=== PATIENT | male | born 1970 | race Caucasian/White ===

== ENCOUNTER 2017-01-04 12:21 | Observation (INO) ==
[2017-01-04 13:08] LABS: Basophils % 0.7 %; Eosinophils # 0.1 K/mcL (0.0-0.6); Eosinophils % 2.1 %; Hematocrit 33.6 % (37.5-50.1); Hemoglobin 11.1 g/dL (12.9-16.9); Immature Granulocytes % 0.7 % (0-4); Lymphocytes % 34.2 %; Mean Corpuscular Hemoglobin 31.5 pg (28.0-33.3); Mean Corpuscular Volume 95.5 fL (83.0-100.0); Mean Platelet Volume 10.7 fL (9.4-12.4); Monocytes # 0.2 K/mcL (0.0-1.3); Monocytes % 8.2 %; Neutrophils # 1.5 K/mcL (1.6-8.9); Platelet Count 113 K/mcL (140-400); Red Blood Count 3.52 M/mcL (4.19-5.50); Red Cell Distribution Width 14.6 % (11.5-14.5); Segmented Neutrophils % 54.1 %
[2017-01-04 13:24] LABS: Alanine Aminotransferase 31 Units/L (0-55); Albumin 2.3 g/dL (3.5-5.0); Albumin/Globulin Ratio 0.5 (1.1-2.2); Alkaline Phosphatase 77 Units/L (38-126); Aspartate Amino Transferase 37 Units/L (5-34); BUN/Creatinine Ratio 26 (6-26); Bilirubin,Total 0.3 mg/dL (0.2-1.2); Blood Urea Nitrogen 24 mg/dL (8-26); Calcium 8.7 mg/dL (8.6-10.8); Carbon Dioxide 31 mEq/L (19-29); Chloride 104 mEq/L (98-109); Globulin 4.4 g/dL (2.4-3.5); Glucose 222 mg/dL (70-99); Osmolality,Calculated 295 (280-300); Potassium 4.7 mEq/L (3.5-4.5); Sodium 137 mEq/L (136-145); Total Protein 6.7 g/dL (6.0-8.3); eGFR For African Americans > 60 (> 60); eGFR For Non-African Americans > 60 (> 60)
[2017-01-04 13:31] LABS: INR 1.2; Prothrombin Time 13.5 Seconds (9.4-12.1)
[2017-01-04 13:33] LABS: Activated Partial Thrombo Time 32.5 Seconds (26.0-36.0)
[2017-01-04] MEDS ORDERED: Nitroglycerin 0.4 MG TAB.SUBL SL PRN (14:16)
[2017-01-04] MEDS ORDERED: *HR* OxyCODONE/APAP 5/325 TABLET PO ONE (15:13)
[2017-01-04] MEDS ORDERED: Aspirin 81 MG TAB.CHEW ONE (15:20)
[2017-01-04] MEDS ORDERED: Aspirin 81 MG TAB.CHEW PO STA (15:25)
--- NOTE | 2017-01-04 15:38 | Emergency Department Note ---
Disposition Clinical Impression: Chest pain Disposition: Admitted As Inpatient Referrals: Richard Monte DO [Primary Care Provider] - Forms: ED Satisfaction Letter Chest Pain HPI - General Chief Complaint: ED Chest Pain Stated Complaint: Chest Pain Time Seen by Provider: 01/04/17 12:31 Source: patient Limitations: no limitations Vital Signs Reviewed: Yes Nursing Notes Reviewed: Yes - History of Present Illness HPI Narrative: Patient plains of chest pain that started last night. Patient states is similar to pain he had before and a heart attack last year. Patient also shortness of breath associated with this. Patient has recent chills denies numbness and tingling. Patient does note he feels the pain is going up his neck and down his left arm which is not had before. Patient took nitroglycerin was given subminimal relief but the symptoms came back. Patient denies dizziness Severity scale (1-10): 8 - Related Data Home Medications Medication Instructions Recorded Confirmed Aspirin [Adult Low Dose Aspirin EC] 81 mg PO DAILY 12/14/15 05/16/16 Atorvastatin [Lipitor] 80 mg PO HS 12/14/15 05/16/16 Clopidogrel [Plavix] 75 mg PO DAILY 12/14/15 05/16/16 Gabapentin [Neurontin] 600 mg PO TID 12/14/15 05/16/16 Lisinopril [Zestril] 5 mg PO DAILY 12/14/15 05/16/16 Metformin HCl [Metformin HCl ER] 500 mg PO DAILY 12/14/15 05/16/16 Metoprolol Succinate 50 mg PO DAILY 12/14/15 05/16/16 TraZODone 100 mg PO HS 12/14/15 05/16/16 Baclofen 20 mg PO TID 05/16/16 05/16/16 Pantoprazole Sodium [Protonix] 40 mg PO DAILY 05/16/16 05/16/16 Previous Rx's Medication Instructions Recorded HYDROcodone/Acet 10/325 mg [Cana 1 tab PO Q8HR PRN #20 tab 05/03/16 10-325 mg] Insulin ASPART [Novolog Flexpen] 15 unit SQ TID #0 05/18/16 Insulin Glargine,Hum.rec.anlog 50 unit SQ HS #0 05/18/16 [Lantus Solostar] Isosorbide MONOnitrate (24 HR) 30 mg PO DAILY #30 tab.er.24h 05/18/16 [Imdur] Cephalexin [Keflex] 500 mg PO TID #30 capsule 07/12/16 Sulfamethoxazole/Trimeth DS 1 each PO BID #20 tablet 07/12/16 [Bactrim DS] Amoxicillin 875 mg PO BID #20 tablet 08/19/16 Benzonatate [Tessalon] 200 mg PO TID PRN #30 capsule 08/19/16 Hydrocodone/Acetaminophen [Cana 1 tab PO TID PRN #6 tab 08/19/16 5-325 Tablet] Tobramycin/Dex Opth DROPS 1 drop BOTH EYES QID #5 bottle 08/19/16 [Tobradex Opth Drops] Benzonatate [Tessalon] 200 mg PO TID PRN #30 capsule 12/24/16 Cephalexin [Keflex] 500 mg PO QID #40 capsule 12/24/16 GuaiFENesin ER [Mucinex] 1,200 mg PO BID #20 tbbp.12hr 12/24/16 Allergies Allergy/AdvReac Type Severity Reaction Status Date / Time morphine AdvReac Agitated Verified 01/04/17 12:25 All systems ED: reviewed and negative except as stated. Chest Pain PMH - Past Medical History Medical history: Reports: coronary artery disease, diabetes, hepatitis Surgical history: Reports: angioplasty/stent, orthopedic, other Psychiatric history: Reports: depression - Social History Smoking Status: Current every day smoker Alcohol use: Reports: none Drug use: Reports: none Physical Exam - General Limitations: no limitations General appearance: alert, in no apparent distress - Head Head exam: atraumatic, normocephalic, normal inspection - Eye Eye exam: Present: normal appearance, PERRL, EOMI - ENT ENT exam: normal exam, normal oropharynx, mucous membranes moist - Neck Neck exam: Present: normal inspection, full ROM, trachea midline - Chest Chest inspection: Present: normal inspection, symmetric chest wall rise - Respiratory Respiratory exam: Present: normal lung sounds bilaterally - Cardiovascular Cardiovascular exam: Present: regular rate, normal rhythm, normal heart sounds - Abdominal Exam Abdominal exam: Present: soft, Non-Tender. Absent: tenderness, distention, guarding, rebound, rigidity - Extremities Exam Extremities exam: Present: normal inspection, full ROM. Absent: tenderness, pedal edema - Back Exam Back exam: Present: normal inspection, full ROM. Absent: tenderness - Neurological Exam Neurological exam: Present: alert, oriented X3 - Psychiatric Psychiatric exam: Present: normal affect, normal mood - Skin Skin exam: Present: warm, dry, intact, normal color Course Vital Signs Temperature 97.5 F L 01/04/17 12:25 Pulse Rate 77 01/04/17 12:25 Respiratory Rate 17 01/04/17 12:25 Blood Pressure 181/116 01/04/17 12:25 O2 Sat by Pulse Oximetry 97 01/04/17 12:25 Temperature 97.5 F L 01/04/17 12:25 Pulse Rate 75 01/04/17 14:28 Respiratory Rate 18 01/04/17 14:28 Blood Pressure 165/117 01/04/17 14:53 O2 Sat by Pulse Oximetry 97 01/04/17 14:28 Oxygen Delivery Oxygen Delivery Room Air Chest Pain - Differential Diagnosis Likely: stable angina, atypical chest pain, st elevation myocardial infraction, costalchondritis, chest pain - Lab Data Lab results reviewed: Yes I reviewed the patient's lab results. Result diagrams: 01/04/17 12:53 01/04/17 12:53 Lab Results 01/04/17 01/04/17 01/04/17 Range/Units 12:53 12:53 12:53 WBC 2.8 L (4.3-11.1) K/mcL RBC 3.52 L (4.19-5.50) M/mcL Hgb 11.1 L (12.9-16.9) g/dL Hct 33.6 L (37.5-50.1) % MCV 95.5 (83.0-100.0) fL MCH 31.5 (28.0-33.3) pg MCHC 33.0 (31.6-35.5) g/dL RDW 14.6 H (11.5-14.5) % Plt Count 113 L (140-400) K/mcL MPV 10.7 (9.4-12.4) fL Immature Gran % 0.7 (0-4) % Seg Neutrophils % 54.1 % Lymphocytes % 34.2 % Monocytes % 8.2 % Eosinophils % 2.1 % Basophils % 0.7 % Neutrophils # 1.5 L (1.6-8.9) K/mcL Lymphocytes # 1.0 (0.6-4.6) K/mcL Monocytes # 0.2 (0.0-1.3) K/mcL Eosinophils # 0.1 (0.0-0.6) K/mcL Basophils # 0.0 (0.0-0.2) K/mcL PT 13.5 H (9.4-12.1) Seconds INR 1.2 APTT 32.5 (26.0-36.0) Seconds Sodium 137 (136-145) mEq/L Potassium 4.7 H (3.5-4.5) mEq/L Chloride 104 (98-109) mEq/L Carbon Dioxide 31 H (19-29) mEq/L BUN 24 (8-26) mg/dL Creatinine 0.94 (0.72-1.25) mg/dL Est GFR ( Amer) > 60 (> 60) Est GFR (Non-Af Amer) > 60 (> 60) BUN/Creatinine Ratio 26 (6-26) Glucose 222 H (70-99) mg/dL Calculated Osmolality 295 (280-300) Calcium 8.7 (8.6-10.8) mg/dL Total Bilirubin 0.3 (0.2-1.2) mg/dL AST 37 H (5-34) Units/L ALT 31 (0-55) Units/L Alkaline Phosphatase 77 (38-126) Units/L Troponin I (0-0.03) ng/mL Serum Total Protein 6.7 (6.0-8.3) g/dL Albumin 2.3 L (3.5-5.0) g/dL Globulin 4.4 H (2.4-3.5) g/dL Albumin/Globulin Ratio 0.5 L (1.1-2.2) 01/04/17 Range/Units 12:53 WBC (4.3-11.1) K/mcL RBC (4.19-5.50) M/mcL Hgb (12.9-16.9) g/dL Hct (37.5-50.1) % MCV (83.0-100.0) fL MCH (28.0-33.3) pg MCHC (31.6-35.5) g/dL RDW (11.5-14.5) % Plt Count (140-400) K/mcL MPV (9.4-12.4) fL Immature Gran % (0-4) % Seg Neutrophils % % Lymphocytes % % Monocytes % % Eosinophils % % Basophils % % Neutrophils # (1.6-8.9) K/mcL Lymphocytes # (0.6-4.6) K/mcL Monocytes # (0.0-1.3) K/mcL Eosinophils # (0.0-0.6) K/mcL Basophils # (0.0-0.2) K/mcL PT (9.4-12.1) Seconds INR APTT (26.0-36.0) Seconds Sodium (136-145) mEq/L Potassium (3.5-4.5) mEq/L Chloride (98-109) mEq/L Carbon Dioxide (19-29) mEq/L BUN (8-26) mg/dL Creatinine (0.72-1.25) mg/dL Est GFR ( Amer) (> 60) Est GFR (Non-Af Amer) (> 60) BUN/Creatinine Ratio (6-26) Glucose (70-99) mg/dL Calculated Osmolality (280-300) Calcium (8.6-10.8) mg/dL Total Bilirubin (0.2-1.2) mg/dL AST (5-34) Units/L ALT (0-55) Units/L Alkaline Phosphatase (38-126) Units/L Troponin I 0.03 (0-0.03) ng/mL Serum Total Protein (6.0-8.3) g/dL Albumin (3.5-5.0) g/dL Globulin (2.4-3.5) g/dL Albumin/Globulin Ratio (1.1-2.2) - Radiology Data Radiology results reviewed: Yes I reviewed the patient's radiology results. Chest X-Ray 01/04/17 12:33 IMPRESSION: No acute cardiopulmonary process. D/ / Sophie Buchanan MD / Sophie Buchanan MD Interpreting Provider: Sophie Buchanan MD - EKG Data EKG attestation: Yes I reviewed and interpreted this EKG. EKG shows normal: sinus rhythm Rate: normal Rhythm: NSR Heart Score - Score History: Moderately Suspicious EKG: Normal Age: Less than 45 Risk Factors: Equal/Greater than 3 risk factor or history of atherosclerotic disease Troponin: Less than normal limit HEART Score Total: 3
--- NOTE | 2017-01-04 18:32 | Internal Med History&Physical ---
Date of Encounter: 01/04/17 Time of Encounter: 18:25 Assessment and Plan (1) Hypertension Current visit: No Status: Chronic uncontrolled patient know to be non compliant will resume home meds Qualifiers: Hypertension type: essential hypertension Qualified Code(s): I10 - Essential (primary) hypertension (2) Hyperlipidemia Current visit: No Status: Chronic check in am Qualifiers: Hyperlipidemia type: unspecified Qualified Code(s): E78.5 - Hyperlipidemia , unspecified (3) Hepatitis C Current visit: No Status: Chronic chronic Qualifiers: Viral hepatitis chronicity: unspecified Hepatic coma status: without hepatic coma Qualified Code(s): B19.20 - Unspecified viral hepatitis C without hepatic coma (4) Cirrhosis Current visit: No Status: Chronic chronic Qualifiers: Hepatic cirrhosis type: unspecified hepatic cirrhosis Ascites presence: without ascites Qualified Code(s): K74.60 - Unspecified cirrhosis of liver (5) Tobacco abuse Current visit: No Status: Chronic still smokes (6) History of myocardial infarction Current visit: No Status: Chronic (7) Diabetes Current visit: No Status: Chronic will place on sliding scale Qualifiers: Diabetes mellitus type: type 2 Diabetes mellitus complication status: with unspecified complications Diabetes mellitus usp insulin use: with termite control representative use Qualified Code(s): E11.8 - Type 2 diabetes mellitus with unspecified complications; Z79.4 - snf (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 insulin (8) Uncontrolled type II diabetes mellitus Current visit: No Status: Chronic Qualifiers: Diabetes mellitus complication status: with unspecified complications Diabetes mellitus usp insulin use: with termite control representative use Qualified Code(s) : E11.8 - Type 2 diabetes mellitus with unspecified complications; E11.65 - Type 2 diabetes mellitus with hyperglycemia; Z79.4 - snf (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 insulin (9) HTN (hypertension) Current visit: No Status: Chronic uncontrolled Qualifiers: Hypertension type: essential hypertension Qualified Code(s): I10 - Essential (primary) hypertension (10) Chest pain Current visit: No Status: Acute has history of cad but this chest pain is atypical despite several hours of chest pain ekg and troponin negative however nuclear stress in am and cardiology consult Qualifiers: Chest pain type: unspecified Qualified Code(s): R07.9 - Chest pain, unspecified Internal Medicine - H&P: HPI Chief complaint: cchest pain Admitted From: Emergency Dept Plans for Post Hospital Care: Home History of present illness: Mr. Hi is a 46 year old male Patient with history of CAD, had multiple angioplasties in the past LAD: RCA and diagonal last intervention May 16 last year had a stent to RCA and also diagonal EF 40-45% at that time. Patient Returned about a week after with chest pain underwent Cardiac cath again showed stents were all patent He was on again after taht with chest pain Patient also has history of cirrhosis, diabetes, hypercholesterol, neuropathy, chronic active hepatitis , COPD, Patient comes in to ER that he developed chest pain yesterday which is a constant sharp pain that sometimes pressure constant but sometimes get worse . came into the emergency room and given Percocet, nitroglycerin and does not want nitro lycerin says makes chest pain worse chest pain sometime going to his neck and left arm still having pain EKG was unremarkable troponin so far is negative Past Med Surg Social Fam HX - Past Medical History Medical history: coronary artery disease, diabetes, hepatitis Psychiatric history: depression - Past Surgical History Surgical History: angioplasty/stent, orthopedic, other - Social History Smokeless Tobacco Status: No Alcohol use: none Drug use: none - Family History Mother Family Member Ethnicity: Non- Living Status: Still Living Hx Family GI Disorders: Yes (Irritable bowel syndrome) Hx Family Endocrine Disorder: Yes Father Hx Family Cardiac Disorders: Yes (CAD s/p CABG) Internal Medicine - H&P: Meds Aspirin [Adult Low Dose Aspirin EC] 81 mg PO DAILY 12/14/15 [History] Clopidogrel [Plavix] 75 mg PO DAILY 12/14/15 [History] Metformin HCl [Metformin HCl ER] 1,000 mg PO DAILY 12/14/15 [History] Metoprolol Succinate 50 mg PO DAILY 12/14/15 [History] TraZODone 100 mg PO HS 12/14/15 [History] Baclofen 20 mg PO TID 05/16/16 [History] Pantoprazole Sodium [Protonix] 40 mg PO DAILY 05/16/16 [History] Insulin ASPART [Novolog Flexpen] 15 unit SQ TID #0 05/18/16 [Rx] Insulin Glargine,Hum.rec.anlog [Lantus Solostar] 50 unit SQ HS #0 05/18/16 [Rx] Benzonatate [Tessalon] 200 mg PO TID PRN #30 capsule 12/24/16 [Rx] Cephalexin [Keflex] 500 mg PO QID #40 capsule 12/24/16 [Rx] Gabapentin [Neurontin] 800 mg PO TID 01/04/17 [History] Lisinopril-HCTZ 20-12.5 [Prinzide 20-12.5] 1 tab PO BID 01/04/17 [History] Nitroglycerin [Nitrostat] 0.4 mg SL AD PRN 01/04/17 [History] Oxycodone HCl/Acetaminophen [Percocet 10-325 mg Tablet] 1 - 2 tab PO Q6H PRN [History] Allergies morphine Adverse Reaction (Verified 01/04/17 12:25) Agitated All Systems PM: A 10-system review of systems was performed and is negative for pertinent findings except as documented above in the HPI. - Constitutional Constitutional: no chills, no fever(s), no night sweats - EENT Eyes: no change in vision, no discharge, no pain, no photophobia Ears: no ear discharge, no ear pain, no tinnitus Nose, mouth and throat: no dysphagia, no nasal discharge, no neck pain, no sore throat - Cardiovascular Cardiovascular ROS IM: chest pain, dyspnea - Respiratory Respiratory: dyspnea, dyspnea on exertion - Gastrointestinal Gastrointestinal: no abdominal pain, no diarrhea, no hematemesis, no hematochezia, no melena, no nausea, no vomiting - Musculoskeletal Musculoskeletal ROS IM: no numbness, no tingling - Integumentary Integumentary IM: no rash, no unusual bruising - Neurological Neurological ROS: no confusion, no convulsions, no focal weakness, no numbness, no tingling, no tremor(s) - Constitutional Vitals: Temp Pulse Resp BP Pulse Ox 97.5 F L 75 18 165/117 97 01/04/17 12:25 01/04/17 14:28 01/04/17 14:28 01/04/17 14:53 01/04/17 14:28 General appearance: Present: A&O X 2 - Head Head exam: Present: atraumatic, normocephalic - Eye Eye exam: Present: PERRL, conjuntiva pink, sclera anicteric Pupils: Present: PERRL - Neck Neck exam general surgery: Present: supple, trachea midline. Absent: lymphadenopathy - Respiratory Respiratory exam: Present: CTAB. Absent: accessory muscle use, rales, rhonchi, wheezes - Cardiovascular Cardiovascular exam: Present: RRR, +S1, +S2. Absent: diastolic murmur, gallop, rubs, systolic murmur - Extremities Exam Extremities exam: Present: warm, radial pulses palpable and symetrical. Absent : calf tenderness, cyanotic, pedal edema Internal Med - H&P Results - Labs CBC & Chem 7: 01/04/17 12:53 01/04/17 12:53
[2017-01-04] MEDS ORDERED: *HR* HYDROmorphone (PF) 1 MG/ML SYRINGE IVP PRN (18:38)
[2017-01-04] MEDS ORDERED: Naloxone 0.4 MG/ML INJ IVP PRN (18:38)
[2017-01-04] MEDS ORDERED: Ondansetron 4 MG/2 ML VIAL IVP PRN (18:38)
[2017-01-04] MEDS ORDERED: Benzonatate 100 MG CAPSULE PO PRN (18:46)
[2017-01-04] MEDS ORDERED: D5% in Water 1,000 ML IVC PRN (18:48)
[2017-01-04] MEDS ORDERED: Dextrose Gel 15 GM PO PRN ×2 (18:48)
[2017-01-04] MEDS ORDERED: *HR* Dextrose 50 % in Water (Syg) 50 ML SYRINGE IVP PRN (18:48)
[2017-01-04] MEDS: Gabapentin 400 MG CAPSULE PO SCH (19:59)
[2017-01-04] MEDS: Baclofen 10 MG TABLET PO SCH (19:59)
[2017-01-04] MEDS: 0.9 % Sodium Chloride 1,000 ML IVC SCH (19:59)
[2017-01-04] MEDS ORDERED: Insulin DETEMIR 100 UNIT/ML X5UNITS SQ SCH (21:00)
[2017-01-04] MEDS ORDERED: traZODone 50 MG TABLET PO SCH (21:00)
[2017-01-04] MEDS ORDERED: Insulin LISPRO 300 UNITS/3 ML VIAL SQ SCH (21:00)
[2017-01-04] MEDS: *HR* OxyCODONE/APAP 10/325 TABLET PO PRN (21:10)
[2017-01-04] MEDS: Lisinopril-HCTZ 20-12.5mg TABLET PO SCH (21:11)
[2017-01-05] MEDS ORDERED: Insulin LISPRO 300 UNITS/3 ML VIAL SQ SCH
[2017-01-05 01:54] LABS: Basophils % 0.6 %; Eosinophils # 0.1 K/mcL (0.0-0.6); Hematocrit 33.8 % (37.5-50.1); Hemoglobin 11.3 g/dL (12.9-16.9); Immature Granulocytes % 0.3 % (0-4); Lymphocytes # 1.8 K/mcL (0.6-4.6); Lymphocytes % 52.1 %; Mean Corpuscular HGB Conc 33.4 g/dL (31.6-35.5); Mean Corpuscular Hemoglobin 32.1 pg (28.0-33.3); Mean Platelet Volume 11.8 fL (9.4-12.4); Monocytes # 0.3 K/mcL (0.0-1.3); Monocytes % 8.3 %; Neutrophils # 1.2 K/mcL (1.6-8.9); Platelet Count 129 K/mcL (140-400); Red Blood Count 3.52 M/mcL (4.19-5.50); Red Cell Distribution Width 14.7 % (11.5-14.5); Segmented Neutrophils % 35.7 %
[2017-01-05 02:14] LABS: Alanine Aminotransferase 28 Units/L (0-55); Albumin 2.2 g/dL (3.5-5.0); Albumin/Globulin Ratio 0.5 (1.1-2.2); Alkaline Phosphatase 78 Units/L (38-126); Aspartate Amino Transferase 30 Units/L (5-34); BUN/Creatinine Ratio 21 (6-26); Bilirubin,Total 0.3 mg/dL (0.2-1.2); Blood Urea Nitrogen 21 mg/dL (8-26); Calcium 8.6 mg/dL (8.6-10.8); Carbon Dioxide 29 mEq/L (19-29); Chloride 108 mEq/L (98-109); Chol/HDL Ratio 8.2 (0-4.9); Cholesterol 196 mg/dL (< 200); Globulin 4.2 g/dL (2.4-3.5); Glucose 55 mg/dL (70-99); HDL Cholesterol 24 mg/dL (40-59); LDL Cholesterol,Calculated 138 mg/dL (0-99); Magnesium 1.6 mg/dL (1.6-2.6); Osmolality,Calculated 297 (280-300); Potassium 4.1 mEq/L (3.5-4.5); Sodium 143 mEq/L (136-145); Total Protein 6.4 g/dL (6.0-8.3); Triglycerides 170 mg/dL (< 150); eGFR For African Americans > 60 (> 60); eGFR For Non-African Americans > 60 (> 60)
[2017-01-05] MEDS: *HR* OxyCODONE/APAP 10/325 TABLET PO PRN ×2 (04:01→11:56)
[2017-01-05] MEDS ORDERED: Regadenoson 0.4 MG/5 ML SYRINGE IVP ONE (06:44)
[2017-01-05] MEDS: Insulin LISPRO 300 UNITS/3 ML VIAL SQ SCH ×2 (08:02→11:55)
[2017-01-05] MEDS ORDERED: Aspirin Enteric Coated 81 MG Tablet PO SCH (09:00)
[2017-01-05] MEDS ORDERED: Metoprolol XL (24 HR) Succ 50 MG TAB.ER.24H PO SCH (09:00)
[2017-01-05] MEDS: Gabapentin 400 MG CAPSULE PO SCH (10:38)
[2017-01-05] MEDS: Lisinopril-HCTZ 20-12.5mg TABLET PO SCH (10:38)
[2017-01-05] MEDS: Baclofen 10 MG TABLET PO SCH (10:39)
[2017-01-05 10:47] VITALS: BP 154/89
--- NOTE | 2017-01-05 10:49 | Nuclear Medicine Stress Report ---
Regadenoson Nuclear Stress Name: Bartolo Hi Date of Study: 01/05/2017 Date: 1970 Ht: 72.0 in Medical Record#: [id number] Age: 46 Wt: 212.0 lb Gender: Male Order #: [id number] Location: [facility] Room: [facility] Supervising Provider: Markell Ford CNP Reading Physician: Jorge L Wood MD, [facility] Ordering Physician: Tank Whitehead DO Primary Care Physician: Richard Monte DO Stress Technologist: Montse Bowers, [employer],[facility] Welder Operator: Chris Lubin Indications: Coronary Artery Disease, Chest Pain Impression: Patient reported moderate chest pain prior to the test. Chest pain did not change with regadenoson. No significant ECG changes with regadenoson. The left ventricle is dilated. LVEDV = 202 mL. Gated LVEF = 56%. There is a medium sized, severe intensity, fixed perfusion defect involving the basal inferoseptum, basal-mid inferior wall, and basal-mid inferolateral wall. Findings are consistent with myocardial infarction involving the basal inferoseptum, basal-mid inferior wall, and basal-mid inferolateral wall. There is no evidence of reversible myocardial ischemia. History: Hypertension Diabetes History of Smoking Prior PCI Stress Test Summary: Stress Test Type: Pharmacologic Regadenoson 0.4mg/5ml given IV Baseline Information: Initial Heart Rate: 72 Blood Pressure: 148/92 Stress Information: Test Terminated Due to (primary): As per protocol Maximum Blood Pressure: 168/80 Maximum Heart Rate: 86 Percent Maximum Heart Rate Achieved: 49 Double Product: 93000 Symptoms: Chest pain Nuclear Summary: SPECT myocardial perfusion imaging using Tc99m Sestamibi given intravenously was performed at rest and following cardiac stress testing. The resting images were obtained following initial dose of 10.5 mCi. Following stress an additional dose of 32.2 mCi was given at peak exercise or 30 seconds post regadenoson infusion. Findings: Stress Note * Resting ECG demonstrated sinus rhythm, non-specific ST abnormality. * No baseline arrhythmias were noted. * Patient reported moderate chest pain prior to the test. Chest pain did not change with regadenoson. * No arrhythmias were noted during stress. * No significant ECG changes with regadenoson. Hemodynamic responses * Normal hemodynamic responses to pharmacologic stress. Study Quality * Study quality is average. Gated EF % * Gated LVEF = 56%. Left Ventricle * The left ventricle is dilated. LVEDV = 202 mL. * There is a medium sized, severe intensity, fixed perfusion defect involving the basal inferoseptum, basal-mid inferior wall, and basal-mid inferolateral wall. * Findings are consistent with myocardial infarction involving the basal inferoseptum, basal-mid inferior wall, and basal-mid inferolateral wall. * There is no evidence of reversible myocardial ischemia. TID * No evidence of transient ischemic dilatation. Updated by Jorge L Wood MD, FACC on 01/05/2017 10:44:43 AM electronically signed on 01/05/2017 10:45:33 AM with status of Final
[2017-01-05] MEDS: 0.9 % Sodium Chloride 1,000 ML IVC SCH (12:12)
--- NOTE | 2017-01-05 15:05 | Discharge Summary ---
Date of Encounter: 01/05/17 Time of Encounter: 14:15 - Discharge Diagnosis (1) Chest pain Priority: Primary Status: Acute Comments: ACS ruled out, follow-up outpatient. Started on Imdur (2) Drug-seeking behavior Priority: Primary Status: Suspected Comments: Patient appeared sedated/oovermedicated with continuation of his regular home pain meds while admitted (OARRS report checked out okay). Even though he was quite sedated on examination, he still requested anxiety medication thinking that his attacks of chest pain are anxiety related. No further control substances were added to his regimen, started on Imdur, follow-up outpatient (3) Hypertension Priority: Secondary Status: Chronic Comments: Borderline hypertensive at times, recommended the blood pressure checks, keeping a log, and following up outpatient. Qualifiers: Hypertension type: essential hypertension Qualified Code(s): I10 - Essential (primary) hypertension (4) Hyperlipidemia Priority: Secondary Status: Chronic Comments: Lipid panel abnormal, started on a statin, recommended low-cholesterol diet Qualifiers: Hyperlipidemia type: unspecified Qualified Code(s): E78.5 - Hyperlipidemia , unspecified (5) Hepatitis C Priority: Secondary Status: Chronic Comments: LFT stable, follow-up outpatient Qualifiers: Viral hepatitis chronicity: unspecified Hepatic coma status: without hepatic coma Qualified Code(s): B19.20 - Unspecified viral hepatitis C without hepatic coma (6) Cirrhosis Priority: Secondary Status: Chronic Qualifiers: Hepatic cirrhosis type: unspecified hepatic cirrhosis Ascites presence: without ascites Qualified Code(s): K74.60 - Unspecified cirrhosis of liver (7) Tobacco abuse Priority: Secondary Status: Chronic Comments: One pack per day smoker since he was a child. Declined counseling (8) Low back pain Priority: Secondary Status: Chronic Qualifiers: Chronicity: chronic Back pain laterality: midline Sciatica presence: without sciatica Qualified Code(s): M54.5 - Low back pain; G89.29 - Other chronic pain (9) Status post lumbar surgery Priority: Secondary Status: Chronic (10) History of myocardial infarction Priority: Secondary Status: Chronic (11) Stented coronary artery Priority: Secondary Status: Chronic Comments: Continue aspirin and Plavix, follow-up outpatient (12) DVT prophylaxis Priority: Primary Status: Acute Comments: Observation patient. Up ad nacho. (13) CAD, multiple vessel Priority: Secondary Status: Chronic (14) Uncontrolled type II diabetes mellitus Priority: Secondary Status: Chronic Comments: Patient with long history of noncompliance. Recent A1c at the end of last year is 9.7%. Recommend continued follow-up outpatient. Qualifiers: Diabetes mellitus complication status: with hyperglycemia Diabetes mellitus intermediate manager insulin use: with shelter use Qualified Code(s): E11.65 - Type 2 diabetes mellitus with hyperglycemia; Z79.4 - intermediate manager (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 insulin (15) History of noncompliance with medical treatment Priority: Secondary Status: Chronic - Discharge Medications Prescriptions: Albuterol Sulfate [Albuterol Inhaler] 2 puff IH Q4HR PRN #1 hfa.aer.ad PRN Reason: Shortness Of Breath Fluticasone/Salmeterol [Advair 250-50 Diskus] 1 each IH BID #1 blst.w.dev Isosorbide MONOnitrate (24 HR) [Imdur] 60 mg PO DAILY #30 tab.er.24h Home Medications: Aspirin [Adult Low Dose Aspirin EC] 81 mg PO DAILY 12/14/15 [History] Clopidogrel [Plavix] 75 mg PO DAILY 12/14/15 [History] Metformin HCl [Metformin HCl ER] 1,000 mg PO DAILY 12/14/15 [History] Metoprolol Succinate 50 mg PO DAILY 12/14/15 [History] TraZODone 100 mg PO HS 12/14/15 [History] Baclofen 20 mg PO TID 05/16/16 [History] Pantoprazole Sodium [Protonix] 40 mg PO DAILY 05/16/16 [History] Insulin ASPART [Novolog Flexpen] 15 unit SQ TID #0 05/18/16 [Rx] Insulin Glargine,Hum.rec.anlog [Lantus Solostar] 50 unit SQ HS #0 05/18/16 [Rx] Benzonatate [Tessalon] 200 mg PO TID PRN #30 capsule 12/24/16 [Rx] Cephalexin [Keflex] 500 mg PO QID #40 capsule 12/24/16 [Rx] Gabapentin [Neurontin] 800 mg PO TID 01/04/17 [History] Lisinopril-HCTZ 20-12.5 [Prinzide 20-12.5] 1 tab PO BID 01/04/17 [History] Nitroglycerin [Nitrostat] 0.4 mg SL AD PRN 01/04/17 [History] Oxycodone HCl/Acetaminophen [Percocet 10-325 mg Tablet] 1 - 2 tab PO Q6H PRN [History] Albuterol Sulfate [Albuterol Inhaler] 2 puff IH Q4HR PRN #1 hfa.aer.ad 01/05/17 [Rx] Fluticasone/Salmeterol [Advair 250-50 Diskus] 1 each IH BID #1 blst.w.dev [Rx] Isosorbide MONOnitrate (24 HR) [Imdur] 60 mg PO DAILY #30 tab.er.24h 01/05/17 [ Rx] Allergies/Adverse Reactions: Allergies morphine Adverse Reaction (Verified 01/04/17 12:25) Agitated Procedures/tests Complete & Pending: Procedures Performed prior 72 hours Category Date Time Status NM terry perf SPECT multi [NM] Routine Exams 01/04/17 18:46 Taken ECG 12 lead ECG [ECG] AM 0600 Y 01/05/17 06:00 Ordered SP pharm nuclear stress Routine Y 01/04/17 18:46 Completed Date of admission: 01/04/17 17:22 Primary care physician: Phong Hardy Discharging clinician: Kell Morales Anticipated date of discharge: 01/05/17 - Patient Status Disposition: Home, Self-Care Condition: Fair Functional capacity at discharge: independent ambulation Overall status at discharge: patient is back to baseline - Discharge Instructions Follow Up With: Richard Monte DO [Primary Care Provider] - [facility] [Provider Group] Additional Instructions: Follow-up with primary care provider within one to 2 weeks, follow-up with cardiology within 1 week - Diet and Activity Activity: increase activity as tolerated Diet: diabetic diet, low fat, low cholesterol, low salt diet Hospital course: Mr. Hi is a 46 year old male with past medical history of CAD with stent to LAD, uncontrolled diabetes, hepatitis, noncompliance, tobacco abuse. Patient presented to the emergency department chief complaint chest pain that is constant, sharp but sometimes pressure and had gotten worse prompting his presentation to the emergency department. Patient refused nitroglycerin in the emergency department stating he thinks it makes his chest pain worse and he recommended us giving him his Percocet. Patient also endorsed pain in his neck and his left arm. EKG unremarkable. Troponin negative. Chest x-ray negative. Patient was admitted to the hospitalist service for further evaluation and management. Patient had a nuclear stress test that was negative for ischemia or infarct and revealed an ejection fraction of 56%. ACS ruled out. Upon further discussion with the patient, he is a one pack per day smoker since his childhood. On examination, aeration is fair with diffuse expiratory wheezing noted throughout. Patient stating he has never been seen for his lungs and states she has never been diagnosed with COPD. Strong suspicion for undiagnosed COPD. Patient was given inhalers to trial at home and was instructed to follow up closely with his primary care provider. He also continued to complain of chest pain and stated he felt as if it was consistent with anxiety attacks and he requested anxiety medication. Of note, patient appeared overmedicated with his regular home pain medications were resumed. His OARRS report did checkout. He was started on Imdur given that he had a left heart catheter on 05/18/16 which revealed three-vessel coronary artery disease and a patent stent. He will follow-up with cardiology 1 week outpatient. He has a history of poor follow-up and noncompliance and he was educated to keep his appointment with his primary and with cardiology. He was discharged home in stable condition with close outpatient follow-up recommended. ITS Impressions Chest X-Ray 01/04/17 12:33 IMPRESSION: No acute cardiopulmonary process. D/ / Sophie Buchanan MD / Sophie Buchanan MD Interpreting Provider: Sophie Buchanan MD Nuclear stress test impression: Patient reported moderate chest pain prior to the test. Chest pain did not change with Regadenoson. No significant ECG changes with Regadenoson. The left ventricle is dilated. LVEDP equals 202 mL. Gated LVEF equals 56%. There is a medium size, severe intensity, fixed perfusion defect involving the basal inferior septum, basal-mid inferior wall, and basal-mid inferolateral wall. Findings are consistent with myocardial infarction involving the basal inferior septum, basal-mid inferior wall, and basal-mid inferior lateral wall. There is no evidence of reversible myocardial ischemia. - Time Spent with Patient Total time spent providing and/or coordinating discharge services: - Constitutional Vitals: Temp Pulse Resp BP Pulse Ox 97.2 F L 79 17 154/89 96 01/05/17 10:45 01/05/17 10:45 01/05/17 10:45 01/05/17 10:45 01/05/17 10:45 General appearance: Present: A&O X 3, pleasant, no acute distress, answers questions appropriately - Head Head exam: Present: atraumatic, normocephalic - Eye Eye exam: Present: PERRL, conjuntiva pink, sclera anicteric Pupils: Present: PERRL - Neck Neck exam general surgery: Present: supple, trachea midline. Absent: lymphadenopathy - Respiratory Respiratory exam: Present: decreased breath sounds, prolonged expiratory phase, wheezes. Absent: accessory muscle use, rales, respiratory distress, rhonchi - Cardiovascular Cardiovascular exam: Present: RRR, +S1, +S2. Absent: diastolic murmur, gallop, rubs, systolic murmur - GI/Abdominal GI/Abdominal exam: Present: normal bowel sounds, soft, no peritoneal signs. Absent: distended, tenderness - Extremities Exam Extremities exam: Present: warm, radial pulses palpable and symetrical. Absent : calf tenderness, cyanotic, pedal edema - Neurological Exam Neurological exam: Present: alert, CN II-XII intact, normal gait, oriented X3, no focal deficits, strengths equal and symetr throughout. Absent: pronater drift, facial droop, speech deficit - Skin Skin exam: Present: dry, intact, normal color, warm
--- NOTE | 2017-01-07 08:11 | Electrocardiograph Report ---
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
== END 2017-01-05 16:36 | disposition home or self-care (01) ==
LOC: EMEROO 12:21 → 3BNU 12:21 → SUATTDRO 17:22 → 3BNU 19:10
PROVIDERS: ADMIT Nurse Practitioner Family; ATTEND Nurse Practitioner Family

== ENCOUNTER 2017-03-05 19:14 | Inpatient (IN) ==
[2017-03-05] MEDS ORDERED: Aspirin 81 MG TAB.CHEW PO ONE (19:45)
--- NOTE | 2017-03-05 19:48 | Emergency Department Note ---
Disposition Clinical Impression: Non-STEMI (non-ST elevated myocardial infarction) Disposition: Admitted As Inpatient Condition: Fair Time of Disposition: 21:05 Chest Pain HPI - General Chief Complaint: ED Shortness of Breath/Dyspnea Stated Complaint: SOB Dizzy CP Time Seen by Provider: 03/05/17 19:41 Source: patient Mode of arrival: ambulatory Limitations: no limitations Vital Signs Reviewed: Yes Nursing Notes Reviewed: Yes - History of Present Illness HPI Narrative: 46-year-old with coronary artery history his had 6 stents in the past comes in complaining of chest pain. Patient states he was lightheaded and dizzy was at work. Patient was sent to another ER he was evaluated there and was told he had elevated levels and they were going to admit him but he requested transfer here they refused and he left AGAINST MEDICAL ADVICE. Comes here complaining of intermittent chest pain. States that it does feel similar to when he had previous MO. Pt complaint: chest pain Onset (ago): hour(s) Duration: constant Onset: during rest Pain Location: left chest Severity: moderate Severity scale (1-10): 7 Quality: tightness, aching Improves with: nothing Worsens with: nothing - Related Data Home Medications Medication Instructions Recorded Confirmed Aspirin [Adult Low Dose Aspirin EC] 81 mg PO DAILY 12/14/15 03/05/17 Clopidogrel [Plavix] 75 mg PO DAILY 12/14/15 03/05/17 Metformin HCl [Metformin HCl ER] 1,000 mg PO DAILY 12/14/15 03/05/17 Metoprolol Succinate 50 mg PO DAILY 12/14/15 03/05/17 traZODone [TraZODone] 100 mg PO HS 12/14/15 03/05/17 Baclofen 20 mg PO TID 05/16/16 03/05/17 Pantoprazole Sodium [Protonix] 40 mg PO DAILY 05/16/16 03/05/17 Gabapentin [Neurontin] 800 mg PO TID 01/04/17 03/05/17 Lisinopril-HCTZ 20-12.5 [Prinzide 1 tab PO BID 01/04/17 03/05/17 20-12.5] Nitroglycerin [Nitrostat] 0.4 mg SL AD PRN 01/04/17 03/05/17 Furosemide [Lasix] 40 mg PO DAILY 03/05/17 03/05/17 Insulin ASPART [Novolog Flexpen] 0 unit SQ TID 03/05/17 03/05/17 Insulin Glargine,Hum.rec.anlog 60 unit SQ BID 03/05/17 03/05/17 [Lantus Solostar] Potassium Chloride [Klor-Con 10] 10 meq PO DAILY 03/05/17 03/05/17 Previous Rx's Medication Instructions Recorded Albuterol Sulfate [Albuterol 2 puff IH Q4HR PRN #1 hfa.aer.ad 01/05/17 Inhaler] Isosorbide MONOnitrate (24 HR) 60 mg PO DAILY #30 tab.er.24h 01/05/17 [Imdur] Allergies Allergy/AdvReac Type Severity Reaction Status Date / Time morphine AdvReac Agitated Verified 03/05/17 19:36 All systems ED: reviewed and negative except as stated. Constitutional: Denies: fever, chills, weakness, weight change Eyes: Denies: eye pain, eye discharge, vision change ENT ED: Denies: ear pain, throat pain, dental pain, hearing loss, epistaxis, congestion, dysphagia Cardiovascular: Reports: chest pain, other (Lightheadedness). Denies: palpitations, dyspnea on exertion, edema, syncope Respiratory: Denies: cough, dyspnea, wheezes, hemoptysis, stridor Gastrointestinal: Denies: abdominal pain, nausea, vomiting, diarrhea, constipation, hematemesis, melena, hematochezia Genitourinary: Denies: urgency, dysuria, frequency, hematuria Musculoskeletal: Denies: back pain, neck pain, arthralgia, myalgia Integumentary: Denies: rash, abrasion, lesions Neurological: Denies: headache, weakness, numbness, paresthesias, confusion, abnormal gait, vertigo Psychiatric: Denies: anxiety, depression, suicidal thoughts, homicidal thoughts , auditory hallucinations, visual hallucinations Endocrine: Denies: fatigue Hematological/Lymphatic: Denies: easy bleeding, easy bruising Allergic/Immunologic: Denies: facial swelling, urticaria Chest Pain PMH - Past Medical History Medical history: Reports: coronary artery disease, diabetes, hepatitis Surgical history: Reports: angioplasty/stent, orthopedic, other Psychiatric history: Reports: depression - Social History Smoking Status: Current every day smoker Alcohol use: Reports: none Drug use: Reports: none Physical Exam - General Limitations: no limitations General appearance: alert - Head Head exam: atraumatic, normocephalic, normal inspection - Eye Eye exam: Present: normal appearance, PERRL, EOMI - ENT ENT exam: normal exam, normal oropharynx, mucous membranes moist - Neck Neck exam: Present: normal inspection, full ROM, trachea midline - Chest Chest inspection: Present: normal inspection, symmetric chest wall rise - Respiratory Respiratory exam: Present: normal lung sounds bilaterally - Cardiovascular Cardiovascular exam: Present: regular rate, normal rhythm, normal heart sounds - Abdominal Exam Abdominal exam: Present: soft, Non-Tender. Absent: tenderness, distention, guarding, rebound, rigidity - Extremities Exam Extremities exam: Present: normal inspection, full ROM. Absent: tenderness, pedal edema - Expanded Lower Extremity Exam Neurovascular/Tendon exam: Absent: motor deficit, sensory deficit, tendon deficit Gait: observed and normal - Back Exam Back exam: Present: normal inspection, full ROM. Absent: tenderness - Neurological Exam Neurological exam: Present: alert, oriented X3 - Psychiatric Psychiatric exam: Present: normal affect, normal mood - Skin Skin exam: Present: warm, dry, intact, normal color Course - Reevaluation(s) Reevaluation #1: 46-year-old male who comes in complaining of chest pain. Patient has a history of 6 stents and significant coronary artery disease. His nonspecific changes, troponin is +0.33 with an elevated creatinine 1.49. I discussed the case with cardiology workup and admit heparinize and they will see him in consult. Time: 21:03 Reevaluation #2: The patient currently does not complain of chest pain. Vitals are stable patient will be admitted. Time: 22:45 - Consultations Consultation #1: Discussed with adm Ashleyit. Time: 21:02 Consultation #2: Discussed with Dr. Brian leong. Time: 22:16 Vital Signs Temperature 97.6 F 03/05/17 19:32 Pulse Rate 81 03/05/17 19:32 Respiratory Rate 18 03/05/17 19:32 Blood Pressure 163/94 03/05/17 19:32 O2 Sat by Pulse Oximetry 97 03/05/17 19:32 Temperature 97.6 F 03/05/17 19:32 Pulse Rate 74 03/05/17 20:59 Respiratory Rate 18 03/05/17 20:59 Blood Pressure 150/94 03/05/17 20:59 O2 Sat by Pulse Oximetry 98 03/05/17 20:59 Oxygen Delivery Oxygen Delivery Room Air Chest Pain - Lab Data Lab results reviewed: Yes I reviewed the patient's lab results. Result diagrams: 03/05/17 19:53 03/05/17 19:53 Lab Results 03/05/17 03/05/17 03/05/17 Range/Units 19:53 19:53 19:53 WBC 4.8 (4.3-11.1) K/mcL RBC 3.44 L (4.19-5.50) M/mcL Hgb 10.7 L (12.9-16.9) g/dL Hct 31.0 L (37.5-50.1) % MCV 90.1 (83.0-100.0) fL MCH 31.1 (28.0-33.3) pg MCHC 34.5 (31.6-35.5) g/dL RDW 13.0 (11.5-14.5) % Plt Count 127 L (140-400) K/mcL MPV 10.5 (9.4-12.4) fL Immature Gran % 0.4 (0-4) % Seg Neutrophils % 73.0 % Lymphocytes % 16.7 % Monocytes % 8.4 % Eosinophils % 1.3 % Basophils % 0.2 % Neutrophils # 3.5 (1.6-8.9) K/mcL Lymphocytes # 0.8 (0.6-4.6) K/mcL Monocytes # 0.4 (0.0-1.3) K/mcL Eosinophils # 0.1 (0.0-0.6) K/mcL Basophils # 0.0 (0.0-0.2) K/mcL PT (9.4-12.1) Seconds INR APTT (26.0-36.0) Seconds Sodium 137 (136-145) mEq/L Potassium 4.3 (3.5-4.5) mEq/L Chloride 107 (98-109) mEq/L Carbon Dioxide 25 (19-29) mEq/L BUN 27 H (8-26) mg/dL Creatinine 1.49 H (0.72-1.25) mg/dL Est GFR ( Amer) > 60 (> 60) Est GFR (Non-Af Amer) 51 L (> 60) BUN/Creatinine Ratio 18 (6-26) Glucose 147 H (70-99) mg/dL Calculated Osmolality 292 (280-300) Calcium 8.7 (8.6-10.8) mg/dL Troponin I 0.33 H* (0-0.03) ng/mL B-Natriuretic Peptide (0-100) pg/mL 03/05/17 03/05/17 Range/Units 19:53 19:53 WBC (4.3-11.1) K/mcL RBC (4.19-5.50) M/mcL Hgb (12.9-16.9) g/dL Hct (37.5-50.1) % MCV (83.0-100.0) fL MCH (28.0-33.3) pg MCHC (31.6-35.5) g/dL RDW (11.5-14.5) % Plt Count (140-400) K/mcL MPV (9.4-12.4) fL Immature Gran % (0-4) % Seg Neutrophils % % Lymphocytes % % Monocytes % % Eosinophils % % Basophils % % Neutrophils # (1.6-8.9) K/mcL Lymphocytes # (0.6-4.6) K/mcL Monocytes # (0.0-1.3) K/mcL Eosinophils # (0.0-0.6) K/mcL Basophils # (0.0-0.2) K/mcL PT 12.5 H (9.4-12.1) Seconds INR 1.2 APTT 32.1 (26.0-36.0) Seconds Sodium (136-145) mEq/L Potassium (3.5-4.5) mEq/L Chloride (98-109) mEq/L Carbon Dioxide (19-29) mEq/L BUN (8-26) mg/dL Creatinine (0.72-1.25) mg/dL Est GFR ( Amer) (> 60) Est GFR (Non-Af Amer) (> 60) BUN/Creatinine Ratio (6-26) Glucose (70-99) mg/dL Calculated Osmolality (280-300) Calcium (8.6-10.8) mg/dL Troponin I (0-0.03) ng/mL B-Natriuretic Peptide 153 H (0-100) pg/mL - Radiology Data Radiology results reviewed: Yes I reviewed the patient's radiology results. Chest X-Ray 03/05/17 19:42 IMPRESSION: No acute cardiopulmonary process D/ / Blayne Dickey MD / Blayne Dickey MD Interpreting Provider: Blayne Dickey MD - EKG Data EKG attestation: Yes I reviewed and interpreted this EKG. EKG shows normal: sinus rhythm Rate: normal Rhythm: NSR Interpretation: no acute changes Heart Score - Score History: Moderately Suspicious EKG: Non Specific repolarisation Disturbance Age: Less than 45 Risk Factors: Equal/Greater than 3 risk factor or history of atherosclerotic disease Troponin: 1-3x normal limit HEART Score Total: 5 Critical Care Time Critical Care Time: Yes Total Critical Care Time: 30 Attestation: The high probability of a clinically significant, sudden or life threatening deterioration of the [cardiovascular] system(s) required my full and direct attention, intervention and personal management. The aggregate critical care time was [30] minutes. This time is in addition to time spent performing reported procedures but includes the following: [x] Data Review and interpretation [x] Patient assessment and monitoring of vital signs [x] Documentation [x] Medication orders and management
[2017-03-05 20:06] LABS: Basophils % 0.2 %; Eosinophils # 0.1 K/mcL (0.0-0.6); Eosinophils % 1.3 %; Hemoglobin 10.7 g/dL (12.9-16.9); Immature Granulocytes % 0.4 % (0-4); Lymphocytes # 0.8 K/mcL (0.6-4.6); Lymphocytes % 16.7 %; Mean Corpuscular HGB Conc 34.5 g/dL (31.6-35.5); Mean Corpuscular Hemoglobin 31.1 pg (28.0-33.3); Mean Corpuscular Volume 90.1 fL (83.0-100.0); Mean Platelet Volume 10.5 fL (9.4-12.4); Monocytes # 0.4 K/mcL (0.0-1.3); Monocytes % 8.4 %; Neutrophils # 3.5 K/mcL (1.6-8.9); Platelet Count 127 K/mcL (140-400); Red Blood Count 3.44 M/mcL (4.19-5.50)
[2017-03-05 20:23] LABS: BUN/Creatinine Ratio 18 (6-26); Blood Urea Nitrogen 27 mg/dL (8-26); Calcium 8.7 mg/dL (8.6-10.8); Carbon Dioxide 25 mEq/L (19-29); Chloride 107 mEq/L (98-109); Glucose 147 mg/dL (70-99); Osmolality,Calculated 292 (280-300); Potassium 4.3 mEq/L (3.5-4.5); Sodium 137 mEq/L (136-145); eGFR For African Americans > 60 (> 60); eGFR For Non-African Americans 51 (> 60)
[2017-03-05] MEDS ORDERED: *HR* Heparin 5,000 UNIT/ML VIAL IVP ONE (21:02)
[2017-03-05] MEDS ORDERED: *HR* Heparin 5,000 UNIT/ML VIAL IVP PRN ×2 (21:15)
[2017-03-05] MEDS ORDERED: Heparin 25,000 UNIT/500 ML D5W 25,000 UNIT/500 ML MLS IVC SCH (21:15)
[2017-03-05 21:32] LABS: INR 1.2; Prothrombin Time 12.5 Seconds (9.4-12.1)
[2017-03-05 21:34] LABS: Activated Partial Thrombo Time 32.1 Seconds (26.0-36.0)
[2017-03-05] MEDS ORDERED: Nitroglycerin 1 INCH/GM PACKET TP ONE (22:15)
[2017-03-05] MEDS ORDERED: Nitroglycerin 25 MG/250 ML INFUS..BTL IVC SCH (23:45)
[2017-03-06] MEDS ORDERED: 0.9 % Sodium Chloride 1,000 ML IVC SCH (01:15)
--- NOTE | 2017-03-06 01:19 | Internal Med History&Physical ---
Date of Encounter: 03/06/17 Time of Encounter: 01:16 Assessment and Plan (1) NSTEMI (non-ST elevated myocardial infarction) Current visit: Yes Status: Acute Patient started on heparin drip, nitroglycerin drip. Repeat EKG because of continuous pain shows no ST segment shifts. Cardiology consultation. Serial troponin. Continuous telemetry monitoring. (2) Diabetes mellitus type 2 in nonobese Current visit: Yes Status: Acute Sliding scale insulin for now as he is NPO because of continuous pain (3) Hypertension Current visit: No Status: Chronic Continue home blood pressure medications. Nitroglycerin drip Qualifiers: Hypertension type: essential hypertension Qualified Code(s): I10 - Essential (primary) hypertension (4) TROY (acute kidney injury) Current visit: Yes Status: Acute Hydrate. Hold nephrotoxic drugs. Internal Medicine - H&P: HPI Chief complaint: chest pain History of present illness: Mr. Hi is a 46 year old male with multiple medical problems including coronary artery disease status posts prior PCI most recent was in January 2016 where he had spent the RCA and diagonal repeat Kaylee May 2016 showed patent stents, presents emergency room today with a multitude of complaints. Patient has been feeling weak lethargic lightheaded in addition started having chest [place] 6 PM. Pain is in the retrosternal area. Pain has been on and off. He has been giving a nitrile paste in the emergency room without improvement in his pain. Troponin was 0.33. Cardiology service were notified and recommended to start heparin drip. Patient also having pain during my interview. Nitroglycerin drip was initiated. No hematemesis melena or hematochezia. compliant with ASA and plavix Past Med Surg Social Fam HX - Past Medical History Medical history: coronary artery disease, diabetes, hepatitis Psychiatric history: depression - Past Surgical History Surgical History: angioplasty/stent, orthopedic, other - Social History Smoking Status: Current every day smoker Packs per day: 1 Smokeless Tobacco Status: No Alcohol use: none Drug use: none - Family History Mother Family Member Ethnicity: Non- Living Status: Still Living Hx Family Cardiac Disorders: Yes (HTN, HLD) Hx Family Respiratory Disorders: No Hx Family Cancer: No Hx Family GI Disorders: Yes (Irritable bowel syndrome) Hx Family Endocrine Disorder: Yes Hx Family Neuromuscular Disorders: No Hx Family Neurologic Disorders: No Hx Family HEENT Disorders: No Hx Family Autoimmune Disorders: No Father Hx Family Cardiac Disorders: Yes (CAD s/p CABG) Internal Medicine - H&P: Meds Aspirin [Adult Low Dose Aspirin EC] 81 mg PO DAILY 12/14/15 [History] Clopidogrel [Plavix] 75 mg PO DAILY 12/14/15 [History] Metformin HCl [Metformin HCl ER] 1,000 mg PO DAILY 12/14/15 [History] Metoprolol Succinate 50 mg PO DAILY 12/14/15 [History] traZODone [TraZODone] 100 mg PO HS 12/14/15 [History] Baclofen 20 mg PO TID 05/16/16 [History] Pantoprazole Sodium [Protonix] 40 mg PO DAILY 05/16/16 [History] Gabapentin [Neurontin] 800 mg PO TID 01/04/17 [History] Lisinopril-HCTZ 20-12.5 [Prinzide 20-12.5] 1 tab PO BID 01/04/17 [History] Nitroglycerin [Nitrostat] 0.4 mg SL AD PRN 01/04/17 [History] Albuterol Sulfate [Albuterol Inhaler] 2 puff IH Q4HR PRN #1 hfa.aer.ad 01/05/17 [Rx] Isosorbide MONOnitrate (24 HR) [Imdur] 60 mg PO DAILY #30 tab.er.24h 01/05/17 [ Rx] Furosemide [Lasix] 40 mg PO DAILY 03/05/17 [History] Insulin ASPART [Novolog Flexpen] 0 unit SQ TID 03/05/17 [History] Insulin Glargine,Hum.rec.anlog [Lantus Solostar] 60 unit SQ BID 03/05/17 [ History] Potassium Chloride [Klor-Con 10] 10 meq PO DAILY 03/05/17 [History] Allergies morphine Adverse Reaction (Verified 03/05/17 19:36) Agitated All Systems PM: A 10-system review of systems was performed and is negative for pertinent findings except as documented above in the HPI. Review of systems: 10 point review of systems is negative except for HPI. - Constitutional Additional comments: Gen.: patient is alert oriented times 3 not in distress. Cardiac: normal S1 S2 no additional sounds or murmurs chest: fair air entry. no active wheezing. No crackles or bronchial breathing. abdomen: soft nontender nondistended normal bowel sounds neuro: no focal deficit - Constitutional Vitals: Temp Pulse Resp BP Pulse Ox 97.6 F 74 19 153/93 96 03/05/17 23:48 03/05/17 23:48 03/05/17 23:48 03/06/17 01:11 03/05/17 23:48 Internal Med - H&P Results - Labs CBC & Chem 7: 03/05/17 19:53 03/05/17 19:53
[2017-03-06 04:45] LABS: Basophils % 0.2 %; Eosinophils # 0.1 K/mcL (0.0-0.6); Eosinophils % 2.2 %; Hematocrit 30.5 % (37.5-50.1); Hemoglobin 10.6 g/dL (12.9-16.9); Immature Granulocytes % 0.2 % (0-4); Lymphocytes # 1.1 K/mcL (0.6-4.6); Lymphocytes % 27.2 %; Mean Corpuscular HGB Conc 34.8 g/dL (31.6-35.5); Mean Corpuscular Hemoglobin 31.2 pg (28.0-33.3); Mean Corpuscular Volume 89.7 fL (83.0-100.0); Mean Platelet Volume 11.8 fL (9.4-12.4); Monocytes # 0.3 K/mcL (0.0-1.3); Monocytes % 8.1 %; Neutrophils # 2.5 K/mcL (1.6-8.9); Platelet Count 119 K/mcL (140-400); Red Cell Distribution Width 13.1 % (11.5-14.5); Segmented Neutrophils % 62.1 %
[2017-03-06 05:02] LABS: Albumin 2.4 g/dL (3.5-5.0); Albumin/Globulin Ratio 0.6 (1.1-2.2); BUN/Creatinine Ratio 19 (6-26); Bilirubin,Direct 0.2 mg/dL (0.0-0.5); Bilirubin,Indirect 0.1 mg/dL (0.0-1.2); Bilirubin,Total 0.3 mg/dL (0.2-1.2); Blood Urea Nitrogen 23 mg/dL (8-26); Calcium 8.4 mg/dL (8.6-10.8); Carbon Dioxide 24 mEq/L (19-29); Chloride 108 mEq/L (98-109); Glucose 131 mg/dL (70-99); Magnesium 1.5 mg/dL (1.6-2.6); Osmolality,Calculated 291 (280-300); Potassium 4.1 mEq/L (3.5-4.5); Sodium 138 mEq/L (136-145); Total Protein 6.4 g/dL (6.0-8.3); eGFR For African Americans > 60 (> 60); eGFR For Non-African Americans > 60 (> 60)
[2017-03-06] MEDS ORDERED: Acetaminophen 325 MG TABLET PO ONE (06:24)
[2017-03-06] MEDS: Gabapentin 300 MG CAPSULE PO SCH ×3 (08:21→21:53)
[2017-03-06] MEDS: Aspirin Enteric Coated 81 MG Tablet PO SCH (08:22)
[2017-03-06] MEDS: Insulin LISPRO 300 UNITS/3 ML VIAL SQ SCH ×3 (08:22→17:41)
[2017-03-06] MEDS: Metoprolol XL (24 HR) Succ 50 MG TAB.ER.24H PO SCH (08:22)
--- NOTE | 2017-03-06 09:31 | Cardiology Consult Note ---
Date of Encounter: 03/06/17 Time of Encounter: 08:30 Assessment and Plan (1) NSTEMI (non-ST elevated myocardial infarction) Current Visit: Yes Status: Acute Per cardiology: -KNown CAD with multiple PCIs. LAst cath 05/2016 with left main 15% stenosis, 15 % proximal LAD in stent, 30% mid LAD in stent, diagonal 1 with patent stent, 30 % proximal circumflex, 25% proximal RCA, 30% distal RCA, RCA with patent stents from 05/16/16. -Patient presents with chest pain that occured at rest. States similar to previous [place]. -Troponin 0.33, 0.36. Of note, at the time of last stent 05/16/16 troponins 0.37- 0.42. -On asa, plavix, and beta lula. Denies missed asa or plavix doses. On statin at home. AST and ALT normal. Lipid panel 12/2016, see above. -On heparin drip. On nitro drip at 10mcg/min. -Currently chest pain free. -Stress 12/2016 with fixed perfusion defect noted in basal inferoseptum, basal mid inferior wall, and basal mid inferolateral wall. -Echo 05/16/16 with LVEF 40-45%. Mild to moderate septal hypertrophy, mildly dilated right atrium, borderline dilated aortic root measuring 4cm, valvular function not assessed. Patient was to have repeat echo as outpatient. -Will restart home statin dose. -Recommend LHC. Risk versus benefits of LHC explained to patient. All questions answered. Patient agreeable for LHC. Discussed and reviewed with . -Will order echocardiogram. -Further recommendations pending LHC and echo. -Will order cardiac rehab phase 1. (2) TROY (acute kidney injury) Current Visit: Yes Status: Acute Per cardiology: -Creatinine 1.49 on admission. DOwn to 1.19 today. -Baseline 0.6-0.9. -Patient reports poor oral intake prior to hospitalization. -Management per primary service. (3) Hypertension Current Visit: No Status: Chronic Per cardiology: -KNown hypertension. -ON beta lula. -BPs 130-150s. -Can consider further titration of anti-hypertensive medication. Qualifiers: Hypertension type: essential hypertension Qualified Code(s): I10 - Essential (primary) hypertension (4) Hyperlipidemia Current Visit: No Status: Chronic Per cardiology: -Known history of hyperlipidemia. -On statin at home. -AST and ALT within normal limits. -Lipid panel 12/2016 triglycerides 170, cholesterol 196. LDL 138. HDL 24. -Will restart home statin. Qualifiers: Hyperlipidemia type: unspecified Qualified Code(s): E78.5 - Hyperlipidemia , unspecified (5) Tobacco abuse Current Visit: No Status: Chronic Per cardiology: -Current smoker. -Reports smoking about 1pack per day for 20 years. -I spent 3-5 minutes reviewing smoking cessation education with patient. (6) Hypomagnesemia Current Visit: Yes Status: Acute Per cardiology: -Mg noted to be 1.5. -Will give IV replacement of magnesium. -Will re-check Mg level. Discussion w patient/family: The assessment and plan as outlined above was discussed with the patient who expressed understanding and agreement. All questions were answered. Thank you for involving us in the care of your patient. Please call with any questions. Discussed and reviewed with . History of Present Illness Consult date: 03/06/17 Requesting physician: Ever Torres Consult reason: NSTEMI Chief complaint: chest pain, dizziness History of present illness: Mr. Hi is a 46 year old male with a relevant past medical history of CAD with multiple PCIs, [place], HTN, hyperlipidemia, DM, cirrhosis, hepatitis C, current smoking about 1 pack per day for 20 years. Last cath 05/2016. Patient reported to outside facility with complaints of dizziness and chest pain. Patient signed out AMA and came to [facility]. Patient states chest pain started at rest. Patient denies aggervating or alleviating factors. Patient states pain is similar to previous MIs. Patient reports pain was sharp and stabbing. Patient currently on nitro drip at 10mcg/min and is chest pain free upon assessment. Past Med Surg Social Fam HX - Past Medical History Attestation: Yes The following information was validated with the patient. Source: patient, old records reviewed Medical history: coronary artery disease, diabetes, hepatitis Psychiatric history: depression - Past Surgical History Surgical History: angioplasty/stent, orthopedic, other - Social History Smoking Status: Current every day smoker Packs per day: 1 Smokeless Tobacco Status: No Alcohol use: none Drug use: none - Family History Mother Family Member Ethnicity: Non- Living Status: Still Living Hx Family Cardiac Disorders: Yes (HTN, HLD) Hx Family Respiratory Disorders: No Hx Family Cancer: No Hx Family GI Disorders: Yes (Irritable bowel syndrome) Hx Family Endocrine Disorder: Yes Hx Family Neuromuscular Disorders: No Hx Family Neurologic Disorders: No Hx Family HEENT Disorders: No Hx Family Autoimmune Disorders: No Father Hx Family Cardiac Disorders: Yes (CAD s/p CABG) Medications and Allergies Aspirin [Adult Low Dose Aspirin EC] 81 mg PO DAILY 12/14/15 [History] Clopidogrel [Plavix] 75 mg PO DAILY 12/14/15 [History] Metformin HCl [Metformin HCl ER] 1,000 mg PO DAILY 12/14/15 [History] Metoprolol Succinate 50 mg PO DAILY 12/14/15 [History] traZODone [TraZODone] 100 mg PO HS 12/14/15 [History] Baclofen 20 mg PO TID 05/16/16 [History] Pantoprazole Sodium [Protonix] 40 mg PO DAILY 05/16/16 [History] Gabapentin [Neurontin] 800 mg PO TID 01/04/17 [History] Lisinopril-HCTZ 20-12.5 [Prinzide 20-12.5] 1 tab PO BID 01/04/17 [History] Nitroglycerin [Nitrostat] 0.4 mg SL AD PRN 01/04/17 [History] Albuterol Sulfate [Albuterol Inhaler] 2 puff IH Q4HR PRN #1 hfa.aer.ad 01/05/17 [Rx] Isosorbide MONOnitrate (24 HR) [Imdur] 60 mg PO DAILY #30 tab.er.24h 01/05/17 [ Rx] Furosemide [Lasix] 40 mg PO DAILY 03/05/17 [History] Insulin ASPART [Novolog Flexpen] 0 unit SQ TID 03/05/17 [History] Insulin Glargine,Hum.rec.anlog [Lantus Solostar] 60 unit SQ BID 03/05/17 [ History] Potassium Chloride [Klor-Con 10] 10 meq PO DAILY 03/05/17 [History] Allergies morphine Adverse Reaction (Verified 03/05/17 19:36) Agitated All Systems Review: A 10-system review of systems was performed and is negative for pertinent findings except as documented above in the HPI. - Cardiovascular Cardiovascular: as per HPI, chest pain at rest Physical Examination Vital Signs, Last 4 Hours Temp Pulse Resp BP 03/06/17 06:44 98.4 F 66 18 149/98 General: Conversant, No Apparent Distress HEENT: Atraumatic, Normocephaly Neck: No JVD, Normal carotid pulses Cardiac: Reg Rate and Rhythm, Normal S1 and S2, No Murmur Lungs: Normal Breath Sounds, No Wheeze, Rales, Rhonchi Neuro: Alert and responsive, No focal deficits noted Abdomen: Soft, Non-Tender Skin: No rashes noted on visualized skin (Left upper back lancing site noted. ) Musculoskeletal: No Chest Wall Tenderness Extremities: No Cyanosis, No Edema, Normal Pulses Results 03/06/17 03:31 03/06/17 03:31 Lab Results Impressions Chest X-Ray 03/05/17 19:42 IMPRESSION: No acute cardiopulmonary process. D/ / 03/05/2017 20:25:56 Blayne Dickey MD / [email or web address] Interpreting Provider: Blayne Dickey MD Active Medications Albuterol Sulfate (Albuterol Inhaler) 2 puff IH Q4HR PRN PRN Reason: Shortness Of Breath Stop: 09/05/17 01:10 Aspirin (Aspirin Ec) 81 mg PO DAILY [facility] Stop: 09/05/17 09:01 Last Admin: 03/06/17 08:22 Dose: 81 mg Clopidogrel Bisulfate (Plavix) 75 mg PO DAILY [facility] Stop: 09/05/17 09:01 Last Admin: 03/06/17 08:22 Dose: 75 mg Gabapentin (Neurontin) 300 mg PO TID [facility] Stop: 09/05/17 09:01 Last Admin: 03/06/17 08:21 Dose: 300 mg Heparin Sodium (Porcine) (Heparin) 4,000 unit IVP Q6HR PRN PRN Reason: SEE COMMENTS Stop: 09/04/17 21:16 Heparin Sodium (Porcine) (Heparin) 2,000 unit IVP Q6H PRN PRN Reason: SEE COMMENTS Stop: 09/04/17 21:16 Last Admin: 03/06/17 05:06 Dose: 2,000 unit Heparin Sodium/Dextrose (Heparin 25,000 Unit/500 Ml D5w) 25,000 unit in 500 mls @ 19.994 mls/hr IVC .Q24H [facility]; 11.36 UNIT/KG/HR PRN Reason: Protocol Stop: 09/04/17 21:16 Last Titration: 03/06/17 05:09 Dose: 13.06 unit/kg/hr, 23 mls/hr Nitroglycerin (Nitroglycerin) 25 mg in 250 mls @ 3 mls/hr IVC .Q24H [facility]; 5 MCG/ MIN PRN Reason: Protocol Stop: 09/04/17 23:46 Last Titration: 03/06/17 08:24 Dose: 10 mcg/min, 6 mls/hr Sodium Chloride (0.9 % Sodium Chloride) 1,000 mls @ 100 mls/hr IVC .Q10H [facility] Stop: 09/05/17 01:16 Last Admin: 03/06/17 01:51 Dose: 100 mls/hr Insulin Human Lispro (Humalog) 0 units SQ TIDAC [facility] PRN Reason: Protocol Stop: 09/05/17 07:31 Last Admin: 03/06/17 08:22 Dose: Not Given Metoprolol Succinate (Toprol Xl) 50 mg PO DAILY [facility] Stop: 09/05/17 09:01 Last Admin: 03/06/17 08:22 Dose: 50 mg Omeprazole (Prilosec) 20 mg PO DAILY@0730 [facility] Stop: 09/05/17 07:31 Last Admin: 03/06/17 08:22 Dose: 20 mg Trazodone HCl (Trazodone) 100 mg PO HS [facility] Stop: 09/05/17 21:01 Laboratory Tests 01/04/17 01/05/17 03/05/17 12:53 01:27 19:53 Hgb Plt Count 113 L Creatinine 0.98 1.49 H Magnesium AST ALT Troponin I Triglycerides 170 H Cholesterol 196 LDL Cholesterol, Calc 138 H HDL Cholesterol 24 L 03/05/17 03/06/17 03/06/17 19:53 03:31 03:31 Hgb 10.6 L Plt Count 119 L Creatinine 1.19 Magnesium 1.5 L AST ALT Troponin I 0.33 H* Triglycerides Cholesterol LDL Cholesterol, Calc HDL Cholesterol 03/06/17 03/06/17 03:31 03:31 Hgb Plt Count Creatinine Magnesium AST 21 ALT 24 Troponin I 0.36 H* Triglycerides Cholesterol LDL Cholesterol, Calc HDL Cholesterol - Imaging and Cardiology Chest Xray: report reviewed Stress Test: report reviewed Echo: report reviewed Cardiac cath: pending, report reviewed - EKG Interpretation EKG results cardiology: personally reviewed (ECG with sinus rhythm, HR 72. ECG similar to previous.), other (Telemetry reviewed with average HR 70, Rare PVCs, and PACS noted.) Consult Discharge Plan - Plan Referrals: Richard Monte DO [Primary Care Provider] -
[2017-03-06] MEDS ORDERED: Magnesium Sulfate 2 GM in D5% in Water 100 ML IVPB ONE (09:53)
--- NOTE | 2017-03-06 10:13 | Pre-Sedation Evaluation ---
Pre-sedation evaluation - Pre-sedation checklist Date of procedure: 03/06/17 Procedure: Left Heart Cath Recent Vitals: Last Vital Signs Temp 98.4 F 03/06/17 06:44 Pulse 66 03/06/17 06:44 Resp 18 03/06/17 06:44 BP 149/98 03/06/17 06:44 Pulse Ox 94 03/06/17 03:50 H&P (including ROS) documented in medical record: No (Positive trops and new admission) Previous reaction to sedatives/anesthetics: No Dietary Status: No solid food in preceding 4 hrs and no liquid in preceding 2 hrs Dentition: No loose teeth or bridges ASA Classification *see protocol: CLASS II-Mild systemic disease Plan of Care: Pt appropriate candidate for procedure/moderate/conscious sedation , Risks/benefits of procedure/sedation discussed w/ patient/family
[2017-03-06] MEDS ORDERED: *HR* Heparin 10,000 UNIT/10 ML VIAL ONE (10:19)
[2017-03-06] MEDS ORDERED: 0.9 % Sodium Chloride 1,000 ML ONE ×2 (10:19→10:52)
[2017-03-06] MEDS ORDERED: Verapamil 5 MG/2 ML VIAL ONE (10:19)
[2017-03-06] MEDS ORDERED: Heparin 1,000 UNITS/500 mL NS 500 ML ONE (10:19)
[2017-03-06] MEDS ORDERED: Nitroglycerin 1,000 MCG/10 ML VIAL IV ONE (10:20)
[2017-03-06] MEDS ORDERED: *HR* Midazolam HCl 2 MG/2 ML VIAL ONE (10:52)
[2017-03-06] MEDS ORDERED: *HR* FentaNYL (PF) 100 MCG/2 ML VIAL ONE (10:52)
--- NOTE | 2017-03-06 11:50 | Event Note ---
<Arvind Bobo - Last Filed: 03/06/17 15:09> Date of Encounter: 03/06/17 Time of Encounter: 10:20 Patient presented to the ED with chest pain, previously seen at outside ER and found to have elevate cardiac enzymes. He left against medical advice as he wanted to be transferred here. Patient presented to [facility] stating this was similar to previous PR. Hx of 6 cardiac stents placed. Troponins trended at 0.33>0.36>0.36 Cardiology consulted and planning for LHC today and possible echo. Patient on heparin drip, ASA, statin, plavix, nitro, and magnesium. Denies chest pain currently. No respiratory distress. Update: Patient underwent LHC; Patent LAD, Diagonal, RCA stents. EF 50-55%. Jailed PDA branch with LUIS E 3 flow and focal spontaneous dissection. No good targets for revascularization. Cardiology recommending overnight observation and medical management with initiation of Imdur and Norvasc. <Harvey De Dios - Last Filed: 03/06/17 17:58> Date of Encounter: 03/06/17 I examined this patient and my medical decision-making was reviewed with the [employer] MECHANIC/PA/Advanced Practice Nurse/Resident Physician. I agree with the documented findings, disposition and treatment plan as described except to the extent set forth below.
--- NOTE | 2017-03-06 12:35 | Invasive Diagnostic Lab Proc ---
Name: Bartolo Hi Date of Study: 03/06/2017 Date: 1970 Ht: 72.0in Medical Record#: [id number] Age: 46 Wt: 194.01lb Gender: Male BSA: 2.1 Order #: [id number] BMI: 26.28 Physicians Procedure Physician: Aftab Kaminski MD, [facility] Referring MD: Referring MD: Staff Name Position Time In Cheri Hobbs RT (R) Scrub 10:58 AM Gayla Gillespie RN Digital Strategy Director 10:58 AM Octavia Cleaning RN Monitor 10:58 AM Indications Indication Non-Stemi Pre-Procedure Checklist Informed consent is complete signed and on chart. H\\T\\P is on chart. ID band is on and ID verified with patient. Patient NPO for procedure The procedure was described for the patient and questions were answered. Blood Pressure: 149/98 ECG is on chart. Rhythm: NSR Plan of Care Patient will tolerate the procedure without complications. Adequate level of comfort will be maintained. Hemodynamics will remain stable Patient will recover from procedure without complications. Respiratory function will be maintained. Cardiac rhythm will remain stable. Patient temperature will be maintained. Patient and/or family have verbalized understanding of the procedure. Patient Education Chief Complaint/Reason for Test: Cardiac Cath Developmental Category: Adult (18-64 years) Developmentally Appropriate for Age: Yes Learning Barriers: None Education Needs: Procedure Education Method: Verbal Information Taught: Cardiac Cath Educational Evaluation: Able to repeat information Intravenous Access Time IV Size Location DC'd Fluid/Drip Rate Units RN 10:24 AM 18g 1 1/4" Patent On Arrival Rt Arm 10:25 AM 20g 1 1/4" Patent On Arrival Lt Arm 0.9NaCl 50 ml/hr Gayla Gillespie RN Allergies morphine Vital Signs Time BP (mmHg) HR (bpm) O2 Sat. RR (bpm) LOC 10:25 AM 149 / 98 66 94 % 18 5 = Fully awake and oriented or at pre-proc level 11:01 AM / % 5 = Fully awake and oriented or at pre-proc level 11:01 AM / % 4 = Oriented but drowsy 11:16 AM / % 4 = Oriented but drowsy 11:32 AM / % 5 = Fully awake and oriented or at pre-proc level 11:47 AM / % 5 = Fully awake and oriented or at pre-proc level 12:02 PM / % 5 = Fully awake and oriented or at pre-proc level 11:02 AM 173 / 99 63 99 % 9 11:06 AM 164 / 93 64 99 % 8 11:11 AM 159 / 94 63 99 % 14 11:16 AM 163 / 95 61 99 % 13 11:21 AM 162 / 92 61 99 % 11 11:26 AM 164 / 97 63 100 % 21 11:31 AM 162 / 97 63 99 % 22 11:36 AM 151 / 92 63 99 % 15 11:42 AM 166 / 99 70 99 % 21 11:46 AM 167 / 102 68 99 % 12 10:56 AM 222 / 103 65 99 % 15 10:58 AM 213 / 107 65 100 % 11:00 AM 223 / 157 64 100 % 18 11:51 AM 168 / 103 68 100 % 6 11:56 AM 160 / 103 69 98 % 12:01 PM 158 / 94 65 98 % 13 12:06 PM 163 / 100 64 99 % 11 12:11 PM 162 / 102 65 99 % 17 12:16 PM 169 / 100 64 99 % 17 Procedural Medications Time Medication Dose Units Method Given By 11:01 AM Oxygen 2 L/min nasal cannula Gayla Gillespie RN 11:01 AM Versed 2 mg Intravenous Gayla Gillespie RN 11:01 AM Fentanyl 50 mcg Intravenous Gayla Gillespie RN 11:15 AM Lidocaine 2% 0.5 ml Subcutaneous Aftab Kaminski MD, [facility] 11:32 AM Lidocaine 2% 19 ml Subcutaneous Aftab Kaminski MD, [facility] ASA Classification: CLASS II- Mild systemic disease (i.e. well-controlled diabetes, hypertension, asthma, cigarette smoking) Manish Score Preprocedure Postprocedure Activity 2- Moves 4 extremities sustained head lift Activity 2- Moves 4 extremities sustained head lift Circulation 2- SBP +/= 20 points of pre-anesthetic level Circulation 2- SBP +/= 20 points of pre-anesthetic level Consciousness 2- Awake and alert oriented x 3 Consciousness 2- Awake and alert oriented x 3 O2 Saturation 2- Able to maintain O2 satruation of 92% on room air O2 Saturation 2- Able to maintain O2 satruation of 92% on room air Respiratory 2- Able to deep breathe and cough well Respiratory 2- Able to deep breathe and cough well Total Score 10 Total Score 10 Contrast Agent: Isovue Diagnostic Contrast: 61 ml Total Contrast: 61 ml Fluoro Dose: 157 mGy Activated Clotting Time Time Seconds to Clot 11:48 AM 153 Procedure Log Time Note Enter By 10:26 AM CathStat 10:26 AM Case Start 10:54 AM Vitals capture started with the following parameters, Patient=Adult, Interval=5 min, Initial Rfayiroa=427 mmHg, Deflation Rate=5 mmHg, Cuff placed on Left Arm 10:56 AM HR=65 bpm, QXPR=332/103 mmhg, SpO2=99.0 %, Resp=15 B/min, Comment=NSR 10:57 AM NIBP STAT measurement started. 10:58 AM Pt arrived to dental laboratory manager 2 at 10:58 pvannoy 10:58 AM HR=65 bpm, UZMW=988/107 mmhg, AeD4=535.0 %, Comment=NSR 10:58 AM Cheri Hobbs RT (R) Position: Scrub Time in: 10:58 pvannoy 10:58 AM Gayla Gillespie RN Position: Digital Strategy Director Time in: 10:58 pvannoy 10:59 AM Octavia Cleaning RN Position: Monitor Time in: 10:58 pvannoy 10:59 AM Patient charges- Angio tray pack, Navilyst 3mm J, Pulse Oximetry and ACIST tubing and transducer pvannoy 10:59 AM Case Delayed No pvannoy 11:00 AM HR=64 bpm, MCLL=617/157 mmhg, YmB4=995.0 %, Resp=18 B/min, Comment=NSR 11:00 AM Hair removed from procedure site in procedure lab using clippers. Right wrist and right groin prepped with Chloraprep by Yola Manjarrez RT (R), safety strap applied then patient was draped. Skin intact. pvannoy 11:00 AM Physician arrived 11:00 pvannoy 11:00 AM ASA Class CLASS II- Mild systemic disease (i.e. well-controlled diabetes, hypertension, asthma, cigarette smoking) pvannoy 11:00 AM Meet and greet completed pvannoy 11:00 AM Sign in performed according to hospital policy. pvannoy 11:00 AM Procedure start 11:00 pvannoy 11:00 AM Vitals capture stopped. 11:01 AM Time: 11:01 Oxygen on at 2 L/min per nasal cannula by Gayla Gillespie RN pvannoy 11:01 AM Vitals capture started with the following parameters, Patient=Adult, Interval=5 min, Initial Iwdoekan=930 mmHg, Deflation Rate=5 mmHg, Cuff placed on Left Arm 11: AM Time: Versed 2 mg Intravenous Given by Gayla Gillespie RN [facility] : AM Time: : Fentanyl 50 mcg Intravenous Given by Gayla Gillespie RN [facility] : AM Time: :LOC: 5 = Fully awake and oriented or at [facility]proc [facility] 11: AM Time: : Patient comfortable and pain free: Yes pvann 11:02 AM HR=63 bpm, XJXB=713/99 mmhg, SpO2=99.0 %, Resp=9 B/min, Comment=NSR 11:06 AM HR=64 bpm, SHFL=109/93 mmhg, SpO2=99.0 %, Resp=8 B/min, Comment=NSR 11:10 AM Recorded ECG: HR=64 Condition=Condition 1 11:11 AM HR=63 bpm, XVRD=062/94 mmhg, SpO2=99.0 %, Resp=14 B/min, Comment=NSR 11:15 AM Time out performed according to hospital policy [facility] 11:16 AM Time: :15 0.5 ml Lidocaine 2% to right radial Subcutaneous Given by Aftab Kaminski MD, [facility] pvann 11:16 AM HR=61 bpm, YAZD=171/95 mmhg, SpO2=99.0 %, Resp=13 B/min, Comment=NSR 11:16 AM Time: :LOC: 4 = Oriented but drowsy [facility] 11:17 AM Time: : Patient comfortable and pain free: Yes pvann 11:21 AM HR=61 bpm, XSNF=755/92 mmhg, SpO2=99.0 %, Resp=11 B/min, Comment=NSR 11:22 AM Unsuccessful access attempt # 1 into the right Radial artery. Manual pressure applied to achieve hemostasis.. pvann 11:26 AM HR=63 bpm, BIKR=263/97 mmhg, JrD5=010.0 %, Resp=21 B/min, Comment=NSR 11:27 AM Ultrsound used for access pvann 11:31 AM HR=63 bpm, EKGA=441/97 mmhg, SpO2=99.0 %, Resp=22 B/min, Comment=NSR 11:32 AM Time: 11:16LOC: 4 = Oriented but drowsy pvannoy 11:32 AM Time: 11:17 Patient comfortable and pain free: Yes pvannoy 11:34 AM Time: 11:32 19 ml Lidocaine 2% to right groin Subcutaneous Given by Aftab Kaminski MD, [facility] pvannoy 11:35 AM Access obtained by percutaneous puncture. 6Fr 10cm Terumo Glidesheath sheath placed in right Femoral artery. [id number] pvannoy 11:35 AM 5Fr FL 4 catheter inserted over the wire [facility] pvannoy 11:35 AM Recorded Pressure: Ao, HR=62, Condition=Condition 1 (Aorta) Ao 121/77/97 11:36 AM LCA angiography performed in multiple views. pvannoy 11:36 AM HR=63 bpm, DAKJ=061/92 mmhg, SpO2=99.0 %, Resp=15 B/min, Comment=NSR 11:37 AM Catheter removed pvannoy 11:37 AM 5Fr FR 4 catheter inserted over the wire [facility] pvannoy 11:38 AM RCA angiography performed in multiple views. pvannoy 11:38 AM Recorded Pressure: Ao, HR=72, Condition=Condition 1 (Aorta) Ao 163/74/118 11:39 AM Catheter removed pvannoy 11:40 AM 5Fr Pigtail catheter inserted over the wire [facility] pvannoy 11:40 AM Catheter selectively placed in left ventricle pvannoy 11:41 AM Recorded Pressure: LV, HR=72, Condition=Condition 1 (Left Ventricle) LV 155/-2/10 11:41 AM Bolus angiogram of left Ventricle complete: 10 ml/sec for a total of 30 mls pvannoy 11:42 AM Recorded Pressure: LV, Ao, HR=70, Condition=Condition 1 (Left Ventricle) LV 148/-4/10, (Aorta) Ao ?/?/? 11:42 AM Recorded Pressure: LV, Ao, HR=71, Condition=Condition 1 (Left Ventricle) LV 147/-5/12, (Aorta) Ao 144/74/104 11:42 AM HR=70 bpm, GUWM=602/99 mmhg, SpO2=99.0 %, Resp=21 B/min, Comment=NSR 11:45 AM Recorded Pressure: Ao, HR=70, Condition=Condition 1 (Aorta) Ao 163/78/107 11:45 AM Catheter removed pvannoy 11:46 AM Bolus angiogram of right Femoral complete: 4 ml/sec for a total of 7 mls pvannoy 11:46 AM Coronary Dominance: right pvannoy 11:46 AM HR=68 bpm, MNAZ=173/102 mmhg, SpO2=99.0 %, Resp=12 B/min, Comment=NSR 11:47 AM Time: 11:32 Patient comfortable and pain free: Yes pvannoy 11:47 AM Time: 11:32LOC: 5 = Fully awake and oriented or at pre-proc level pvannoy 11:47 AM Procedure completed at 11:47 pvannoy 11:48 AM Sign out completed: Radiation Dose 157.08 mGy Fluoro Time: 1.2 Isovue 370 - 200ml contrast 61 ml given by Aftab Kaminski MD, FACC. Complications: NoneCardiac Rehab Consult needed: YesConfirmed administered medications: Yes pvannoy 11:48 AM At 11:48 the ACT was 153 seconds. pvannoy 11:49 AM Isovue 370 - 200ml,1 Bottle(s) used. pvannoy 11:49 AM Post ECG NSR pvannoy 11:49 AM Recorded ECG: HR=68 Condition=Condition 1 11:51 AM HR=68 bpm, IFRL=742/103 mmhg, FkI0=281.0 %, Resp=6 B/min, Comment=NSR 11:52 AM Pressure dressing applied to right wrist pvannoy 11:52 AM 11:52 Post Pulses Rt Radial 2+ pvannoy 11:53 AM Education needs Procedure and Plan of Care pvannoy 11:53 AM Education Methods Verbal pvannoy 11:53 AM Education evaluation Able to repeat information pvannoy 11:53 AM Site status No bleeding/hematoma - Rt Wrist as reported by Gayla Gillespie RN at 11:53 pvannoy 11:53 AM Complications: None pvannoy 11:53 AM Fluoro Time: 1.2 pvannoy 11:53 AM Isovue 370 - 200ml contrast 61 ml given by Aftab Kaminski MD, FACC. pvannoy 11:54 AM Radiation Dose 157.08 mGy pvannoy 11:55 AM Left Main Coronary Artery with 0% stenosis pvannoy 11:55 AM Proximal Left Anterior Descending Coronary Artery with 0% stenosis. If graft is supplying this territory, 0 % stenosis. pvannoy 11:55 AM Mid/Distal Left Anterior Descending Coronary Artery and diagonal branches with 20% stenosis. If graft is supplying this area, 0 % stenosis pvannoy 11:55 AM Circumflex, Obtuse Marginal, Left Posterior Descending, and Left Posterolateral Coronary Arteries with 20 % stenosis. If graft is supplying this area, 0 % stenosis pvannoy 11:56 AM Right Coronary, Right Posterior Descending Arteries with Right Posterolateral and Acute Marginal branches with 50 % stenosis. If graft is supplying this area, 0 % stenosis pvannoy 11:56 AM HR=69 bpm, DAHW=408/103 mmhg, SpO2=98.0 %, Comment=NSR 11:58 AM Arterial sheath pulled using manual compression and V Pad for 15 minutes by Cheri Hobbs (Laura) pvannoy 11:59 AM Post Blood Pressure 160/103 pvannoy 12:01 PM HR=65 bpm, JTBC=023/94 mmhg, SpO2=98.0 %, Resp=13 B/min, Comment=NSR 12:02 PM Time: 11:47LOC: 5 = Fully awake and oriented or at pre-proc level pvannoy 12:02 PM Time: 11:47 Patient comfortable and pain free: Yes pvannoy 12:06 PM HR=64 bpm, KAXK=740/100 mmhg, SpO2=99.0 %, Resp=11 B/min, Comment=NSR 12:11 PM HR=65 bpm, OJML=662/102 mmhg, SpO2=99.0 %, Resp=17 B/min, Comment=NSR 12:12 PM Lesion found in Mid LAD. Pre Stenosis: 20 Pre LUIS E Flow: 3: Complete and Brisk Flow/Perfusion pvannoy 12:12 PM Lesion found in Mid Circumflex. Pre Stenosis: 20 Pre LUIS E Flow: 3: Complete and Brisk Flow/Perfusion pvannoy 12:13 PM Lesion found in Distal RCA. Pre Stenosis: 50 Pre LUIS E Flow: 3: Complete and Brisk Flow/Perfusion pvannoy 12:16 PM HR=64 bpm, OVLN=672/100 mmhg, SpO2=99.0 %, Resp=17 B/min, Comment=NSR 12:17 PM Time: 12:02 Patient comfortable and pain free: Yes pvannoy 12:17 PM Time: 12:02LOC: 5 = Fully awake and oriented or at pre-proc level pvannoy 12:18 PM Site status No bleeding/hematoma - Rt Groin as reported by Cheri Hobbs RT (R) at 12:18 pvannoy 12:18 PM Opsite applied pvannoy 12:26 PM Report given to Ivet FIGUEROA Pt taken to Holding room Room #31. 12:26 pvannoy Complications Complication None Hemodynamics Pressures Site Systolic/A Wave Diastolic/V Wave Mean AO 121 77 97 AO 163 74 118 LV 155 -2 10 LV 148 -4 10 AO AO 163 78 107 LV 147 -5 12 AO 144 74 104 Post Procedure Information Blood Pressure: 160/103 mmHg Rhythm: NSR Closure Device Time Device Success/Fail 03/06/2017 11:57:00 AM Manual Compression Site Checks Time Location Status Staff Sheath In? Note 11:53 AM Rt Wrist No bleeding/hematoma Gayla Gillespie RN 12:18 PM Rt Groin No bleeding/hematoma Cheri Hobbs RT (R) Pulses Time Site Pre-Procedure Post-Procedure Note 03/06/2017 10:25:00 AM Bilateral DP \\T\\ PT 2+ 03/06/2017 10:25:00 AM Bilateral radial 2+ 11:52:00 AM Rt Radial 2+ Updated by Octavia Cleaning, [place] on 03/06/2017 12:27:11 PM electronically signed on 03/06/2017 12:28:49 PM with status of Final
--- NOTE | 2017-03-06 12:45 | Invasive Diagnostic Lab ---
Name: Bartolo Hi Date of Study: 03/06/2017 Date: 1970 Ht: 183.0 cm /72.0 in Medical Record#: [id number] Age: 46 Wt: 88. kg / 194.01 lb Account/Order#: [id number] Gender: Male BSA: 2.1 Order #: [id number] Fluoro Dose: 157 mGy BMI: 26.28 Procedure Physician: Aftab Kaminski MD, [facility] Referring MD: Referring MD: Indications: Non-Stemi Indications: Non-Stemi Impressions: There is mild-moderate three vessel coronary artery disease. Jailed PDA branch with focal dissection and LUIS E 3 flow Patent LAD, Diagonal, and RCA stents The left ventricle is normal and has low normal contractility EF 50-55% Recommendations: Optimal medical therapy of patient's disease. Aggressive risk factor modification Antianginal therapy - start Norvasc 5mg daily (also for HTN) and Imdur 30mg daily History/Risk Factors: CAD Hepatitis C TROY SOB prior PCI x 6 Diabetes Hypertension Dyslipidemia Current/Recent Smoker Previous PCI Procedure Access obtained in the right Femoral artery by percutaneous puncture Complications: None Contrast: Isovue 61ml Closure Device: Manual Compression Hemodynamics: Pressures Site Systolic/ A Wave Diastolic/ V Wave End Diastolic/ Mean HR AO 121 77 97 62 AO 163 74 118 72 LV 155 -2 10 72 LV 148 -4 10 70 AO 0 AO 163 78 107 70 LV 147 -5 12 73 AO 144 74 104 70 LV Ventriculography Ejection Method: LV Gram Ejection Fraction: 50-55% Wall Motion: FRAUSTO Anterobasal Normal Anterolateral Normal Apical: Normal Inferoapical Mild Hypokinesis Inferobasal Mild Hypokinesis Coronary Dominance: right Lesion Findings/Interventions * Left Main Coronary Artery The LMCA is angiographically free of disease. * Left Anterior Descending There is a 20% stenosis in the proximal and Mid LAD. There is a patent LAD and diagonal 1 stent. The lesion has a LUIS E flow of 3 and has no thrombus present. * Circumflex There is a 20% stenosis in the proximal Circumflex. The lesion has a LUIS E flow of 3 and has no thrombus present. * Right Coronary Artery The Mid-distal RCA has patent stents present from a previous procedure. There is a 40% stenosis in the Distal RCA, instent restenosis. The lesion has a LUIS E flow of 3 and has no thrombus present. There is a small jailed PDA branch with LUIS E 3 flow that has ostial 90% stenosis that has mildly worsened compared to 2 cardiac catheterizations last year. Appearance of spontaneous focal dissection in the proximal portion of this vessel. Updated by Octavia Cleaning RN on 03/06/2017 12:23:14 PM Aftab Kaminski MD, FACC electronically signed on 03/06/2017 12:41:20 PM with status of Final
--- NOTE | 2017-03-06 12:46 | Event Note ---
Date of Encounter: 03/06/17 Time of Encounter: 13:00 - Cardiology Event Note Prelim C Patent LAD, Diagonal, RCA stents. EF 50-55%. Jailed PDA branch with LUIS E 3 flow and focal spontaneous dissection. No good targets for revascularization. Started Imdur and Norvasc. Monitor overnight.
--- NOTE | 2017-03-06 13:02 | Electrocardiograph Report ---
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
[2017-03-06] MEDS ORDERED: Acetaminophen 325 MG TABLET PO PRN (13:30)
--- NOTE | 2017-03-06 14:11 | Electrocardiograph Report ---
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
[2017-03-06] MEDS ORDERED: *HR* Enoxaparin 100 MG/ML SYRINGE SQ ONE (16:00)
[2017-03-06] MEDS: Isosorbide MONOnitrate (24 HR) 30 MG TAB.ER.24H PO SCH (17:40)
[2017-03-06] MEDS: amLODIPine 5 MG TABLET PO SCH (17:40)
[2017-03-06] MEDS ORDERED: traZODone 50 MG TABLET PO SCH (21:00)
[2017-03-07 04:26] LABS: BUN/Creatinine Ratio 17 (6-26); Blood Urea Nitrogen 19 mg/dL (8-26); Calcium 8.5 mg/dL (8.6-10.8); Carbon Dioxide 26 mEq/L (19-29); Chloride 107 mEq/L (98-109); Glucose 219 mg/dL (70-99); Osmolality,Calculated 293 (280-300); Potassium 4.5 mEq/L (3.5-4.5); Sodium 137 mEq/L (136-145); eGFR For African Americans > 60 (> 60); eGFR For Non-African Americans > 60 (> 60)
[2017-03-07 07:15] VITALS: BP 162/103
[2017-03-07] MEDS ORDERED: Isosorbide MONOnitrate (24 HR) 30 MG TAB.ER.24H PO SCH (09:00)
[2017-03-07] MEDS ORDERED: amLODIPine 5 MG TABLET PO SCH (09:00)
[2017-03-07] MEDS: Insulin LISPRO 300 UNITS/3 ML VIAL SQ SCH ×2 (09:33→12:24)
[2017-03-07] MEDS: Aspirin Enteric Coated 81 MG Tablet PO SCH (09:39)
[2017-03-07] MEDS: Isosorbide MONOnitrate (24 HR) 30 MG TAB.ER.24H PO SCH (09:39)
[2017-03-07] MEDS: amLODIPine 5 MG TABLET PO SCH (09:40)
[2017-03-07] MEDS: Gabapentin 300 MG CAPSULE PO SCH (09:40)
[2017-03-07] MEDS: Metoprolol XL (24 HR) Succ 50 MG TAB.ER.24H PO SCH (09:41)
--- NOTE | 2017-03-07 09:50 | Cardiology Progress Note ---
Date of Encounter: 03/07/17 Time of Encounter: 08:00 Assessment and Plan (1) NSTEMI (non-ST elevated myocardial infarction) Current Visit: Yes Status: Acute Per cardiology: -KNown CAD with multiple PCIs. Previous cath 05/2016 with left main 15% stenosis , 15% proximal LAD in stent, 30% mid LAD in stent, diagonal 1 with patent stent , 30% proximal circumflex, 25% proximal RCA, 30% distal RCA, RCA with patent stents from 05/16/16. -Patient presents with chest pain that occured at rest. States similar to previous AL. -Troponin 0.33, 0.36, 0.33. Of note, at the time of last stent 05/16/16 troponins 0.37-0.42. -On asa, plavix, statin, calcium channel lula,imdur, and beta lula. Denies missed asa or plavix doses. -Currently chest pain free. -Stress 12/2016 with fixed perfusion defect noted in basal inferoseptum, basal mid inferior wall, and basal mid inferolateral wall. -Echo 05/16/16 with LVEF 40-45%. Mild to moderate septal hypertrophy, mildly dilated right atrium, borderline dilated aortic root measuring 4cm, valvular function not assessed. Patient was to have repeat echo as outpatient. -Cath 03/06/17 with 20% stenosis proximal LAD, 20% mid LAD, patent diagnonal 1 stent, 20% proximal circumflex, RCA with previous stents patent, 40% distal RCA , small jailed PDA 90% stenososis noted with LUIS E 3 flow at the ostium of PDA and focal spontaneous dissection noted. No intervention was performed. -Echo 03/06/17 with LVEF 50%, moderate left ventricular diastolic dysfunction, segmental left ventricular systolic dysfunction, moderately dilated right atrium , mild-moderate tricuspid regurgitation, severe pulmonary hypertension, small inferolateral pericardial effusion, no evidence of tamponade, mid inferior and basal inferior wilson were akinetic, all other wall segments with normal motion. -Cardiology will sign off and will follow up in outpatient setting. Follow up set. (2) TROY (acute kidney injury) Current Visit: Yes Status: Acute Per cardiology: -Creatinine 1.49 on admission. DOwn to 1.13 today. -Baseline 0.6-0.9. -Patient reports poor oral intake prior to hospitalization. -Management per primary service. (3) Hypertension Current Visit: No Status: Chronic Per cardiology: -KNown hypertension. -ON beta lula and calcium channel lula. -BPs 110-160s systolic. -Of note, since addition of calcium channel lula yesterday, BP appears more controlled. Had one elevated BP this morning noted to be at 160 systolic. -Can consider further titration of anti-hypertensive medication. -Will continue to monitor in outpatient setting. Qualifiers: Hypertension type: essential hypertension Qualified Code(s): I10 - Essential (primary) hypertension (4) Hyperlipidemia Current Visit: No Status: Chronic Per cardiology: -Known history of hyperlipidemia. -On statin at home. Resumed during hospital stay. -AST and ALT within normal limits. -Lipid panel 12/2016 triglycerides 170, cholesterol 196. LDL 138. HDL 24. -Will continue to monitor in outpatient setting. Qualifiers: Hyperlipidemia type: unspecified Qualified Code(s): E78.5 - Hyperlipidemia , unspecified (5) Tobacco abuse Current Visit: No Status: Chronic Per cardiology: -Current smoker. -Reports smoking about 1pack per day for 20 years. -I spent 3-5 minutes reviewing smoking cessation education with patient. (6) Hypomagnesemia Current Visit: Yes Status: Acute Per cardiology: -Mg noted to be 1.5 yesterday. Mg rider was given. -Mg 1.8 today. Discussion w patient/family: The assessment and plan as outlined above was discussed with the patient who expressed understanding and agreement. All questions were answered. Thank you for involving us in the care of your patient. Please call with any questions. Discussed and reviewed with . Subjective Principal diagnosis: chest pain Interval history: Patient was admitted with chest pain that was similar to his previous symptoms. Troponins were elevated. Patient underwent LHC yesterday with no intervention needed. Patient denies chest pain overnight. Denies issues with groin access site. Objective Vital Signs, Last 4 Hours Temp Pulse Resp BP Pulse Ox 03/07/17 07:00 98.4 F 73 15 162/103 97 General: Conversant, No Apparent Distress HEENT: Atraumatic, Normocephaly, Mucus Membranes Moist Neck: No JVD, Normal carotid pulses Cardiac: Reg Rate and Rhythm, Normal S1 and S2, No Murmur Lungs: Normal Breath Sounds, No Wheeze, Rales, Rhonchi Neuro: Alert and responsive, No focal deficits noted Abdomen: Soft, Non-Tender Skin: No rashes noted on visualized skin, Other (RIght groin access site without ecchymosis or hematoma. ) Musculoskeletal: No Chest Wall Tenderness Extremities: No Clubbing, No Cyanosis, No Edema, Normal Pulses Results 03/06/17 03:31 03/07/17 03:44 Lab Results Current Medications Acetaminophen (Tylenol) 650 mg PO Q6HR PRN PRN Reason: Pain Stop: 09/05/17 13:31 Last Admin: 03/06/17 14:25 Dose: 650 mg Albuterol Sulfate (Albuterol Inhaler) 2 puff IH Q4HR PRN PRN Reason: Shortness Of Breath Stop: 09/05/17 01:10 Amlodipine Besylate (Norvasc) 5 mg PO DAILY BERNABE PRN Reason: Protocol Stop: 09/05/17 16:50 Last Admin: 03/07/17 09:40 Dose: 5 mg Aspirin (Aspirin Ec) 81 mg PO DAILY [facility] Stop: 09/05/17 09:01 Last Admin: 03/07/17 09:39 Dose: 81 mg Atorvastatin Calcium (Lipitor) 80 mg PO HS [facility] Stop: 09/05/17 21:01 Last Admin: 03/06/17 21:50 Dose: 80 mg Clopidogrel Bisulfate (Plavix) 75 mg PO DAILY [facility] Stop: 09/05/17 09:01 Last Admin: 03/07/17 09:41 Dose: 75 mg Gabapentin (Neurontin) 300 mg PO TID [facility] Stop: 09/05/17 09:01 Last Admin: 03/07/17 09:40 Dose: 300 mg Nitroglycerin (Nitroglycerin) 25 mg in 250 mls @ 3 mls/hr IVC .Q24H BERNABE; 5 MCG/ MIN PRN Reason: Protocol Stop: 09/04/17 23:46 Last Titration: 03/06/17 09:54 Dose: 15 mcg/min, 9 mls/hr Insulin Human Lispro (Humalog) 0 units SQ TIDAC BERNABE PRN Reason: Protocol Stop: 09/05/17 07:31 Last Admin: 03/07/17 09:33 Dose: 6 units Isosorbide Mononitrate (Imdur) 30 mg PO DAILY [facility] Stop: 09/05/17 16:49 Last Admin: 03/07/17 09:39 Dose: 30 mg Metoprolol Succinate (Toprol Xl) 50 mg PO DAILY [facility] Stop: 09/05/17 09:01 Last Admin: 03/07/17 09:41 Dose: 50 mg Omeprazole (Prilosec) 20 mg PO DAILY@0730 [facility] Stop: 09/05/17 07:31 Last Admin: 03/07/17 09:39 Dose: 20 mg Trazodone HCl (Trazodone) 100 mg PO HS [facility] Stop: 09/05/17 21:01 Last Admin: 03/06/17 21:51 Dose: 100 mg Laboratory Tests 03/05/17 03/06/17 03/06/17 19:53 03:31 08:52 Creatinine Troponin I 0.33 H* 0.36 H* 0.33 H* 03/07/17 03:44 Creatinine 1.13 Troponin I - Imaging and Cardiology Chest Xray: report reviewed Echo: pending, report reviewed Cardiac cath: report reviewed - EKG Interpretation EKG results cardiology: other (Telemetry reviewed with average HR 68, sinus rhythm. Rare PVCs. PACs noted.) Consult Discharge Plan - Plan Referrals: Richard Monte DO [Primary Care Provider] - 03/14/17 12:00 pm
[2017-03-07 10:08] LABS: Magnesium 1.8 mg/dL (1.6-2.6)
--- NOTE | 2017-03-07 12:51 | Event Note ---
Date of Encounter: 03/07/17 Time of Encounter: 12:30 I was asked to see the patient for an abscess on his left shoulder which opened up 2 days ago. The patient states that he had an I&D complete at an outside ED and the area was no packed. It has now closed over and is tender/swollen and seeping. The area was opened back up with the use of pick-ups. A small amount of purulent drainage was decompressed. The cavity was packed with 1/4 inch plain packing and then covered with 4X4 and taped to secure. He tolerated this without difficulty and no complications were noted. Instructions: cleanse area with soap and water in the shower daily, pack with 1/ 4 inch plain gauze, cover with 4X4 and tape to secure for the next 5-7 days. The patient states that family can help with the packing. May f/u with PCP for further management. Follow-up with surgery office as needed if any further complications.
--- NOTE | 2017-03-07 13:10 | Discharge Summary ---
<Harvey De Dios P - Last Filed: 03/07/17 14:47> Date of Encounter: 03/07/17 - Discharge Medications Prescriptions: amLODIPine [Norvasc] 10 mg PO DAILY #30 tablet Atorvastatin [Lipitor] 80 mg PO HS #30 tablet Blood Sugar Diagnostic [Test Strips] 1 each MC TID #90 strip Isosorbide MONOnitrate (24 HR) [Imdur] 30 mg PO DAILY #30 tab.er.24h Lancets [Blood Lancets] 1 each MC TID #90 each Lisinopril [Zestril] 20 mg PO DAILY #30 tablet Pen Needle, Diabetic [Pen Needle] 1 each MC 5XD #150 dis.needle Sulfamethoxazole/Trimeth DS [Bactrim DS] 1 each PO BID #10 tablet Home Medications: Aspirin [Adult Low Dose Aspirin EC] 81 mg PO DAILY 12/14/15 [History] Clopidogrel [Plavix] 75 mg PO DAILY 12/14/15 [History] Metformin HCl [Metformin HCl ER] 1,000 mg PO DAILY 12/14/15 [History] Metoprolol Succinate 50 mg PO DAILY 12/14/15 [History] traZODone [TraZODone] 100 mg PO HS 12/14/15 [History] Baclofen 20 mg PO TID 05/16/16 [History] Pantoprazole Sodium [Protonix] 40 mg PO DAILY 05/16/16 [History] Gabapentin [Neurontin] 800 mg PO TID 01/04/17 [History] Nitroglycerin [Nitrostat] 0.4 mg SL AD PRN 01/04/17 [History] Albuterol Sulfate [Albuterol Inhaler] 2 puff IH Q4HR PRN #1 hfa.aer.ad 01/05/17 [Rx] Furosemide [Lasix] 40 mg PO DAILY 03/05/17 [History] Insulin ASPART [Novolog Flexpen] 0 unit SQ TID 03/05/17 [History] Insulin Glargine,Hum.rec.anlog [Lantus Solostar] 60 unit SQ BID 03/05/17 [ History] Potassium Chloride [Klor-Con 10] 10 meq PO DAILY 03/05/17 [History] Atorvastatin [Lipitor] 80 mg PO HS #30 tablet 03/07/17 [Rx] Blood Sugar Diagnostic [Test Strips] 1 each MC TID #90 strip 03/07/17 [Rx] Isosorbide MONOnitrate (24 HR) [Imdur] 30 mg PO DAILY #30 tab.er.24h 03/07/17 [ Rx] Lancets [Blood Lancets] 1 each TID #90 each 03/07/17 [Rx] Lisinopril [Zestril] 20 mg PO DAILY #30 tablet 03/07/17 [Rx] Pen Needle, Diabetic [Pen Needle] 1 each 5XD #150 dis.needle 03/07/17 [Rx] Sulfamethoxazole/Trimeth DS [Bactrim DS] 1 each PO BID #10 tablet 03/07/17 [Rx] amLODIPine [Norvasc] 10 mg PO DAILY #30 tablet 03/07/17 [Rx] Allergies/Adverse Reactions: Allergies morphine Adverse Reaction (Verified 03/05/17 19:36) Agitated Procedures/tests Complete & Pending: Procedures Performed prior 72 hours Category Date Time Status CL Cardiac Catheterization [CL] Routine Railroad Brake Repairer 03/06/17 10:13 Completed ECG 12 lead ECG [ECG] Routine Y 03/06/17 00:07 Completed EV echocardiogram Routine Y 03/06/17 10:13 Completed Date of admission: 03/06/17 01:31 Primary care physician: Phong Hardy Consults: 03/06/17 09:52 Consult to Cardiac Rehabilitation-Phase1 [CONS] Routine Comment: Reason for Consult: NSTEMI Call Completed: No - Patient Status Disposition: Home, Self-Care Condition: Fair - Discharge Instructions Instructions: Sulfamethoxazole/Trimethoprim (By mouth), Lisinopril (By mouth), Amlodipine (By mouth), Isosorbide Mononitrate (By mouth), Atorvastatin (By mouth ), Myocardial Infarction (DC), How to Stop Smoking (DC), Diabetes Mellitus Type 2 in Adults (DC), Chronic Hypertension (DC), Abscess (GEN) Follow Up With: Richard Monte DO [Primary Care Provider] - 03/14/17 12:00 pm Additional Instructions: Follow up with Cardiology as scheduled. Follow with PCP in next 5-7 days for re-evaluation of abscess. Or sooner for new or worsening symptoms. Wound Care Instructions: cleanse area with soap and water in the shower daily, pack with 1/4 inch plain gauze, cover with 4X4 and tape to secure for the next 5 -7 days. The patient states that family can help with the packing. May f/u with PCP for further management. Follow-up with surgery office as needed if any further complications. Please ensure patient leaves with the supplies surgery left in patient's room. Hospital course: Mr. Hi is a 46 year old male - Time Spent with Patient Total time spent providing and/or coordinating discharge services: - Constitutional Vitals: Temp Pulse Resp BP Pulse Ox 98.4 F 73 15 162/103 97 03/07/17 07:00 03/07/17 07:00 03/07/17 07:00 03/07/17 07:00 03/07/17 07:00 - Attending Attestation I examined this patient and my medical decision-making was reviewed with the SPRING FLOOR SERVICE WORKER/PA/Advanced Practice Nurse/Resident Physician. I agree with the documented findings, disposition and treatment plan as described except to the extent set forth below. <Arvind Bobo - Last Filed: 03/07/17 21:36> Date of Encounter: 03/07/17 Time of Encounter: 09:10 - Discharge Diagnosis (1) NSTEMI (non-ST elevated myocardial infarction) Priority: Primary Status: Acute Comments: Hx of CAD with multiple PCIs. [facility] 05/2016 with left main 15% stenosis, 15% proximal LAD in stent, 30% mid LAD in stent, diagonal 1 with patent stent, 30% proximal circumflex, 25% proximal RCA, 30% distal RCA, RCA with patent stents from 05/16/16. Stress 12/2016 with fixed perfusion defect noted in basal inferoseptum, basal mid inferior wall, and basal mid inferolateral wall. Echo 05/16/16 with LVEF 40-45%. Mild to moderate septal hypertrophy, mildly dilated right atrium, borderline dilated aortic root measuring 4cm, valvular function not assessed. Patient was to have repeat echo as outpatient. Troponin 0.33, 0.36, 0.33. On asa, plavix, statin, ALEJANDRO inh, calcium channel lula,imdur, and beta lula. Cath 03/06/17 with 20% stenosis proximal LAD, 20% mid LAD, patent diagnonal 1 stent, 20% proximal circumflex, RCA with previous stents patent, 40% distal RCA , small jailed PDA 90% stenososis noted with LUIS E 3 flow at the ostium of PDA and focal spontaneous dissection noted. No intervention was performed. Echo 03/06/17 with LVEF 50%, moderate left ventricular diastolic dysfunction, segmental left ventricular systolic dysfunction, moderately dilated right atrium , mild-moderate tricuspid regurgitation, severe pulmonary hypertension, small inferolateral pericardial effusion, no evidence of tamponade, mid inferior and basal inferior wilson were akinetic, all other wall segments with normal motion. Patient now chest pain free. (2) Coronary artery disease Priority: Secondary Status: Acute Comments: See above. Qualifiers: Coronary Disease-Associated Artery/Lesion type: [place] artery [place] vs. transplanted heart: [place] heart Associated angina: angina presence unspecified Qualified Code(s): I25.10 - Atherosclerotic heart disease of [place] coronary artery without angina pectoris (3) History of noncompliance with medical treatment Priority: Secondary Status: Chronic (4) Hyperlipidemia Priority: Secondary Status: Chronic Comments: Continue statin. Qualifiers: Hyperlipidemia type: unspecified Qualified Code(s): E78.5 - Hyperlipidemia , unspecified (5) Hypertension Priority: Secondary Status: Chronic Comments: Previously on Lisinopril/HCTZ in addition to beta lula. Discussed with Cardio, will continue beta lula, stop HCTZ, increase Lisinopril, and start Norvasc as it may decrease anginal episodes. Qualifiers: Hypertension type: essential hypertension Qualified Code(s): I10 - Essential (primary) hypertension (6) Hypomagnesemia Priority: Secondary Status: Resolved Comments: Mg 1.5>1.8. Replaced yesterday. (7) Uncontrolled type II diabetes mellitus Priority: Secondary Status: Chronic Comments: Patient reported episodes of hypoglycemia on 60units BID of Lantus, but none on 30units BID. Temporarily lowered long acting insulin to ensure patient does not have a hypoglycemia episode. Patient noted to have history of poor compliance. A1C in 07/2016 was 9.7. Patient also states he does not have any diabetic supplies to monitor BG. Pharmacist check that patient has a meter waiting at pharmacy from previous Rx, and we provided scripts for testing strips, lancets, and pen needles. Patient to regularly check BG, and report these to PCP in one week for further titration of medications. 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 Spoke with Surgery, Bertha Peguero CNP to evaluate and treat; I&D of the lesion was completed at bedside, The cavity was packed with 1/4 inch plain packing and then covered with 4X4 and taped to secure. Instructions per surgery: cleanse area with soap and water in the shower daily, pack with 1/4 inch plain gauze, cover with 4X4 and tape to secure for the next 5 -7 days. The patient states that family can help with the packing. May f/u with PCP for further management. Follow-up with surgery office as needed if any further complications. Given 5 days of Bactrim for possible Staph infection. (9) TROY (acute kidney injury) Priority: Secondary Status: Acute Comments: Creatinine improved from 1.49 on admission to 1.13 on discharge. Possibly 2/2 to poor perfusion in setting of SC. Procedures/tests Complete & Pending: Procedures Performed prior 72 hours Category Date Time Status CL Cardiac Catheterization [CL] Routine Railroad Brake Repairer 03/06/17 10:13 Completed ECG 12 lead ECG [ECG] Routine Y 03/06/17 00:07 Completed EV echocardiogram Routine Y 03/06/17 10:13 Completed Date of admission: 03/06/17 01:31 Primary care physician: Phong Hardy Consults: 03/06/17 09:52 Consult to Cardiac Rehabilitation-Phase1 [CONS] Routine Comment: Reason for Consult: NSTEMI Call Completed: No Discharging clinician: Harvey De Dios Anticipated date of discharge: 03/07/17 - Patient Status Functional capacity at discharge: independent ambulation Overall status at discharge: patient is back to baseline - Diet and Activity Activity: increase activity as tolerated Diet: diabetic diet, low fat, low cholesterol, low salt diet Interval History: Do well, no chest pain, shortness of breath, nausea or vomiting. Patient states he is ready to go home.Noted bloody pillow due to draining abscess on left shoulder. Hospital course: Mr. Hi is a 46-year-old male with coronary artery, history his had 6 stents in the past comes in complaining of chest pain. Patient states he was lightheaded and dizzy was at work. Patient was sent to another ER where he was found to have elevated cardiac enzymes, when he couldn't get transfer to [facility], patient left AMA and presented to our ED with complaints of chest pain. Cath 03/06/17 with 20% stenosis proximal LAD, 20% mid LAD, patent diagnonal 1 stent, 20% proximal circumflex, RCA with previous stents patent, 40% distal RCA , small jailed PDA 90% stenososis noted with LUIS E 3 flow at the ostium of PDA and focal spontaneous dissection noted. No intervention was performed. Echo 03/06/17 with LVEF 50%, moderate left ventricular diastolic dysfunction, segmental left ventricular systolic dysfunction, moderately dilated right atrium , mild-moderate tricuspid regurgitation, severe pulmonary hypertension, small inferolateral pericardial effusion, no evidence of tamponade, mid inferior and basal inferior wilson were akinetic, all other wall segments with normal motion. Cardiology recommended medical management: ASA, plavix, BB, statin, ALEJANDRO inhibitor imdur, and Ca channel lula. We reviewed patient's diabetes and elevated BG due to history of poor control and non-compliance; adjustments made to prevent hypoglycemia after discharge. Prior to discharge patient also noted to have abscess on left shoulder which he states was excised by outside ED 2 days ago that had since scabbed over, was very firm and tender, and noted to be leaking blood and pus. Spoke with Surgery, Bertha Peguero CNP to evaluate and treat; I&D of the lesion was completed at bedside, The cavity was packed with 1/4 inch plain packing and then covered with 4X4 and taped to secure. 5 days of Bactrim sent to cover for staph infection. Patient chest pain free and vitals stable at discharge, patient and / girlfriend feel comfortable with discharge at this time. Time spent discussing smoking cessation with patient: 3 to 10 minutes - Time Spent with Patient Total time spent providing and/or coordinating discharge services: Greater than 30 minutes (45m) - Constitutional Vitals: Temp Pulse Resp BP Pulse Ox 98.4 F 73 15 162/103 97 03/07/17 07:00 03/07/17 07:00 03/07/17 07:00 03/07/17 07:00 05/26/17 07:00 General appearance: Present: cooperative, A&O X 3, no acute distress, answers questions appropriately - Head Head exam: Present: atraumatic, normocephalic - Eye Eye exam: Present: EOMI, conjuntiva pink - ENT ENT exam: Present: mucous membranes moist - Neck Neck exam general surgery: Present: full ROM, supple - Respiratory Respiratory exam: Present: CTAB. Absent: rales, rhonchi - Cardiovascular Cardiovascular exam: Present: RRR - GI/Abdominal GI/Abdominal exam: Present: normal bowel sounds, soft. Absent: firm, guarding, tenderness - Extremities Exam Extremities exam: Absent: pedal edema, tenderness - Neurological Exam Neurological exam: Present: alert, oriented X3, no focal deficits - Skin Additional comments: Noted circular abscess on left shoulder superficial to supraspinatus. Approx 3cm in diameter. firm and warm to palpation with fluctuation. No induration. Scab located in center of abscess.
[2017-03-08 18:21] LABS: CK-MB (CK isoenzymes) 0 % (0-4); CK-MM (CK-isoenzymes) 100 % (96-100)
[2017-03-09 07:45] LABS: CK Total (Ck Isoenzymes) 69 U/L (20-200); CK-BB (CK isoenzymes) 0 % (0-0)
== END 2017-03-07 16:00 | disposition home or self-care (01) | DRG 190 ==
LOC: EMEROO 19:14 → 2NENU 19:14
PROVIDERS: ADMIT Internal Medicine; ATTEND Internal Medicine

== ENCOUNTER 2017-03-30 19:11 | Observation (INO) ==
[2017-03-30] MEDS ORDERED: 0.9 % Sodium Chloride 1,000 ML IVC ONE ×2 (19:32→21:40)
[2017-03-30] MEDS ORDERED: diazePAM 10 MG/2 ML SYRINGE IVP ONE (19:47)
[2017-03-30 20:06] LABS: Basophils % 0.6 %; Eosinophils # 0.2 K/mcL (0.0-0.6); Eosinophils % 2.2 %; Hematocrit 35.3 % (37.5-50.1); Hemoglobin 12.3 g/dL (12.9-16.9); Immature Granulocytes % 0.3 % (0-4); Lymphocytes # 2.3 K/mcL (0.6-4.6); Lymphocytes % 31.3 %; Mean Corpuscular HGB Conc 34.8 g/dL (31.6-35.5); Mean Corpuscular Hemoglobin 30.9 pg (28.0-33.3); Mean Corpuscular Volume 88.7 fL (83.0-100.0); Monocytes # 0.7 K/mcL (0.0-1.3); Monocytes % 9.2 %; Neutrophils # 4.1 K/mcL (1.6-8.9); Platelet Count 262 K/mcL (140-400); Red Blood Count 3.98 M/mcL (4.19-5.50); Segmented Neutrophils % 56.4 %
[2017-03-30 20:06] LABS: Bilirubin,Urine Negative (Negative); Blood,Urine Small (Negative); Color,Urine Yellow (Yellow); Glucose,Urine (UA) >=1000 mg/dL (Normal); Ketones,Urine Negative (Negative); Leukocyte Esterase,Urine Negative (Negative); Nitrite,Urine Negative (Negative); PH,Urine 5.5 pH Units (5.0-8.0); Protein,Urine >=300 mg/dL (Neg-Trace); Urobilinogen,Urine Normal (Normal)
[2017-03-30 20:07] LABS: Bacteria,Urine None Seen per hpf (None-Few); Hyaline Casts,Urine None Seen per lpf (None-Few); Squamous Epithelial Cell,Urine Many per lpf (None-Few)
[2017-03-30 20:08] LABS: Clarity,Urine Slightly Hazy (Clear)
[2017-03-30 20:14] LABS: INR 1.1; Prothrombin Time 12.4 Seconds (9.4-12.1)
[2017-03-30 20:17] LABS: Activated Partial Thrombo Time 31.1 Seconds (26.0-36.0)
[2017-03-30 20:20] LABS: Albumin 2.9 g/dL (3.5-5.0); Albumin/Globulin Ratio 0.6 (1.1-2.2); Bilirubin,Total 0.2 mg/dL (0.2-1.2); Calcium 9.7 mg/dL (8.6-10.8); Globulin 5.1 g/dL (2.4-3.5); Potassium 3.8 mEq/L (3.5-4.5)
[2017-03-30] MEDS ORDERED: Aspirin 81 MG TAB.CHEW PO ONE (20:28)
[2017-03-30] MEDS ORDERED: Nitroglycerin 0.4 MG TAB.SUBL SL PRN (20:28)
--- NOTE | 2017-03-30 20:32 | Emergency Department Note ---
Disposition Clinical Impression: Syncope, Renal insufficiency, Elevated troponin Disposition: Admitted As Inpatient Condition: Fair Time of Disposition: 23:34 Dizziness HPI - General Chief Complaint: ED Syncope Stated Complaint: near syncope/sore on right leg Time Seen by Provider: 03/30/17 19:30 Source: patient Mode of arrival: private vehicle Limitations: no limitations Nursing Notes Reviewed: Yes Vital Signs Reviewed: Yes - History of Present Illness HPI Narrative: 46-year-old male presents to the emergency department with complaint of " feeling like I am about to pass out." Patient also states that he has had some mild shortness of breath. He also complains of back spasms. He denies any true syncopal episode, however states that his symptoms are intermittent and "come in waves." Patient has been evaluated for this prior to this visit to the emergency department and no findings were noted. Patient states that he has underwent extensive evaluation with no conclusive results. He denies any specific chest pain, however states that he does have intermittent chest discomfort which he describes as sharp. He denies any recent illness, he denies any fever, chills, nausea, vomiting or abdominal pain. Additionally, he notes that he has had an open sore to his left lower leg which she has been seen and treated for at an urgent care but has not improved. His only known drug allergies to morphine. He has no additional complaints or concerns. Pt Subjective Complaint: dizziness, lightheadedness, near syncope Onset (ago): day(s) Timing: gradual onset Description: lightheadedness, off-balance History of similar episodes: Yes History of trauma: No ( ) - Related Data Home Medications Medication Instructions Recorded Confirmed Aspirin [Adult Low Dose Aspirin EC] 81 mg PO DAILY 12/14/15 03/05/17 Clopidogrel [Plavix] 75 mg PO DAILY 12/14/15 03/05/17 Metformin HCl [Metformin HCl ER] 1,000 mg PO DAILY 12/14/15 03/05/17 Metoprolol Succinate 50 mg PO DAILY 12/14/15 03/05/17 traZODone [TraZODone] 100 mg PO HS 12/14/15 03/05/17 Baclofen 20 mg PO TID 05/16/16 03/05/17 Pantoprazole Sodium [Protonix] 40 mg PO DAILY 05/16/16 03/05/17 Gabapentin [Neurontin] 800 mg PO TID 01/04/17 03/05/17 Nitroglycerin [Nitrostat] 0.4 mg SL AD PRN 01/04/17 03/05/17 Furosemide [Lasix] 40 mg PO DAILY 03/05/17 03/05/17 Insulin ASPART [Novolog Flexpen] 0 unit SQ TID 03/05/17 03/05/17 Insulin Glargine,Hum.rec.anlog 60 unit SQ BID 03/05/17 03/05/17 [Lantus Solostar] Potassium Chloride [Klor-Con 10] 10 meq PO DAILY 03/05/17 03/05/17 Previous Rx's Medication Instructions Recorded Albuterol Sulfate [Albuterol 2 puff IH Q4HR PRN #1 hfa.aer.ad 01/05/17 Inhaler] Atorvastatin [Lipitor] 80 mg PO HS #30 tablet 03/07/17 Blood Sugar Diagnostic [Test 1 each MC TID #90 strip 03/07/17 Strips] Isosorbide MONOnitrate (24 HR) 30 mg PO DAILY #30 tab.er.24h 03/07/17 [Imdur] Lancets [Blood Lancets] 1 each MC TID #90 each 03/07/17 Lisinopril [Zestril] 20 mg PO DAILY #30 tablet 03/07/17 Pen Needle, Diabetic [Pen Needle] 1 each MC 5XD #150 dis.needle 03/07/17 Sulfamethoxazole/Trimeth DS 1 each PO BID #10 tablet 03/07/17 [Bactrim DS] amLODIPine [Norvasc] 10 mg PO DAILY #30 tablet 03/07/17 Allergies Allergy/AdvReac Type Severity Reaction Status Date / Time morphine AdvReac Agitated Verified 03/05/17 19:36 All systems ED: reviewed and negative except as stated. Constitutional: Denies: fever, chills Cardiovascular: Denies: chest pain Respiratory: Denies: cough, dyspnea, wheezes Gastrointestinal: Reports: nausea. Denies: abdominal pain, vomiting Musculoskeletal: Denies: back pain, neck pain Integumentary: Denies: rash, abrasion, lesions Neurological: Reports: other (dizziness). Denies: headache, weakness Psychiatric: Denies: anxiety, depression, suicidal thoughts, homicidal thoughts Past Medical History - Past Medical History Attestation: Yes The following information was validated with the patient. Source: patient, nursing notes reviewed Medical history: Reports: coronary artery disease, diabetes, hepatitis, myocardial infarction Surgical history: Reports: angioplasty/stent, orthopedic, other Psychiatric history: Reports: depression - Social History Smoking Status: Current every day smoker Smokeless Tobacco Status: No Alcohol use: Reports: none Drug use: Reports: none Physical Exam - General Limitations: no limitations General appearance: alert, in no apparent distress - Head Head exam: atraumatic, normocephalic, normal inspection - Eye Eye exam: Present: normal appearance, PERRL - Neck Neck exam: Present: normal inspection, full ROM, trachea midline - Chest Chest inspection: Present: normal inspection, symmetric chest wall rise - Respiratory Respiratory exam: Present: normal lung sounds bilaterally. Absent: respiratory distress - Cardiovascular Cardiovascular exam: Present: regular rate, normal rhythm, normal heart sounds - Abdominal Exam Abdominal exam: Present: soft, Non-Tender, normal bowel sounds - Extremities Exam Extremities exam: Present: normal inspection, full ROM. Absent: tenderness, pedal edema - Back Exam Back exam: Present: normal inspection, full ROM. Absent: tenderness - Neurological Exam Neurological exam: Present: alert, oriented X3 - Psychiatric Psychiatric exam: Present: normal affect, normal mood - Skin Skin exam: Present: warm, dry, intact, normal color Course Course Narrative: I spoke with the hospitalist, he accepts patient for admission. Patient currently resting comfortably. No acute distress noted, vital signs within normal limits. Vital Signs Temperature 97.5 F L 03/30/17 19:12 Pulse Rate 86 03/30/17 19:12 Respiratory Rate 18 03/30/17 19:12 Blood Pressure 111/76 03/30/17 19:12 O2 Sat by Pulse Oximetry 99 03/30/17 19:12 Temperature 98.1 F 03/30/17 22:50 Pulse Rate 64 03/30/17 22:15 Respiratory Rate 18 03/30/17 22:50 Blood Pressure 134/88 03/30/17 22:50 O2 Sat by Pulse Oximetry 100 03/30/17 22:15 Oxygen Delivery Oxygen Delivery Room Air Dizziness - Lab Data Lab results reviewed: Yes I reviewed the patient's lab results. Result diagrams: 03/30/17 19:48 03/30/17 19:48 Lab Results 03/30/17 03/30/17 03/30/17 Range/Units 19:45 19:48 19:48 WBC 7.2 (4.3-11.1) K/mcL RBC 3.98 L (4.19-5.50) M/mcL Hgb 12.3 L (12.9-16.9) g/dL Hct 35.3 L (37.5-50.1) % MCV 88.7 (83.0-100.0) fL MCH 30.9 (28.0-33.3) pg MCHC 34.8 (31.6-35.5) g/dL RDW 13.0 (11.5-14.5) % Plt Count 262 (140-400) K/mcL MPV 10.0 (9.4-12.4) fL Immature Gran % 0.3 (0-4) % Seg Neutrophils % 56.4 % Lymphocytes % 31.3 % Monocytes % 9.2 % Eosinophils % 2.2 % Basophils % 0.6 % Neutrophils # 4.1 (1.6-8.9) K/mcL Lymphocytes # 2.3 (0.6-4.6) K/mcL Monocytes # 0.7 (0.0-1.3) K/mcL Eosinophils # 0.2 (0.0-0.6) K/mcL Basophils # 0.0 (0.0-0.2) K/mcL PT 12.4 H (9.4-12.1) Seconds INR 1.1 APTT 31.1 (26.0-36.0) Seconds Sodium (136-145) mEq/L Potassium (3.5-4.5) mEq/L Chloride (98-109) mEq/L Carbon Dioxide (19-29) mEq/L BUN (8-26) mg/dL Creatinine (0.72-1.25) mg/dL Est GFR ( Amer) (> 60) Est GFR (Non-Af Amer) (> 60) BUN/Creatinine Ratio (6-26) Glucose (70-99) mg/dL Calculated Osmolality (280-300) Calcium (8.6-10.8) mg/dL Total Bilirubin (0.2-1.2) mg/dL AST (5-34) Units/L ALT (0-55) Units/L Alkaline Phosphatase (38-126) Units/L Troponin I (0-0.03) ng/mL Serum Total Protein (6.0-8.3) g/dL Albumin (3.5-5.0) g/dL Globulin (2.4-3.5) g/dL Albumin/Globulin Ratio (1.1-2.2) Ur Specimen Adequacy See below A Urine Color Yellow (Yellow) Urine Clarity Slightly Hazy (Clear) Urine pH 5.5 (5.0-8.0) pH Units Ur Specific [place] 1.030 H (1.010-1.025) Urine Protein >=300 H (Neg-Trace) mg/dL Urine Glucose (UA) >=1000 H (Normal) mg/dL Urine Ketones Negative (Negative) mg/dL Urine Blood Small H (Negative) Urine Nitrite Negative (Negative) Urine Bilirubin Negative (Negative) Urine Urobilinogen Normal (Normal) mg/dL Ur Leukocyte Esterase Negative (Negative) Urine Microscopic RBC 5-15 H (0-3) per hpf Urine Microscopic WBC 3-5 H (0-3) per hpf Ur Squamous Epith Cells Many H (None-Few) per lpf Urine Bacteria None Seen (None-Few) per hpf Hyaline Casts None Seen (None-Few) per lpf 03/30/17 03/30/17 Range/Units 19:48 19:48 WBC (4.3-11.1) K/mcL RBC (4.19-5.50) M/mcL Hgb (12.9-16.9) g/dL Hct (37.5-50.1) % MCV (83.0-100.0) fL MCH (28.0-33.3) pg MCHC (31.6-35.5) g/dL RDW (11.5-14.5) % Plt Count (140-400) K/mcL MPV (9.4-12.4) fL Immature Gran % (0-4) % Seg Neutrophils % % Lymphocytes % % Monocytes % % Eosinophils % % Basophils % % Neutrophils # (1.6-8.9) K/mcL Lymphocytes # (0.6-4.6) K/mcL Monocytes # (0.0-1.3) K/mcL Eosinophils # (0.0-0.6) K/mcL Basophils # (0.0-0.2) K/mcL PT (9.4-12.1) Seconds INR APTT (26.0-36.0) Seconds Sodium 138 (136-145) mEq/L Potassium 3.8 (3.5-4.5) mEq/L Chloride 108 (98-109) mEq/L Carbon Dioxide 23 (19-29) mEq/L BUN 26 (8-26) mg/dL Creatinine 1.64 H (0.72-1.25) mg/dL Est GFR ( Amer) 56 L (> 60) Est GFR (Non-Af Amer) 46 L (> 60) BUN/Creatinine Ratio 16 (6-26) Glucose 43 L (70-99) mg/dL Calculated Osmolality 288 (280-300) Calcium 9.7 (8.6-10.8) mg/dL Total Bilirubin 0.2 (0.2-1.2) mg/dL AST 20 (5-34) Units/L ALT 18 (0-55) Units/L Alkaline Phosphatase 104 (38-126) Units/L Troponin I 0.25 H* (0-0.03) ng/mL Serum Total Protein 8.0 (6.0-8.3) g/dL Albumin 2.9 L (3.5-5.0) g/dL Globulin 5.1 H (2.4-3.5) g/dL Albumin/Globulin Ratio 0.6 L (1.1-2.2) Ur Specimen Adequacy Urine Color (Yellow) Urine Clarity (Clear) Urine pH (5.0-8.0) pH Units Ur Specific [place] (1.010-1.025) Urine Protein (Neg-Trace) mg/dL Urine Glucose (UA) (Normal) mg/dL Urine Ketones (Negative) mg/dL Urine Blood (Negative) Urine Nitrite (Negative) Urine Bilirubin (Negative) Urine Urobilinogen (Normal) mg/dL Ur Leukocyte Esterase (Negative) Urine Microscopic RBC (0-3) per hpf Urine Microscopic WBC (0-3) per hpf Ur Squamous Epith Cells (None-Few) per lpf Urine Bacteria (None-Few) per hpf Hyaline Casts (None-Few) per lpf - Radiology Data Radiology results reviewed: Yes I reviewed the patient's radiology results. - EKG Data EKG attestation: Yes I reviewed and interpreted this EKG.
[2017-03-30] MEDS ORDERED: *HR* Dextrose 50 % in Water (Vial) 50 ML VIAL IVP ONE (20:38)
--- NOTE | 2017-03-30 20:44 | Emergency Department Note ---
Disposition Clinical Impression: Syncope, Renal insufficiency, Elevated troponin Disposition: Admitted As Inpatient Condition: Fair General Adult HPI - General Chief complaint: ED Syncope Stated complaint: near syncope/sore on right leg Time Seen by Provider: 03/30/17 19:30 Source: patient Mode of arrival: private vehicle Limitations: no limitations - History of Present Illness Pain Scale: 5 - Related Data Home Medications Medication Instructions Recorded Confirmed Aspirin [Adult Low Dose Aspirin EC] 81 mg PO DAILY 12/14/15 03/05/17 Clopidogrel [Plavix] 75 mg PO DAILY 12/14/15 03/05/17 Metformin HCl [Metformin HCl ER] 1,000 mg PO DAILY 12/14/15 03/05/17 Metoprolol Succinate 50 mg PO DAILY 12/14/15 03/05/17 traZODone [TraZODone] 100 mg PO HS 12/14/15 03/05/17 Baclofen 20 mg PO TID 05/16/16 03/05/17 Pantoprazole Sodium [Protonix] 40 mg PO DAILY 05/16/16 03/05/17 Gabapentin [Neurontin] 800 mg PO TID 01/04/17 03/05/17 Nitroglycerin [Nitrostat] 0.4 mg SL AD PRN 01/04/17 03/05/17 Furosemide [Lasix] 40 mg PO DAILY 03/05/17 03/05/17 Insulin ASPART [Novolog Flexpen] 0 unit SQ TID 03/05/17 03/05/17 Insulin Glargine,Hum.rec.anlog 60 unit SQ BID 03/05/17 03/05/17 [Lantus Solostar] Potassium Chloride [Klor-Con 10] 10 meq PO DAILY 03/05/17 03/05/17 Previous Rx's Medication Instructions Recorded Albuterol Sulfate [Albuterol 2 puff IH Q4HR PRN #1 hfa.aer.ad 01/05/17 Inhaler] Atorvastatin [Lipitor] 80 mg PO HS #30 tablet 03/07/17 Blood Sugar Diagnostic [Test 1 each MC TID #90 strip 03/07/17 Strips] Isosorbide MONOnitrate (24 HR) 30 mg PO DAILY #30 tab.er.24h 03/07/17 [Imdur] Lancets [Blood Lancets] 1 each MC TID #90 each 03/07/17 Lisinopril [Zestril] 20 mg PO DAILY #30 tablet 03/07/17 Pen Needle, Diabetic [Pen Needle] 1 each MC 5XD #150 dis.needle 03/07/17 Sulfamethoxazole/Trimeth DS 1 each PO BID #10 tablet 03/07/17 [Bactrim DS] amLODIPine [Norvasc] 10 mg PO DAILY #30 tablet 03/07/17 Allergies Allergy/AdvReac Type Severity Reaction Status Date / Time morphine AdvReac Agitated Verified 03/05/17 19:36 Past Medical History - Past Medical History Medical history: Reports: coronary artery disease, diabetes, hepatitis, myocardial infarction Surgical history: Reports: angioplasty/stent, orthopedic, other Psychiatric history: Reports: depression - Social History Smoking Status: Current every day smoker Smokeless Tobacco Status: No Alcohol use: Reports: none Drug use: Reports: none Physical Exam - General Limitations: no limitations General appearance: alert, in no apparent distress Course Vital Signs Temperature 97.5 F L 03/30/17 19:12 Pulse Rate 86 03/30/17 19:12 Respiratory Rate 18 03/30/17 19:12 Blood Pressure 111/76 03/30/17 19:12 O2 Sat by Pulse Oximetry 99 03/30/17 19:12 Temperature 97.5 F L 03/31/17 04:00 Pulse Rate 65 03/31/17 04:00 Respiratory Rate 18 03/31/17 04:00 Blood Pressure 136/94 03/31/17 04:00 O2 Sat by Pulse Oximetry 96 03/31/17 04:00 Oxygen Delivery Oxygen Delivery Room Air Medical Decision Making - Lab Data Result diagrams: 03/31/17 00:29 03/31/17 00:29 Lab Results 03/30/17 03/30/17 03/30/17 Range/Units 19:45 19:45 19:48 WBC 7.2 (4.3-11.1) K/mcL RBC 3.98 L (4.19-5.50) M/mcL Hgb 12.3 L (12.9-16.9) g/dL Hct 35.3 L (37.5-50.1) % MCV 88.7 (83.0-100.0) fL MCH 30.9 (28.0-33.3) pg MCHC 34.8 (31.6-35.5) g/dL RDW 13.0 (11.5-14.5) % Plt Count 262 (140-400) K/mcL MPV 10.0 (9.4-12.4) fL Immature Gran % 0.3 (0-4) % Seg Neutrophils % 56.4 % Lymphocytes % 31.3 % Monocytes % 9.2 % Eosinophils % 2.2 % Basophils % 0.6 % Neutrophils # 4.1 (1.6-8.9) K/mcL Lymphocytes # 2.3 (0.6-4.6) K/mcL Monocytes # 0.7 (0.0-1.3) K/mcL Eosinophils # 0.2 (0.0-0.6) K/mcL Basophils # 0.0 (0.0-0.2) K/mcL PT (9.4-12.1) Seconds INR APTT (26.0-36.0) Seconds Sodium (136-145) mEq/L Potassium (3.5-4.5) mEq/L Chloride (98-109) mEq/L Carbon Dioxide (19-29) mEq/L BUN (8-26) mg/dL Creatinine (0.72-1.25) mg/dL Est GFR ( Amer) (> 60) Est GFR (Non-Af Amer) (> 60) BUN/Creatinine Ratio (6-26) Glucose (70-99) mg/dL POC Glucose (58-89) Calculated Osmolality (280-300) Calcium (8.6-10.8) mg/dL Total Bilirubin (0.2-1.2) mg/dL AST (5-34) Units/L ALT (0-55) Units/L Alkaline Phosphatase (38-126) Units/L Troponin I (0-0.03) ng/mL Serum Total Protein (6.0-8.3) g/dL Albumin (3.5-5.0) g/dL Globulin (2.4-3.5) g/dL Albumin/Globulin Ratio (1.1-2.2) Ur Specimen Adequacy See below A Urine Color Yellow (Yellow) Urine Clarity Slightly Hazy (Clear) Urine pH 5.5 (5.0-8.0) pH Units Ur Specific [place] 1.030 H (1.010-1.025) Urine Protein >=300 H (Neg-Trace) mg/dL Urine Glucose (UA) >=1000 H (Normal) mg/dL Urine Ketones Negative (Negative) mg/dL Urine Blood Small H (Negative) Urine Nitrite Negative (Negative) Urine Bilirubin Negative (Negative) Urine Urobilinogen Normal (Normal) mg/dL Ur Leukocyte Esterase Negative (Negative) Urine Microscopic RBC 5-15 H (0-3) per hpf Urine Microscopic WBC 3-5 H (0-3) per hpf Ur Squamous Epith Cells Many H (None-Few) per lpf Urine Bacteria None Seen (None-Few) per hpf Hyaline Casts None Seen (None-Few) per lpf Urine Opiates Screen Negative (Bbgymo=738) ng/mL Ur Barbiturates Screen Negative (Afsszn=587) ng/mL Ur Phencyclidine Scrn Negative (Cutoff=25) ng/mL Ur Amphetamines Screen Negative (Rpiwrc=3144) ng/mL U Benzodiazepines Scrn Negative (Ljplcb=052) ng/mL Urine Cocaine Screen Negative (Cutoff= 300) ng/mL U Marijuana (THC) Screen Negative (Cutoff = 50) ng/mL 03/30/17 03/30/17 03/30/17 Range/Units 19:48 19:48 19:48 WBC (4.3-11.1) K/mcL RBC (4.19-5.50) M/mcL Hgb (12.9-16.9) g/dL Hct (37.5-50.1) % MCV (83.0-100.0) fL MCH (28.0-33.3) pg MCHC (31.6-35.5) g/dL RDW (11.5-14.5) % Plt Count (140-400) K/mcL MPV (9.4-12.4) fL Immature Gran % (0-4) % Seg Neutrophils % % Lymphocytes % % Monocytes % % Eosinophils % % Basophils % % Neutrophils # (1.6-8.9) K/mcL Lymphocytes # (0.6-4.6) K/mcL Monocytes # (0.0-1.3) K/mcL Eosinophils # (0.0-0.6) K/mcL Basophils # (0.0-0.2) K/mcL PT 12.4 H (9.4-12.1) Seconds INR 1.1 APTT 31.1 (26.0-36.0) Seconds Sodium 138 (136-145) mEq/L Potassium 3.8 (3.5-4.5) mEq/L Chloride 108 (98-109) mEq/L Carbon Dioxide 23 (19-29) mEq/L BUN 26 (8-26) mg/dL Creatinine 1.64 H (0.72-1.25) mg/dL Est GFR ( Amer) 56 L (> 60) Est GFR (Non-Af Amer) 46 L (> 60) BUN/Creatinine Ratio 16 (6-26) Glucose 43 L (70-99) mg/dL POC Glucose (58-89) Calculated Osmolality 288 (280-300) Calcium 9.7 (8.6-10.8) mg/dL Total Bilirubin 0.2 (0.2-1.2) mg/dL AST 20 (5-34) Units/L ALT 18 (0-55) Units/L Alkaline Phosphatase 104 (38-126) Units/L Troponin I 0.25 H* (0-0.03) ng/mL Serum Total Protein 8.0 (6.0-8.3) g/dL Albumin 2.9 L (3.5-5.0) g/dL Globulin 5.1 H (2.4-3.5) g/dL Albumin/Globulin Ratio 0.6 L (1.1-2.2) Ur Specimen Adequacy Urine Color (Yellow) Urine Clarity (Clear) Urine pH (5.0-8.0) pH Units Ur Specific [place] (1.010-1.025) Urine Protein (Neg-Trace) mg/dL Urine Glucose (UA) (Normal) mg/dL Urine Ketones (Negative) mg/dL Urine Blood (Negative) Urine Nitrite (Negative) Urine Bilirubin (Negative) Urine Urobilinogen (Normal) mg/dL Ur Leukocyte Esterase (Negative) Urine Microscopic RBC (0-3) per hpf Urine Microscopic WBC (0-3) per hpf Ur Squamous Epith Cells (None-Few) per lpf Urine Bacteria (None-Few) per hpf Hyaline Casts (None-Few) per lpf Urine Opiates Screen (Scxfhf=075) ng/mL Ur Barbiturates Screen (Mmebxe=761) ng/mL Ur Phencyclidine Scrn (Cutoff=25) ng/mL Ur Amphetamines Screen (Xmrymx=8763) ng/mL U Benzodiazepines Scrn (Wuolxk=321) ng/mL Urine Cocaine Screen (Cutoff= 300) ng/mL U Marijuana (THC) Screen (Cutoff = 50) ng/mL 03/30/17 Range/Units 21:33 WBC (4.3-11.1) K/mcL RBC (4.19-5.50) M/mcL Hgb (12.9-16.9) g/dL Hct (37.5-50.1) % MCV (83.0-100.0) fL MCH (28.0-33.3) pg MCHC (31.6-35.5) g/dL RDW (11.5-14.5) % Plt Count (140-400) K/mcL MPV (9.4-12.4) fL Immature Gran % (0-4) % Seg Neutrophils % % Lymphocytes % % Monocytes % % Eosinophils % % Basophils % % Neutrophils # (1.6-8.9) K/mcL Lymphocytes # (0.6-4.6) K/mcL Monocytes # (0.0-1.3) K/mcL Eosinophils # (0.0-0.6) K/mcL Basophils # (0.0-0.2) K/mcL PT (9.4-12.1) Seconds INR APTT (26.0-36.0) Seconds Sodium (136-145) mEq/L Potassium (3.5-4.5) mEq/L Chloride (98-109) mEq/L Carbon Dioxide (19-29) mEq/L BUN (8-26) mg/dL Creatinine (0.72-1.25) mg/dL Est GFR ( Amer) (> 60) Est GFR (Non-Af Amer) (> 60) BUN/Creatinine Ratio (6-26) Glucose (70-99) mg/dL POC Glucose 208 H (58-89) Calculated Osmolality (280-300) Calcium (8.6-10.8) mg/dL Total Bilirubin (0.2-1.2) mg/dL AST (5-34) Units/L ALT (0-55) Units/L Alkaline Phosphatase (38-126) Units/L Troponin I (0-0.03) ng/mL Serum Total Protein (6.0-8.3) g/dL Albumin (3.5-5.0) g/dL Globulin (2.4-3.5) g/dL Albumin/Globulin Ratio (1.1-2.2) Ur Specimen Adequacy Urine Color (Yellow) Urine Clarity (Clear) Urine pH (5.0-8.0) pH Units Ur Specific [place] (1.010-1.025) Urine Protein (Neg-Trace) mg/dL Urine Glucose (UA) (Normal) mg/dL Urine Ketones (Negative) mg/dL Urine Blood (Negative) Urine Nitrite (Negative) Urine Bilirubin (Negative) Urine Urobilinogen (Normal) mg/dL Ur Leukocyte Esterase (Negative) Urine Microscopic RBC (0-3) per hpf Urine Microscopic WBC (0-3) per hpf Ur Squamous Epith Cells (None-Few) per lpf Urine Bacteria (None-Few) per hpf Hyaline Casts (None-Few) per lpf Urine Opiates Screen (Biapmr=262) ng/mL Ur Barbiturates Screen (Magquo=173) ng/mL Ur Phencyclidine Scrn (Cutoff=25) ng/mL Ur Amphetamines Screen (Qufwgy=6453) ng/mL U Benzodiazepines Scrn (Hplbik=593) ng/mL Urine Cocaine Screen (Cutoff= 300) ng/mL U Marijuana (THC) Screen (Cutoff = 50) ng/mL Attestation Statement - Attestation Attestation: I examined this patient and my medical decision-making was reviewed with the SENIOR RESEARCH ENGINEER/PA/Advanced Practice Nurse/Resident Physician. I agree with the documented findings, disposition and treatment plan as described except to the extent set forth below. [id number] time provided Patient appears sedated by the Valium at the time of my exam. I did review his labs and EKG with the level provider Srini. CT of his chest without IV contrast ordered because of his description of back pain. IV contrast not used due to his elevated creatinine and concern for contrast nephropathy
[2017-03-30] MEDS ORDERED: *HR* Dextrose 50 % in Water (Syg) 50 ML SYRINGE IVP ONE (21:30)
[2017-03-30] MEDS ORDERED: 0.9 % Sodium Chloride 1,000 ML ONE (21:41)
[2017-03-30] MEDS ORDERED: 0.9 % Sodium Chloride 1,000 ML IVC SCH (23:45)
[2017-03-30] MEDS ORDERED: Naloxone 0.4 MG/ML INJ IVP PRN (23:45)
[2017-03-30] MEDS ORDERED: Dextrose Gel 15 GM PO PRN ×2 (23:49)
[2017-03-30] MEDS ORDERED: *HR* Dextrose 50 % in Water (Syg) 50 ML SYRINGE IVP PRN (23:49)
[2017-03-30] MEDS ORDERED: D5% in Water 1,000 ML IVC PRN (23:49)
--- NOTE | 2017-03-30 23:53 | Internal Med History&Physical ---
Date of Encounter: 03/31/17 Time of Encounter: 00:05 Assessment and Plan (1) Syncope Current visit: Yes Status: Acute Possibly secondary to orthostatic hypotension, related to volume depletion versus cardiogenic. Treat with IV fluids. Check orthostatic vitals. obtain echocardiogram. UA, CXR and urine drug screen are negative. Qualifiers: Syncope type: unspecified Qualified Code(s): R55 - Syncope and collapse (2) Elevated troponin Current visit: Yes Status: Acute Patient has known history of coronary artery disease. Elevated troponin could be secondary to demand supply mismatch versus occlusive lesion. Will obtain echocardiogram and cardiology consult. (3) TROY (acute kidney injury) Current visit: Yes Status: Acute Possibly due to poor oral intake / volume depletion - treat with IV fluids and monitor renal function (4) Cellulitis and abscess of leg Current visit: Yes Status: Acute Emperically treat with IV vancomycin. Consider surgical / would care consult (5) Hypertension Current visit: Yes Status: Chronic Continue home medications Qualifiers: Hypertension type: essential hypertension Qualified Code(s): I10 - Essential (primary) hypertension (6) Hyperlipidemia Current visit: Yes Status: Chronic Continue home medications Qualifiers: Hyperlipidemia type: unspecified Qualified Code(s): E78.5 - Hyperlipidemia , unspecified (7) Diabetes Current visit: Yes Status: Chronic Start sliding scale insulin Qualifiers: Diabetes mellitus type: type 2 Diabetes mellitus complication status: with unspecified complications Diabetes mellitus retirement insulin use: with retirement use Qualified Code(s): E11.8 - Type 2 diabetes mellitus with unspecified complications; 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 transplanted heart: [place] heart Associated angina: angina presence unspecified Qualified Code(s): I25.10 - Atherosclerotic heart disease of [place] coronary artery without angina pectoris Internal Medicine - H&P: HPI Chief complaint: syncope Admitted From: Emergency Dept Plans for Post Hospital Care: Home History of present illness: Pt received diazepam in the ER and now is somnolent and not responsive to verbal stimuli. His girl friend is at the bedside and able to give clinical details. Mr. Hi is a 46 year old male with h/o Diabetes, CAD, HTN. 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 He apparently was c/ o feeling dizzy and light headed and apparently passed out while driving, on Friday. His girl friend took drove him home and after he ate food, he felt better. His girlfriend thinks that he has not been eating and drinking well and has poor apetite for the last week. Per the ER note, he presented to the ER with c/o "feeling like I am about to pass out." He also complained of back spasms he was given diazepam in the ER. He apparently reported h/o intermittent chest discomfort which he described as sharp. He denied h/o fever , chills, nausea, vomiting or abdominal pain. He also reported an open sore / infection to his left lower leg which she has been seen and treated at an urgent care, with bactrim but has not improved. He was evaluated in the emergency department and was given intravenous normal saline infusion. He was given the diazepam 5 mg IV for back spasms, which made him somnolent. Past Med Surg Social Fam HX - Past Medical History Medical history: coronary artery disease, diabetes, hepatitis, myocardial infarction Psychiatric history: depression - Past Surgical History Surgical History: angioplasty/stent, orthopedic, other - Social History Smoking Status: Current every day smoker Smokeless Tobacco Status: No Alcohol use: none Drug use: none - Family History Mother Family Member Ethnicity: Non- Living Status: Still Living Hx Family Cardiac Disorders: Yes (HTN, HLD) Hx Family Respiratory Disorders: No Hx Family Cancer: No Hx Family GI Disorders: Yes (Irritable bowel syndrome) Hx Family Endocrine Disorder: Yes Hx Family Neuromuscular Disorders: No Hx Family Neurologic Disorders: No Hx Family HEENT Disorders: No Hx Family Autoimmune Disorders: No Father Hx Family Cardiac Disorders: Yes (CAD s/p CABG) Internal Medicine - H&P: Meds Aspirin [Adult Low Dose Aspirin EC] 81 mg PO DAILY 12/14/15 [History] Clopidogrel [Plavix] 75 mg PO DAILY 12/14/15 [History] Metformin HCl [Metformin HCl ER] 1,000 mg PO DAILY 12/14/15 [History] Metoprolol Succinate 50 mg PO DAILY 12/14/15 [History] traZODone [TraZODone] 100 mg PO HS 12/14/15 [History] Baclofen 20 mg PO TID 05/16/16 [History] Pantoprazole Sodium [Protonix] 40 mg PO DAILY 05/16/16 [History] Gabapentin [Neurontin] 800 mg PO TID 01/04/17 [History] Nitroglycerin [Nitrostat] 0.4 mg SL AD PRN 01/04/17 [History] Albuterol Sulfate [Albuterol Inhaler] 2 puff IH Q4HR PRN #1 hfa.aer.ad 01/05/17 [Rx] Furosemide [Lasix] 40 mg PO DAILY 03/05/17 [History] Insulin ASPART [Novolog Flexpen] 0 unit SQ TID 03/05/17 [History] Insulin Glargine,Hum.rec.anlog [Lantus Solostar] 60 unit SQ BID 03/05/17 [ History] Potassium Chloride [Klor-Con 10] 10 meq PO DAILY 03/05/17 [History] Atorvastatin [Lipitor] 80 mg PO HS #30 tablet 03/07/17 [Rx] Blood Sugar Diagnostic [Test Strips] 1 each TID #90 strip 03/07/17 [Rx] Isosorbide MONOnitrate (24 HR) [Imdur] 30 mg PO DAILY #30 tab.er.24h 03/07/17 [ Rx] Lancets [Blood Lancets] 1 each MC TID #90 each 03/07/17 [Rx] Lisinopril [Zestril] 20 mg PO DAILY #30 tablet 03/07/17 [Rx] Pen Needle, Diabetic [Pen Needle] 1 each 5XD #150 dis.needle 03/07/17 [Rx] Sulfamethoxazole/Trimeth DS [Bactrim DS] 1 each PO BID #10 tablet 03/07/17 [Rx] amLODIPine [Norvasc] 10 mg PO DAILY #30 tablet 03/07/17 [Rx] Allergies morphine Adverse Reaction (Verified 03/05/17 19:36) Agitated ROS unobtainable: due to mental status - Constitutional Vitals: Temp Pulse Resp BP Pulse Ox 98.1 F 64 18 134/88 100 03/30/17 22:50 03/30/17 22:15 03/30/17 22:50 03/30/17 22:50 03/30/17 22:15 Exam: General: Somnulent and not responsive to verbal stimuli and mild noxious stimuli. Not in acute distress at the time of my evaluation HEENT: Oral mucosa is moist. No conjunctival palor or scleral icterus Neck: No obvious neck swellings Lungs: Clear to auscultation Cardiac: Regular rate and rhythm. No significant murmurs Abdomen: Soft, non tender. Bowel sounds present Genitourinary: No ibarra catheter Neurological: Somulent and not responsive to verbal stimuli Psych: Somulent and not responsive to verbal stimuli Extremities: There is erythema and open wound on the lateral aspect of the left leg. No significant drainage. Skin: No generalized rash Internal Med - H&P Results - Labs CBC & Chem 7: 03/31/17 00:29 03/31/17 00:29 - EKG Data -: EKG Interpreted by Myself EKG shows normal: sinus rhythm - EKG Data EKG comments: Nonspecific ST-T changes 03/31/17 06:41 - Impressions ITS Impressions Chest X-Ray 03/30/17 19:32 IMPRESSION: No acute process. D/ / Rea Guerrero MD / Rea Guerrero MD Interpreting Provider: Rea Guerrero MD Chest CT 03/30/17 20:28 IMPRESSION: 1. Mild bibasilar atelectasis without acute airspace consolidation. 2. Stable 4.2 cm fusiform aneurysm of the ascending aorta. D/ / 03/30/2017 22:08:29 Miles Don MD / [facility] Interpreting Provider: Miles Don MD Head CT 03/30/17 20:29 IMPRESSION: No acute intracranial abnormality. D/ / Rea Guerrero MD / Rea Guerrero MD Interpreting Provider: Rea Guerrero MD
[2017-03-31 00:12] LABS: Amphetamine Screen,Urine Negative ng/mL (Cutoff=1000); Barbiturate Screen,Urine Negative ng/mL (Cutoff=200); Benzodiazepines Screen,Urine Negative ng/mL (Cutoff=200); Cannabinoid Screen,Urine Negative ng/mL (Cutoff = 50); Cocaine Screen,Urine Negative ng/mL (Cutoff= 300); Opiate Screen,Urine Negative ng/mL (Cutoff=300); Phencyclidine Screen,Urine Negative ng/mL (Cutoff=25)
[2017-03-31] MEDS: Vancomycin 1,250 MG in D5% in Water 250 ML IVPB SCH ×3 (00:20→23:09)
[2017-03-31 00:38] LABS: Basophils % 0.3 %; Eosinophils # 0.1 K/mcL (0.0-0.6); Eosinophils % 0.7 %; Hematocrit 32.2 % (37.5-50.1); Hemoglobin 10.8 g/dL (12.9-16.9); Immature Granulocytes % 0.3 % (0-4); Immature Platelets 2.5 % (1.1-6.1); Lymphocytes # 1.4 K/mcL (0.6-4.6); Lymphocytes % 20.7 %; Mean Corpuscular HGB Conc 33.5 g/dL (31.6-35.5); Mean Corpuscular Hemoglobin 29.9 pg (28.0-33.3); Mean Corpuscular Volume 89.2 fL (83.0-100.0); Mean Platelet Volume 9.5 fL (9.4-12.4); Monocytes # 0.5 K/mcL (0.0-1.3); Monocytes % 6.9 %; Neutrophils # 4.8 K/mcL (1.6-8.9); Platelet Count 212 K/mcL (140-400); Red Blood Count 3.61 M/mcL (4.19-5.50); Red Cell Distribution Width 13.1 % (11.5-14.5); Segmented Neutrophils % 71.1 %
[2017-03-31 00:52] LABS: BUN/Creatinine Ratio 20 (6-26); Blood Urea Nitrogen 23 mg/dL (8-26); Calcium 8.7 mg/dL (8.6-10.8); Carbon Dioxide 23 mEq/L (19-29); Chloride 111 mEq/L (98-109); Chol/HDL Ratio 8.3 (0-4.9); Cholesterol 157 mg/dL (< 200); Glucose 84 mg/dL (70-99); HDL Cholesterol 19 mg/dL (40-59); LDL Cholesterol,Calculated 98 mg/dL (0-99); Magnesium 1.8 mg/dL (1.6-2.6); Osmolality,Calculated 289 (280-300); Potassium 4.1 mEq/L (3.5-4.5); Sodium 138 mEq/L (136-145); Triglycerides 198 mg/dL (< 150); eGFR For African Americans > 60 (> 60); eGFR For Non-African Americans > 60 (> 60)
[2017-03-31] MEDS: Aspirin 81 MG TAB.CHEW PO SCH (09:40)
[2017-03-31] MEDS: Lactobacillus 1 EACH CAP.SPRINK PO SCH ×2 (09:40→20:13)
[2017-03-31] MEDS: *HR* Enoxaparin 40 MG/0.4 ML SYRINGE SQ SCH (09:41)
--- NOTE | 2017-03-31 10:43 | Cardiology Consult Note ---
<Markell Ford R - Last Filed: 03/31/17 12:09> Date of Encounter: 03/31/17 Time of Encounter: 10:23 Assessment and Plan (1) Syncope Current Visit: Yes Status: Acute Pt reports syncopal event yesterday while driving. Reports dizziness/lightheadedness over the past month. Orthostatic vitals positive--BP was 173/102 lying flat, then 139/98 to standing. Pt was on CCB, BB, Imdur, ALEJANDRO-I at home. Will decrease antihypertensives--decrease Imdur to 15mg, Lisinopril to 2.5mg, Toprol to 12.5mg. Stop Norvasc. Recent echo 02/2017 EF 50%, moderate diastolic dysfunction. Repeat limited echo to assess EF. Continue to follow. Qualifiers: Syncope type: unspecified Qualified Code(s): R55 - Syncope and collapse (2) Orthostatic hypotension Current Visit: Yes Status: Acute As above, will decrease antihypertensive regimen. (3) Coronary artery disease Current Visit: Yes Status: Chronic Known CAD and multiple PCI. LHC 02/2017 showed mild-moderate 3 vessel disease, Jailed PDA branch with focal dissection. Patent LAD, Diag, and RCA stents. Continue ASA, Plavix, Statin, BB. Qualifiers: Coronary Disease-Associated Artery/Lesion type: [place] artery [place] vs. transplanted heart: [place] heart Associated angina: angina presence unspecified Qualified Code(s): I25.10 - Atherosclerotic heart disease of [place] coronary artery without angina pectoris (4) Elevated troponin Current Visit: Yes Status: Acute Troponin 0.25, 0.21, 0.14 in setting of syncopal event and TROY on admission ( now resolved). Pt denies chest pain. Nondiagnostic for ACS. Recent C mild-moderate 3 vessel disease, nothing amendable to PCI. Check limited echo. EF 02/2017 EF 50%. Discussion w patient/family: The assessment and plan as outlined above was discussed with the patient and/or family members who expressed understanding and agreement. All questions were answered. Thank you for involving us in the care of your patient. Please call with any questions. I will discuss all the above with Dr. Landeros and make changes as necessary. History of Present Illness Consult date: 03/31/17 Requesting physician: Gray Holt Consult reason: syncope, CAD Chief complaint: syncope History of present illness: Mr. Hi is a 46 year old male with a PMH of DM type 2, CAD, HTN, AL with PCI/ JANNA, and 1 ppd smoker who presented to the hospital 03/30 with reports of syncopal episode while driving. Patient states that girlfriend screamed during this event and that is what woke him. Patient reports feeling nauseated, dizzy , and lightheaded most of the day prior to the syncopal event. Patient denies ever having a syncopal event previously. States that he has been feeling lightheaded over the past few months. Patient reports a headache this am but denies chest pain, dyspnea, or edema. Head CT done on admission was negative. Patient reports a leg abscess which has been treated by urgent care that does not seem to be improving. Previous cardiac testing: [facility] 03/06/17: Mild-moderate 3 vessel disease, Jailed PDA branch with focal dissection. Patent LAD, Diag, and RCA stents. 20% stenosis proximal LAD 20% stenosis mid LAD patent diagonal x 1 stent 20% stenosis proximal circumflex with no thrombus present mid-distal RCA with patent stent, 40% stenosis distal RCA small jailed PDA 90% stenosis with LUIS E flow 3 and focal dissection in the proximal portion of the vessel _ Echocardiogram 03/06/17: LVEF 50% moderate LVDD segmental LVSD moderate dilated right atrium mild-moderate TR severe pulmonary HTN small inferolateral pericardial effusion with no evidence of tamponade mild inferior and basal wilson akinetic, all other normal wall motion Past Med Surg Social Fam HX - Past Medical History Medical history: coronary artery disease, diabetes, hepatitis, myocardial infarction Psychiatric history: depression - Past Surgical History Surgical History: angioplasty/stent, orthopedic, other - Social History Smoking Status: Current every day smoker Smokeless Tobacco Status: No Alcohol use: none Drug use: none - Family History Mother Family Member Ethnicity: Non- Living Status: Still Living Hx Family Cardiac Disorders: Yes (HTN, HLD) Hx Family Respiratory Disorders: No Hx Family Cancer: No Hx Family GI Disorders: Yes (Irritable bowel syndrome) Hx Family Endocrine Disorder: Yes Hx Family Neuromuscular Disorders: No Hx Family Neurologic Disorders: No Hx Family HEENT Disorders: No Hx Family Autoimmune Disorders: No Father Hx Family Cardiac Disorders: Yes (CAD s/p CABG) Medications and Allergies Aspirin [Adult Low Dose Aspirin EC] 81 mg PO DAILY 12/14/15 [History] Clopidogrel [Plavix] 75 mg PO DAILY 12/14/15 [History] Metformin HCl [Metformin HCl ER] 1,000 mg PO DAILY 12/14/15 [History] Metoprolol Succinate 50 mg PO DAILY 12/14/15 [History] traZODone [TraZODone] 100 mg PO HS 12/14/15 [History] Baclofen 20 mg PO TID 05/16/16 [History] Pantoprazole Sodium [Protonix] 40 mg PO DAILY 05/16/16 [History] Gabapentin [Neurontin] 800 mg PO TID 01/04/17 [History] Nitroglycerin [Nitrostat] 0.4 mg SL AD PRN 01/04/17 [History] Albuterol Sulfate [Albuterol Inhaler] 2 puff IH Q4HR PRN #1 hfa.aer.ad 01/05/17 [Rx] Furosemide [Lasix] 40 mg PO DAILY 03/05/17 [History] Insulin ASPART [Novolog Flexpen] 0 unit SQ TID 03/05/17 [History] Insulin Glargine,Hum.rec.anlog [Lantus Solostar] 70 unit SQ BID 03/05/17 [ History] Potassium Chloride [Klor-Con 10] 10 meq PO DAILY 03/05/17 [History] Atorvastatin [Lipitor] 80 mg PO HS #30 tablet 03/07/17 [Rx] Isosorbide MONOnitrate (24 HR) [Imdur] 30 mg PO DAILY #30 tab.er.24h 03/07/17 [ Rx] Lisinopril [Zestril] 20 mg PO DAILY #30 tablet 03/07/17 [Rx] amLODIPine [Norvasc] 10 mg PO DAILY #30 tablet 03/07/17 [Rx] Allergies morphine Adverse Reaction (Verified 03/05/17 19:36) Agitated All Systems Review: A 10-system review of systems was performed and is negative for pertinent findings except as documented above in the HPI. - Cardiovascular Cardiovascular: lightheadedness, syncope - Neurological Neurological: syncope Physical Examination Vital Signs, Last 4 Hours Temp Pulse Resp BP BP BP BP 03/31/17 09:53 173/102 152/105 139/98 03/31/17 07:43 97.8 F 67 16 169/99 Pulse Ox 03/31/17 09:53 03/31/17 07:43 99 Vital Signs Temp Pulse Resp BP BP BP BP 03/31/17 09:53 173/102 152/105 139/98 03/31/17 07:43 97.8 F 67 16 169/99 03/31/17 04:00 97.5 F L 65 18 136/94 03/30/17 23:49 93.9 F L 50 16 127/87 03/30/17 22:50 98.1 F 18 134/88 03/30/17 22:15 64 18 120/81 03/30/17 21:55 64 18 118/80 03/30/17 21:46 82 20 126/82 03/30/17 21:28 71 20 112/72 03/30/17 20:42 85 18 150/78 03/30/17 19:44 81 20 123/79 03/30/17 19:12 97.5 F L 86 18 111/76 Pulse Ox 03/31/17 09:53 03/31/17 07:43 99 03/31/17 04:00 96 03/30/17 23:49 99 03/30/17 22:50 03/30/17 22:15 100 03/30/17 21:55 97 03/30/17 21:46 03/30/17 21:28 96 03/30/17 20:42 96 03/30/17 19:44 97 03/30/17 19:12 99 Intake and Output 03/30/17 03/31/17 03/31/17 23:59 07:59 15:59 Intake Total 1000 / 1000 0 / 0 Output Total 0 / 0 0 / 0 Balance 1000 / 1000 0 / 0 Intake: IV Fluids 1000 / 1000 0.9 % Sodium Chloride 1, 1000 / 1000 000 ML @ 3750 mls/hr IVC .Q16M ONE Rx#:[id number] Oral 0 / 0 0 / 0 Output: Urine 0 / 0 0 / 0 Other: Stool Size Small Stool Consistency soft # Bowel Movements 1 Weight 85.366 kg Blood Glucose* 89 302 General: Conversant, No Apparent Distress HEENT: Atraumatic, Normocephaly, Mucus Membranes Moist Neck: No JVD, Normal carotid pulses Cardiac: Reg Rate and Rhythm, Normal S1 and S2, No Murmur Lungs: Normal Breath Sounds, No Wheeze, Rales, Rhonchi Neuro: Alert and responsive, No focal deficits noted Abdomen: Soft, Non-Tender Skin: No rashes noted on visualized skin Musculoskeletal: No Chest Wall Tenderness Extremities: No Clubbing Results 03/31/17 00:29 03/31/17 00:29 Lab Results 03/31/17 03/31/17 03/31/17 00:29 00:29 00:29 WBC 6.7 Hgb 10.8 L D Hct 32.2 L Plt Count 212 Sodium 138 Potassium 4.1 Chloride 111 H Carbon Dioxide 23 BUN 23 Creatinine 1.14 Glucose 84 Calcium 8.7 Magnesium 1.8 Troponin I 0.21 H* 03/31/17 05:05 WBC Hgb Hct Plt Count Sodium Potassium Chloride Carbon Dioxide BUN Creatinine Glucose Calcium Magnesium Troponin I 0.14 H* Short CBC 03/31/17 03/30/17 Range/Units 00:29 19:48 WBC 6.7 7.2 (4.3-11.1) K/mcL Hgb 10.8 L D 12.3 L (12.9-16.9) g/dL Hct 32.2 L 35.3 L (37.5-50.1) % Plt Count 212 262 (140-400) K/mcL Neutrophils # 4.8 4.1 (1.6-8.9) K/mcL BMP 03/31/17 03/30/17 Range/Units 00:29 19:48 Sodium 138 138 (136-145) mEq/L Potassium 4.1 3.8 (3.5-4.5) mEq/L Chloride 111 H 108 (98-109) mEq/L Carbon Dioxide 23 23 (19-29) mEq/L BUN 23 26 (8-26) mg/dL Creatinine 1.14 1.64 H (0.72-1.25) mg/dL Glucose 84 43 L (70-99) mg/dL Calcium 8.7 9.7 (8.6-10.8) mg/dL Cardiac Enzymes 03/31/17 03/31/17 03/30/17 Range/Units 05:05 00:29 19:48 Troponin I 0.14 H* 0.21 H* 0.25 H* (0-0.03) ng/mL Liver Function 03/30/17 Range/Units 19:48 Total Bilirubin 0.2 (0.2-1.2) mg/dL AST 20 (5-34) Units/L ALT 18 (0-55) Units/L Alkaline Phosphatase 104 (38-126) Units/L Albumin 2.9 L (3.5-5.0) g/dL Urine 03/30/17 Range/Units 19:45 Urine Color Yellow (Yellow) Urine Clarity Slightly Hazy (Clear) Urine pH 5.5 (5.0-8.0) pH Units Ur Specific [place] 1.030 H (1.010-1.025) Urine Protein >=300 H (Neg-Trace) mg/dL Urine Glucose (UA) >=1000 H (Normal) mg/dL Impressions Chest X-Ray 03/30/17 19:32 IMPRESSION: No acute process. D/ / Rea Guerrero MD / Rea Guerrero MD Interpreting Provider: Rea Guerrero MD Chest CT 03/30/17 20:28 IMPRESSION: 1. Mild bibasilar atelectasis without acute airspace consolidation. 2. Stable 4.2 cm fusiform aneurysm of the ascending aorta. D/ / 03/30/2017 22:08:29 Miles Don MD / lgr Interpreting Provider: Miles Don MD Head CT 03/30/17 20:29 IMPRESSION: No acute intracranial abnormality. D/ / Rea Guerrero MD / Rea Guerrero MD Interpreting Provider: Rea Guerrero MD Active Medications Albuterol/Ipratropium (Duoneb) 3 ml IH [id number] PRN; Protocol PRN Reason: Shortness Of Breath/Wheezing Stop: 09/30/17 10:59 Aspirin (Aspirin) 81 mg PO DAILY BERNABE Stop: 09/30/17 09:01 Last Admin: 03/31/17 09:40 Dose: 81 mg Atorvastatin Calcium (Lipitor) 80 mg PO HS BERNABE Stop: 09/30/17 21:01 Clopidogrel Bisulfate (Plavix) 75 mg PO DAILY [facility] Stop: 10/01/17 09:01 Dextrose/Water (Dextrose 50% (Syg)) 25 ml IVP AD PRN PRN Reason: Hypoglycemia Stop: 09/29/17 23:50 Enoxaparin Sodium (Lovenox) 40 mg SQ 0600 BERNABE PRN Reason: Protocol Stop: 09/30/17 09:01 Last Admin: 03/31/17 09:41 Dose: 40 mg Glucagon (Glucagen) 1 mg IM ONCE PRN PRN Reason: Hypoglycemia Stop: 09/29/17 23:50 Glucose (Gluctose) 15 gm PO ONCE PRN PRN Reason: Hypoglycemia Stop: 09/29/17 23:50 Glucose (Gluctose) 30 gm PO ONCE PRN PRN Reason: Hypoglycemia Stop: 09/29/17 23:50 Dextrose (Dextrose 5%) 1,000 mls @ 100 mls/hr IVC .Q10H PRN PRN Reason: HYPOGLYCEMIA Stop: 09/29/17 23:50 Vancomycin HCl 1,250 mg/ (Dextrose) 250 mls @ 167 mls/hr IVPB Q12H BERNABE PRN Reason: Protocol Stop: 09/30/17 00:06 Last Admin: 03/31/17 00:20 Dose: 167 mls/hr Ampicillin Sodium/Sulbactam Sodium 3,000 mg/ Sodium Chloride 100 mls @ 200 mls/ hr IVPB Q6HR [facility] Stop: 09/30/17 12:01 Lactobacillus Acidophilus/Rhamnosus (Culturelle) 1 each PO BID [facility] Stop: 09/30/17 09:01 Last Admin: 03/31/17 09:40 Dose: 1 each Naloxone HCl (Narcan) 0.4 mg IVP Q2MIN PRN PRN Reason: Opioid Reversal Stop: 09/29/17 23:46 Nitroglycerin (Nitroglycerin) 0.4 mg SL Q5MIN PRN PRN Reason: Chest Pain Stop: 09/29/17 20:29 - Imaging and Cardiology Chest Xray: report reviewed Echo: report reviewed Cardiac cath: report reviewed - EKG Interpretation EKG results cardiology: personally reviewed Consult Discharge Plan - Plan Referrals: Richard Monte DO [Primary Care Provider] - <Maddy Landeros - Last Filed: 03/31/17 16:09> Date of Encounter: 03/31/17 Assessment and Plan Discussion w patient/family: The assessment and plan as outlined above was discussed with the patient and/or family members who expressed understanding and agreement. All questions were answered. Thank you for involving us in the care of your patient. Please call with any questions. History of Present Illness History of present illness: Mr. Hi is a 46 year old male All Systems Review: A 10-system review of systems was performed and is negative for pertinent findings except as documented above in the HPI. Physical Examination Vital Signs, Last 4 Hours Temp Pulse Resp BP Pulse Ox 03/31/17 15:24 98.2 F 69 16 163/112 97 Results 03/31/17 00:29 03/31/17 00:29 Lab Results 03/31/17 03/31/17 03/31/17 00:29 00:29 00:29 WBC 6.7 Hgb 10.8 L D Hct 32.2 L Plt Count 212 Sodium 138 Potassium 4.1 Chloride 111 H Carbon Dioxide 23 BUN 23 Creatinine 1.14 Glucose 84 Calcium 8.7 Magnesium 1.8 Troponin I 0.21 H* 03/31/17 05:05 WBC Hgb Hct Plt Count Sodium Potassium Chloride Carbon Dioxide BUN Creatinine Glucose Calcium Magnesium Troponin I 0.14 H* - Attending Attestation I examined this patient and my medical decision-making was reviewed with the [employer] CR[employer] OPERATOR/PA/Advanced Practice Nurse/Resident Physician. I agree with the documented findings, disposition and treatment plan. Mr. Hi presents with a syncopal event while driving. Orthostatic VS on admit were abnormal. All his medications that affect BP were stopped. We will re-introduce metoprolol, imdur and lisinopril at very low doses. It also appears that he may have been dry as demonstrated by ARF on admission. 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 He doesn't appear to be staying well hydrated. Otherwise, etiology of troponin elevation is unclear in setting of ARF. He denies having chest pain. Recently underwent LHC in which PCI was not recommended. He also has not demonstrated concerning dysrhythmia on telemetry. Recommend continuing antiplatelet therapy, statin for CAD and reintroducing his cardiac medications. Continue telemetry and consider outpatient monitor. Check limited echo.
[2017-03-31] MEDS ORDERED: Ipratropium/Albuterol Neb 3 ML IH PRN (10:58)
[2017-03-31] MEDS: Ampicillin/Sulbactam 3,000 MG in 0.9 % Sodium Chloride Mini Bag 100 ML IVPB SCH ×3 (12:34→23:09)
[2017-03-31] MEDS: Metoprolol XL (24 HR) Succ 25 MG TAB.ER.24H PO SCH (13:13)
[2017-03-31] MEDS: Isosorbide MONOnitrate (24 HR) 30 MG TAB.ER.24H PO SCH (13:13)
--- NOTE | 2017-03-31 13:45 | Internal Med Progress Note ---
<Hussein Atkins - Last Filed: 03/31/17 13:31> Date of Encounter: 03/31/17 Time of Encounter: 10:15 - Assessment and plan (1) Orthostatic hypotension Current Visit: Yes Status: Acute Assessment and plan: Patient reports syncope, or presyncope, prior to presentation to the hospital. Found to have positive orthostatic vitals, patient's girlfriend describes decreased by mouth in the last week, acute kidney injury (improved with fluids) , and high dosages of antihypertensive medications. Likely patient syncope multifactorial basis. Mental status has improved somewhat though patient reports still being "groggy." Cardiology has decreased his antihypertensive medications, patient received 4 L IV fluids, and infection is being treated with Unasyn and vancomycin. Continue to monitor patient vitals with regular blood pressure measurements We will stop patient's supplemental fluids as mental status improved enough for him to take PO Cardiology is following and appreciate recommendations for continued management/ care Lower extremity infected ulcer being treated with Unasyn and vancomycin Wound care consult placed (2) Cellulitis and abscess of leg Current Visit: Yes Status: Acute Assessment and plan: Unstageable ulcer present on lateral aspect of patient left lower leg. The surrounding area is erythematous with larger area of increased warmth and left lower extremity. Patient reports he has been to [place] recently and received antibiotics to assist. We will continue patient Unasyn Continue vancomycin We will consult wound care for recommendations in dressing and assess whether surgical involvement may be necessary (3) Hypertension Current Visit: Yes Status: Chronic Assessment and plan: Patient has known history of hypertension and takes several blood pressure medications at home. His use of blood pressure medications could be contributing to his syncopal event earlier today. He normally takes 10 mg amlodipine daily, 50 mg metoprolol succinate daily, and 20 mg lisinopril daily. Patient is hypertensive, but does have positive orthostatic vitals. Cardiology is following and have decreased his dosages of blood pressure medications. Cardiology is following and appreciate recommendations for continued management/ care Lisinopril at 2.5 mg daily Metoprolol succinate at 12.5 mg daily Qualifiers: Hypertension type: essential hypertension Qualified Code(s): I10 - Essential (primary) hypertension (4) TROY (acute kidney injury) Current Visit: No Status: Acute Assessment and plan: Patient acute kidney injury likely due to dehydration from recent decreased by mouth for the last week. Patient's acute kidney injury and mental status appeared to improve after 3 L of normal saline. Patient was found to be orthostatic positive, this could represent dehydration as well as antihypertensive usage. Continue to monitor kidney function with daily chemistry We will hold additional fluids for right now as patient mental status improved and he can take PO (5) Elevated troponin Current Visit: Yes Status: Acute Assessment and plan: Patient troponins admission were 0.25 has since trended down to 0.14. Patient elevated troponins likely due to demand ischemia given likely syncope, dehydration and hypoglycemia at presentation. Does not appear to be ACS at this time Cardiology is consulted, appreciate recommendations for continuing management/ care Continue to monitor via telemetry (6) Diabetes Current Visit: Yes Status: Chronic Assessment and plan: Patient has history of diabetes mellitus with history of insulin usage. At presentation blood sugar was 43. 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 Cardiology has been consulted, appreciate recommendations for continued management/care Continue home aspirin, Plavix, statin, beta lula Qualifiers: Coronary Disease-Associated Artery/Lesion type: [place] artery [place] vs. transplanted heart: [place] heart Associated angina: angina presence unspecified Qualified Code(s): I25.10 - Atherosclerotic heart disease of [place] coronary artery without angina pectoris (8) History of noncompliance with medical treatment Current Visit: No Status: Chronic (9) DVT prophylaxis Current Visit: No Status: Acute Assessment and plan: 40 mg Lovenox subcutaneous daily - Subjective Interval history: Patient reports he feels somewhat improved from yesterday when he presented, he does report that he still feeling a little bit "groggy." He denies chest pain, shortness breath, or chills. He does report that he had fever and diaphoresis last night. He states she still has continued pain in his left lower extremity where he has the wound. - Constitutional Vitals: Temp Pulse Resp BP Pulse Ox 98 F 67 16 176/105 98 03/31/17 11:32 03/31/17 11:32 03/31/17 11:32 03/31/17 11:32 03/31/17 11:32 Exam: General: Cooperative, pleasant, no acute distress, alert and oriented 3, answers questions appropriately HEENT: Normocephalic, atraumatic, neck supple, trachea midline, sclera anicteric , PERRL, oral mucosa moist, no orophargeal erythema or exudates Respiratory: No accessory muscle usage, clear to auscultation bilaterally, no wheezes/rhonchi/rales appreciated Cardiovascular: Regular rate and rhythm, S1 and S2 present, no murmurs/rubs/ gallops/clicks appreciated GI/abdominal: Nondistended, nontender, soft, normal bowel sounds, no peritoneal signs Extremities: No calf tenderness, noncyanotic, no pedal edema appreciated, warm, lower extremity pulses palpable and symmetrical, increased warmth and left lower extremity, unstageable ulcer on lateral aspect of right lower extremity measuring approximately 2-1/2 cm in diameter, parous of eschar around site, central area of sloughed skin, erythema and area immediately surrounding ulcer Neurological: Alert and oriented 3, no facial droop, no focal deficits Skin: Dry, intact, normal color Internal Medicine: Result - Labs CBC & Chem 7: 03/31/17 00:29 03/31/17 00:29 Labs: Short CBC 03/31/17 Range/Units 00:29 WBC 6.7 (4.3-11.1) K/mcL Hgb 10.8 L D (12.9-16.9) g/dL Hct 32.2 L (37.5-50.1) % Plt Count 212 (140-400) K/mcL Neutrophils # 4.8 (1.6-8.9) K/mcL BMP 03/31/17 00:29 Sodium 138 Potassium 4.1 Chloride 111 H Carbon Dioxide 23 BUN 23 Creatinine 1.14 Glucose 84 Calcium 8.7 Cardiac Enzymes 03/31/17 03/31/17 Range/Units 00:29 05:05 Troponin I 0.21 H* 0.14 H* (0-0.03) ng/mL - ABG Interpretation ABG results: PT/INR, D-dimer PT 12.4 Seconds (9.4-12.1) H 03/30/17 19:48 Consult Discharge Plan - Plan Referrals: Richard Monte DO [Primary Care Provider] - <DrissCristina E - Last Filed: 03/31/17 16:43> Date of Encounter: 03/31/17 - Constitutional Vitals: Temp Pulse Resp BP Pulse Ox 98.2 F 69 16 163/112 97 03/31/17 15:24 03/31/17 15:24 03/31/17 15:24 03/31/17 15:24 03/31/17 15:24 Internal Medicine: Result - Labs CBC & Chem 7: 03/31/17 00:29 03/31/17 00:29 Labs: Short CBC 03/31/17 Range/Units 00:29 WBC 6.7 (4.3-11.1) K/mcL Hgb 10.8 L D (12.9-16.9) g/dL Hct 32.2 L (37.5-50.1) % Plt Count 212 (140-400) K/mcL Neutrophils # 4.8 (1.6-8.9) K/mcL BMP 03/31/17 00:29 Sodium 138 Potassium 4.1 Chloride 111 H Carbon Dioxide 23 BUN 23 Creatinine 1.14 Glucose 84 Calcium 8.7 Cardiac Enzymes 03/31/17 03/31/17 Range/Units 00:29 05:05 Troponin I 0.21 H* 0.14 H* (0-0.03) ng/mL - ABG Interpretation ABG results: PT/INR, D-dimer PT 12.4 Seconds (9.4-12.1) H 03/30/17 19:48 - Attending Attestation I examined this patient and reviewed laboratory, imaging and all diagnostic data. My medical decision-making was reviewed with Dr Hussein Atkins - Resident Physician. I agree with the documented findings, disposition and treatment plan as described above with the following additions.
[2017-03-31] MEDS ORDERED: *HR* LORazepam 2 MG/ML VIAL IVP PRN (17:07)
[2017-03-31] MEDS: Baclofen 10 MG TABLET PO SCH ×2 (17:35→20:16)
[2017-03-31] MEDS: Insulin LISPRO 300 UNITS/3 ML VIAL SQ SCH (17:41)
--- NOTE | 2017-03-31 17:58 | Electrocardiograph Report ---
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
--- NOTE | 2017-03-31 17:58 | Electrocardiograph Report ---
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
[2017-03-31] MEDS: Gabapentin 400 MG CAPSULE PO SCH (20:13)
[2017-03-31] MEDS: *HR* OxyCODONE/APAP 5/325 TABLET PO PRN (20:15)
[2017-03-31] MEDS ORDERED: traZODone 50 MG TABLET PO SCH (21:00)
[2017-03-31] MEDS ORDERED: Insulin LISPRO 300 UNITS/3 ML VIAL SQ SCH (21:00)
[2017-04-01 04:54] LABS: Basophils % 0.8 %; Eosinophils # 0.1 K/mcL (0.0-0.6); Eosinophils % 2.3 %; Hematocrit 31.2 % (37.5-50.1); Hemoglobin 10.8 g/dL (12.9-16.9); Immature Granulocytes % 0.2 % (0-4); Lymphocytes # 1.8 K/mcL (0.6-4.6); Lymphocytes % 36.8 %; Mean Corpuscular HGB Conc 34.6 g/dL (31.6-35.5); Mean Corpuscular Hemoglobin 30.6 pg (28.0-33.3); Mean Corpuscular Volume 88.4 fL (83.0-100.0); Mean Platelet Volume 10.4 fL (9.4-12.4); Monocytes # 0.3 K/mcL (0.0-1.3); Monocytes % 5.6 %; Neutrophils # 2.6 K/mcL (1.6-8.9); Platelet Count 190 K/mcL (140-400); Red Blood Count 3.53 M/mcL (4.19-5.50); Red Cell Distribution Width 13.2 % (11.5-14.5); Segmented Neutrophils % 54.3 %
[2017-04-01 05:09] LABS: BUN/Creatinine Ratio 17 (6-26); Blood Urea Nitrogen 20 mg/dL (8-26); Calcium 8.3 mg/dL (8.6-10.8); Carbon Dioxide 24 mEq/L (19-29); Chloride 108 mEq/L (98-109); Glucose 337 mg/dL (70-99); Osmolality,Calculated 300 (280-300); Sodium 137 mEq/L (136-145); eGFR For African Americans > 60 (> 60); eGFR For Non-African Americans > 60 (> 60)
[2017-04-01] MEDS: *HR* Enoxaparin 40 MG/0.4 ML SYRINGE SQ SCH (05:27)
[2017-04-01] MEDS: Ampicillin/Sulbactam 3,000 MG in 0.9 % Sodium Chloride Mini Bag 100 ML IVPB SCH ×2 (05:28→12:12)
[2017-04-01] MEDS: *HR* OxyCODONE/APAP 5/325 TABLET PO PRN (05:33)
[2017-04-01] MEDS: Baclofen 10 MG TABLET PO SCH (09:05)
[2017-04-01] MEDS: Gabapentin 400 MG CAPSULE PO SCH (09:06)
[2017-04-01] MEDS: Isosorbide MONOnitrate (24 HR) 30 MG TAB.ER.24H PO SCH (09:06)
[2017-04-01] MEDS: Lactobacillus 1 EACH CAP.SPRINK PO SCH (09:06)
[2017-04-01] MEDS: Aspirin 81 MG TAB.CHEW PO SCH (09:07)
[2017-04-01] MEDS: Metoprolol XL (24 HR) Succ 25 MG TAB.ER.24H PO SCH (09:07)
[2017-04-01] MEDS: Insulin LISPRO 300 UNITS/3 ML VIAL SQ SCH ×2 (09:08→12:18)
[2017-04-01] MEDS ORDERED: Metoprolol XL (24 HR) Succ 25 MG TAB.ER.24H PO ONE (10:39)
--- NOTE | 2017-04-01 12:10 | Cardiology Progress Note ---
Date of Encounter: 04/01/17 Time of Encounter: 12:08 Assessment and Plan (1) Syncope Current Visit: Yes Status: Acute Pt reports syncopal event 2 days ago while driving. Reports dizziness/lightheadedness over the past month. Orthostatic vitals positive yesterday and today. Today BP went from 162/105 lying to 141/91 standing. Pt was on CCB, BB, Imdur, ALEJANDRO-I at home. Decreased antihypertensives--decreased Imdur to 15mg, Lisinopril to 2.5mg, Toprol to 12.5mg. Stopped Norvasc. Will increase Toprol XL to 25mg daily. Recommend hydration, IV while inpt and increase PO hydration as outpt. Limited echo shows EF mildly reduced at 45%. Echo last month EF 50%. LHC last month with nothing amendable to PCI. Cardiology is signing off. Reconsult PRN. Follow-up as outpt. Qualifiers: Syncope type: unspecified Qualified Code(s): R55 - Syncope and collapse (2) Orthostatic hypotension Current Visit: Yes Status: Acute As above, will decrease antihypertensive regimen and recommend hydration. (3) Coronary artery disease Current Visit: Yes Status: Chronic Known CAD and multiple PCI. LHC 02/2017 showed mild-moderate 3 vessel disease, Jailed PDA branch with focal dissection. Patent LAD, Diag, and RCA stents. Continue ASA, Plavix, Statin, BB. Qualifiers: Coronary Disease-Associated Artery/Lesion type: [place] artery [place] vs. transplanted heart: [place] heart Associated angina: angina presence unspecified Qualified Code(s): I25.10 - Atherosclerotic heart disease of [place] coronary artery without angina pectoris (4) Elevated troponin Current Visit: Yes Status: Acute Troponin 0.25, 0.21, 0.14 in setting of syncopal event and TROY on admission ( now resolved). Pt denies chest pain. Nondiagnostic for ACS. Recent LHC mild-moderate 3 vessel disease, nothing amendable to PCI. Limited echo EF 45%, was 50% last month, mildly reduced. No further invasive evaluation warranted given recent LHC. Discussion w patient/family: The assessment and plan as outlined above was discussed with the patient and/or family members who expressed understanding and agreement. All questions were answered. Thank you for involving us in the care of your patient. Please call with any questions. I will discuss all the above with Dr. Landeros and make changes as necessary. Subjective Principal diagnosis: syncope Interval history: Pt denies any dizziness, lightheadedness or syncopal events overnight. Echo resulted. EF last month was 50% with regional wall motion abnormalities. EF on current echo mildly reduced at 45%. Objective Vital Signs, Last 4 Hours Temp Pulse Pulse Pulse Pulse Resp BP 04/01/17 11:27 97.9 F 67 16 152/104 04/01/17 11:22 62 66 72 BP BP BP Pulse Ox 04/01/17 11:27 98 04/01/17 11:22 162/105 156/100 141/91 Vital Signs Temp Pulse Pulse Pulse Pulse Resp BP 04/01/17 11:27 97.9 F 67 16 152/104 04/01/17 11:22 62 66 72 04/01/17 07:16 97.4 F L 63 16 151/101 04/01/17 00:55 98.2 F 58 16 124/78 03/31/17 20:00 98.5 F 71 14 158/93 03/31/17 15:24 98.2 F 69 16 163/112 BP BP BP Pulse Ox 04/01/17 11:27 98 04/01/17 11:22 162/105 156/100 141/91 04/01/17 07:16 98 04/01/17 00:55 96 03/31/17 20:00 96 03/31/17 15:24 97 Intake and Output 03/31/17 04/01/17 04/01/17 23:59 07:59 15:59 Intake Total 200 / 200 300 / 300 720 / 720 Output Total 1100 / 1100 600 / 600 Balance 200 / 200 -800 / -800 120 / 120 Intake: IV Fluids 200 / 200 Unasyn 3,000 MG In 0.9 % 200 / 200 Sodium Chloride (Mini-Bag +) 100 ML @ 200 mls/hr IVPB Q6HR [facility] Rx#: [id number] Oral 300 / 300 720 / 720 Output: Urine 1100 / 1100 600 / 600 Other: Meal Breakfast Percent of Meal Consumed 100% Weight 86.7 kg Blood Glucose* 146 285 142 Patient Weight 04/01/17 23:59 Weight 86.7 kg General: Conversant, No Apparent Distress HEENT: Atraumatic, Normocephaly, Mucus Membranes Moist Neck: No JVD, Normal carotid pulses Cardiac: Reg Rate and Rhythm, Normal S1 and S2, No Murmur Lungs: Normal Breath Sounds, No Wheeze, Rales, Rhonchi Neuro: Alert and responsive, No focal deficits noted Abdomen: Soft, Non-Tender Skin: No rashes noted on visualized skin Musculoskeletal: No Chest Wall Tenderness Extremities: No Clubbing, No Cyanosis, No Edema, Normal Pulses Results 04/01/17 04:10 04/01/17 04:10 Lab Results 04/01/17 04/01/17 04:10 04:10 WBC 4.9 Hgb 10.8 L Hct 31.2 L Plt Count 190 Sodium 137 Potassium 5.0 H Chloride 108 Carbon Dioxide 24 BUN 20 Creatinine 1.16 Glucose 337 H Calcium 8.3 L Short CBC 04/01/17 Range/Units 04:10 WBC 4.9 (4.3-11.1) K/mcL Hgb 10.8 L (12.9-16.9) g/dL Hct 31.2 L (37.5-50.1) % Plt Count 190 (140-400) K/mcL Neutrophils # 2.6 (1.6-8.9) K/mcL BMP 04/01/17 Range/Units 04:10 Sodium 137 (136-145) mEq/L Potassium 5.0 H (3.5-4.5) mEq/L Chloride 108 (98-109) mEq/L Carbon Dioxide 24 (19-29) mEq/L BUN 20 (8-26) mg/dL Creatinine 1.16 (0.72-1.25) mg/dL Glucose 337 H (70-99) mg/dL Calcium 8.3 L (8.6-10.8) mg/dL Active Medications Albuterol/Ipratropium (Duoneb) 3 ml IH [id number] PRN; Protocol PRN Reason: Shortness Of Breath/Wheezing Stop: 09/30/17 10:59 Aspirin (Aspirin) 81 mg PO DAILY [facility] Stop: 09/30/17 09:01 Last Admin: 04/01/17 09:07 Dose: 81 mg Atorvastatin Calcium (Lipitor) 80 mg PO HS [facility] Stop: 09/30/17 21:01 Last Admin: 03/31/17 20:13 Dose: 80 mg Baclofen (Lioresal) 20 mg PO TID [facility] Stop: 09/30/17 17:16 Last Admin: 04/01/17 09:05 Dose: 20 mg Clopidogrel Bisulfate (Plavix) 75 mg PO DAILY [facility] Stop: 10/01/17 09:01 Last Admin: 04/01/17 09:07 Dose: 75 mg Dextrose/Water (Dextrose 50% (Syg)) 25 ml IVP AD PRN PRN Reason: Hypoglycemia Stop: 09/29/17 23:50 Enoxaparin Sodium (Lovenox) 40 mg SQ 0600 [facility] PRN Reason: Protocol Stop: 09/30/17 09:01 Last Admin: 04/01/17 05:27 Dose: 40 mg Gabapentin (Neurontin) 800 mg PO TID [facility] Stop: 09/30/17 21:01 Last Admin: 04/01/17 09:06 Dose: 800 mg Glucagon (Glucagen) 1 mg IM ONCE PRN PRN Reason: Hypoglycemia Stop: 09/29/17 23:50 Glucose (Gluctose) 15 gm PO ONCE PRN PRN Reason: Hypoglycemia Stop: 09/29/17 23:50 Glucose (Gluctose) 30 gm PO ONCE PRN PRN Reason: Hypoglycemia Stop: 09/29/17 23:50 Hydralazine HCl (Hydralazine) 10 mg IVP Q6HR PRN PRN Reason: Hypertension Stop: 09/30/17 17:08 Dextrose (Dextrose 5%) 1,000 mls @ 100 mls/hr IVC .Q10H PRN PRN Reason: HYPOGLYCEMIA Stop: 09/29/17 23:50 Vancomycin HCl 1,250 mg/ (Dextrose) 250 mls @ 167 mls/hr IVPB Q12H [facility] PRN Reason: Protocol Stop: 09/30/17 00:06 Last Admin: 03/31/17 23:09 Dose: 167 mls/hr Ampicillin Sodium/Sulbactam Sodium 3,000 mg/ Sodium Chloride 100 mls @ 200 mls/ hr IVPB Q6HR [facility] Stop: 09/30/17 12:01 Last Admin: 04/01/17 05:28 Dose: 200 mls/hr Insulin Human Lispro (Humalog) 0 units SQ HS [facility] PRN Reason: Protocol Stop: 09/30/17 21:01 Last Admin: 03/31/17 21:04 Dose: Not Given Insulin Human Lispro (Humalog) 0 units SQ TIDAC [facility] PRN Reason: Protocol Stop: 09/30/17 16:31 Last Admin: 04/01/17 09:08 Dose: 6 units Isosorbide Mononitrate (Imdur) 15 mg PO DAILY [facility] Stop: 09/30/17 12:31 Last Admin: 04/01/17 09:06 Dose: 15 mg Lactobacillus Acidophilus/Rhamnosus (Culturelle) 1 each PO BID [facility] Stop: 09/30/17 09:01 Last Admin: 04/01/17 09:06 Dose: 1 each Lisinopril (Zestril) 2.5 mg PO DAILY [facility] PRN Reason: Protocol Stop: 09/30/17 12:31 Last Admin: 04/01/17 09:06 Dose: 2.5 mg Lorazepam (Ativan) 1 mg IVP Q6HR PRN PRN Reason: Anxiety Stop: 09/30/17 17:08 Metoprolol Succinate (Toprol Xl) 25 mg PO DAILY [facility] Stop: 10/02/17 09:01 Naloxone HCl (Narcan) 0.4 mg IVP Q2MIN PRN PRN Reason: Opioid Reversal Stop: 09/29/17 23:46 Nitroglycerin (Nitroglycerin) 0.4 mg SL Q5MIN PRN PRN Reason: Chest Pain Stop: 09/29/17 20:29 Oxycodone/Acetaminophen (Percocet 5/325) 1 each PO Q6HR PRN PRN Reason: Pain Stop: 09/30/17 16:24 Last Admin: 04/01/17 05:33 Dose: 1 each Trazodone HCl (Trazodone) 100 mg PO HS [facility] Stop: 09/30/17 21:01 Last Admin: 03/31/17 20:13 Dose: 100 mg - Imaging and Cardiology Echo: report reviewed Cardiac cath: report reviewed Consult Discharge Plan - Plan Additional Instructions: pcp requested Referrals: Richard Monte DO [Primary Care Provider] -
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
[2017-04-01 15:47] VITALS: BP 170/105
[2017-04-01] MEDS ORDERED: Aminoglycoside Consult 1 EACH MC ONE (15:59)
[2017-04-02] MEDS ORDERED: Metoprolol XL (24 HR) Succ 25 MG TAB.ER.24H PO SCH (09:00)
== END 2017-04-01 16:00 | disposition home or self-care (01) ==
LOC: EMEROO 19:11 → 2NENU 19:11 → SUATTDRO 22:27 → 2NENU 23:05
PROVIDERS: ADMIT Internal Medicine; ATTEND Internal Medicine

== ENCOUNTER 2017-08-09 09:51 | Observation (INO) ==
[2017-08-09] MEDS ORDERED: 0.9 % Sodium Chloride 500 ML IVC ONE (10:00)
--- NOTE | 2017-08-09 10:03 | Emergency Department Note ---
Disposition Clinical Impression: Chest pain Disposition: Admitted As Inpatient Condition: Good Time of Disposition: 12:22 Chest Pain HPI - General Chief Complaint: ED Chest Pain Stated Complaint: CP/SOB Time Seen by Provider: 08/09/17 09:57 Source: patient Mode of arrival: ambulatory Limitations: no limitations Vital Signs Reviewed: Yes Nursing Notes Reviewed: Yes - History of Present Illness HPI Narrative: Patient presents to the ED with the chief complaint of chest pain and shortness of breath. Patient reports that he woke up with chest pain a few hours ago. States he has a history of 6 stents and this does. Similar to his previous OH. Last stent placed was about 2 years ago. States that the pain is worse this time. Sharp pleuritic in nature centralized chest, nonradiating. Associated with shortness of breath at rest. Complaining of some peripheral edema. Denies diaphoresis, nausea or vomiting. No history of DVT, PE or malignancy. Severity scale (1-10): 9 - Related Data Home Medications Medication Instructions Recorded Confirmed Aspirin [Adult Low Dose Aspirin EC] 81 mg PO DAILY 12/14/15 08/09/17 Clopidogrel [Plavix] 75 mg PO DAILY 12/14/15 08/09/17 Metformin HCl [Metformin HCl ER] 1,000 mg PO DAILY 12/14/15 08/09/17 traZODone [TraZODone] 100 mg PO HS 12/14/15 08/09/17 Baclofen 20 mg PO TID 05/16/16 08/09/17 Gabapentin [Neurontin] 800 mg PO TID 01/04/17 08/09/17 Nitroglycerin [Nitrostat] 0.4 mg SL AD PRN 01/04/17 08/09/17 Furosemide [Lasix] 40 mg PO DAILY 03/05/17 08/09/17 Insulin ASPART [Novolog Flexpen] 2 - 10 unit SQ TID 03/05/17 08/09/17 Insulin Glargine,Hum.rec.anlog 70 unit SQ BID 03/05/17 08/09/17 [Lantus Solostar] Potassium Chloride [Klor-Con 10] 10 meq PO DAILY 03/05/17 08/09/17 Loperamide [Imodium] 2 mg PO QID 08/09/17 08/09/17 Previous Rx's Medication Instructions Recorded Atorvastatin [Lipitor] 80 mg PO HS #30 tablet 03/07/17 Isosorbide MONOnitrate (24 HR) 15 mg PO DAILY 30 Days tab.er.24h 04/01/17 [Imdur] Lisinopril [Zestril] 2.5 mg PO DAILY 30 Days tablet 04/01/17 Ondansetron ODT [Zofran ODT] 4 mg SL Q6HR PRN #15 tab.rapdis 08/05/17 Allergies Allergy/AdvReac Type Severity Reaction Status Date / Time morphine AdvReac Agitated Verified 08/09/17 11:03 All systems ED: reviewed and negative except as stated. Constitutional: Denies: fever Cardiovascular: Reports: chest pain, dyspnea on exertion, edema Respiratory: Reports: dyspnea Gastrointestinal: Denies: nausea, vomiting Chest Pain PMH - Past Medical History Medical history: Reports: coronary artery disease, diabetes, hepatitis, myocardial infarction Surgical history: Reports: angioplasty/stent, orthopedic, other Psychiatric history: Reports: depression - Social History Smoking Status: Current every day smoker Alcohol use: Reports: none Drug use: Reports: none Physical Exam - General Limitations: no limitations General appearance: alert, in no apparent distress - Head Head exam: atraumatic, normocephalic, normal inspection - Chest Chest inspection: Present: normal inspection, symmetric chest wall rise - Respiratory Respiratory exam: Present: normal lung sounds bilaterally - Cardiovascular Cardiovascular exam: Present: regular rate, normal rhythm, normal heart sounds - Abdominal Exam Abdominal exam: Present: soft, Non-Tender. Absent: tenderness, distention, guarding, rebound, rigidity - Extremities Exam Extremities exam: Present: normal inspection, full ROM, pedal edema (trace per patient ). Absent: tenderness - Neurological Exam Neurological exam: Present: alert, oriented X3 - Psychiatric Psychiatric exam: Present: normal affect, normal mood - Skin Skin exam: Present: warm, dry, intact, normal color Course Course Narrative: Patient presenting with his anginal equivalent. Will workup and admit. We will also add on d-dimer to evaluate for pulmonary embolism as the patient is having sharp pleuritic chest pain and is hypoxic. - Reevaluation(s) Reevaluation #1: admitted to hospitalist service. Vital Signs Temperature 97.9 F 08/09/17 09:52 Pulse Rate 85 08/09/17 09:52 Respiratory Rate 18 08/09/17 09:52 Blood Pressure 194/108 08/09/17 09:52 O2 Sat by Pulse Oximetry 99 08/09/17 09:52 Temperature 97.9 F 08/09/17 09:52 Pulse Rate 78 08/09/17 10:47 Respiratory Rate 18 08/09/17 10:32 Blood Pressure 155/93 08/09/17 10:47 O2 Sat by Pulse Oximetry 96 08/09/17 10:32 Oxygen Delivery Oxygen Delivery Room Air Chest Pain - MDM Narrative Medical decision making narrative: I examined this patient and my medical decision-making was reviewed with the Resident Physician. I agree with the documented findings, disposition and treatment plan as described except to the extent set forth below. Patient seen and evaluated by myself and Dr. Núñez, I agree with his evaluation and management plan, supervising care the patient throughout the stay. Patient with significant cardiac history and stents in the past chest pain for about 2 hours this morning. Cardiac workup and chest x-ray EKG and reassess. He is in agreement to this plan. 1220 hrs.: Patient's labs are back. CTA is negative. Recommend admitting go up pain free at this time. Speaking the hospitalist that time. Patient is in agreement with this plan. Chest X-Ray 08/09/17 10:00 IMPRESSION: 1. No active pulmonary disease. D/ / Henrique Call MD / Henrique Call MD Interpreting Provider: Henrique Call MD Chest CTA 08/09/17 10:46 IMPRESSION: No evidence of pulmonary embolism or acute pulmonary abnormality. D/ / 08/09/2017 11:46:32 Mira Kendrick MD / [email or web address] Interpreting Provider: Mira Kendrick MD 1100 hrs.: Admit the patient to the hospitalist for this time for chest pain rule out ACS, their agreement with plan. - Medical Records Medical records reviewed: Yes I reviewed the patient's medical records. - Lab Data Lab results reviewed: Yes I reviewed the patient's lab results. Result diagrams: 08/09/17 10:10 08/09/17 10:10 Lab Results 08/09/17 08/09/17 08/09/17 Range/Units 10:10 10:10 10:10 WBC 3.6 L (4.3-11.1) K/mcL RBC 3.32 L (4.19-5.50) M/mcL Hgb 10.6 L (12.9-16.9) g/dL Hct 30.6 L (37.5-50.1) % MCV 92.2 (83.0-100.0) fL MCH 31.9 (28.0-33.3) pg MCHC 34.6 (31.6-35.5) g/dL RDW 13.6 (11.5-14.5) % Plt Count 139 L (140-400) K/mcL MPV 9.8 (9.4-12.4) fL Immature Gran % 0.0 (0-4) % Seg Neutrophils % 65.8 % Lymphocytes % 26.2 % Monocytes % 4.4 % Eosinophils % 3.3 % Basophils % 0.3 % Neutrophils # 2.4 (1.6-8.9) K/mcL Lymphocytes # 1.0 (0.6-4.6) K/mcL Monocytes # 0.2 (0.0-1.3) K/mcL Eosinophils # 0.1 (0.0-0.6) K/mcL Basophils # 0.0 (0.0-0.2) K/mcL PT 12.4 H (9.4-12.1) Seconds INR 1.1 APTT 32.1 (26.0-36.0) Seconds D-Dimer 607 H (0-500) ng/mLFEU Sodium (136-145) mEq/L Potassium (3.5-4.5) mEq/L Chloride (98-109) mEq/L Carbon Dioxide (19-29) mEq/L BUN (8-26) mg/dL Creatinine (0.72-1.25) mg/dL Est GFR ( Amer) (> 60) Est GFR (Non-Af Amer) (> 60) BUN/Creatinine Ratio (6-26) Glucose (70-99) mg/dL Calculated Osmolality (280-300) Calcium (8.6-10.8) mg/dL Troponin I (0-0.03) ng/mL B-Natriuretic Peptide 568 H (0-100) pg/mL Urine Color (Yellow) Urine Clarity (Clear) Urine pH (5.0-8.0) pH Units Ur Specific [place] (1.010-1.025) Urine Protein (Neg-Trace) mg/dL Urine Glucose (UA) (Normal) mg/dL Urine Ketones (Negative) mg/dL Urine Blood (Negative) Urine Nitrite (Negative) Urine Bilirubin (Negative) Urine Urobilinogen (Normal) mg/dL Ur Leukocyte Esterase (Negative) Urine Microscopic RBC (0-3) per hpf Urine Microscopic WBC (0-3) per hpf Ur Squamous Epith Cells (None-Few) per lpf Urine Bacteria (None-Few) per hpf Hyaline Casts (None-Few) per lpf Ur Culture Indicated? (NO) Urine Opiates Screen (Zhzhdu=844) ng/mL Ur Barbiturates Screen (Xmwjbx=965) ng/mL Ur Phencyclidine Scrn (Cutoff=25) ng/mL Ur Amphetamines Screen (Chilxn=7774) ng/mL U Benzodiazepines Scrn (Xabppc=801) ng/mL Urine Cocaine Screen (Cutoff= 300) ng/mL U Marijuana (THC) Screen (Cutoff = 50) ng/mL 08/09/17 08/09/17 08/09/17 Range/Units 10:10 10:10 11:36 WBC (4.3-11.1) K/mcL RBC (4.19-5.50) M/mcL Hgb (12.9-16.9) g/dL Hct (37.5-50.1) % MCV (83.0-100.0) fL MCH (28.0-33.3) pg MCHC (31.6-35.5) g/dL RDW (11.5-14.5) % Plt Count (140-400) K/mcL MPV (9.4-12.4) fL Immature Gran % (0-4) % Seg Neutrophils % % Lymphocytes % % Monocytes % % Eosinophils % % Basophils % % Neutrophils # (1.6-8.9) K/mcL Lymphocytes # (0.6-4.6) K/mcL Monocytes # (0.0-1.3) K/mcL Eosinophils # (0.0-0.6) K/mcL Basophils # (0.0-0.2) K/mcL PT (9.4-12.1) Seconds INR APTT (26.0-36.0) Seconds D-Dimer (0-500) ng/mLFEU Sodium 137 (136-145) mEq/L Potassium 4.2 (3.5-4.5) mEq/L Chloride 102 (98-109) mEq/L Carbon Dioxide 29 (19-29) mEq/L BUN 14 (8-26) mg/dL Creatinine 0.95 (0.72-1.25) mg/dL Est GFR ( Amer) > 60 (> 60) Est GFR (Non-Af Amer) > 60 (> 60) BUN/Creatinine Ratio 15 (6-26) Glucose 328 H (70-99) mg/dL Calculated Osmolality 297 (280-300) Calcium 9.3 (8.6-10.8) mg/dL Troponin I 0.02 (0-0.03) ng/mL B-Natriuretic Peptide (0-100) pg/mL Urine Color Yellow (Yellow) Urine Clarity Clear (Clear) Urine pH 6.0 (5.0-8.0) pH Units Ur Specific [place] > 1.030 H (1.010-1.025) Urine Protein >=300 H (Neg-Trace) mg/dL Urine Glucose (UA) >=1000 H (Normal) mg/dL Urine Ketones Negative (Negative) mg/dL Urine Blood Small H (Negative) Urine Nitrite Negative (Negative) Urine Bilirubin Negative (Negative) Urine Urobilinogen Normal (Normal) mg/dL Ur Leukocyte Esterase Negative (Negative) Urine Microscopic RBC 5-15 H (0-3) per hpf Urine Microscopic WBC 0-3 (0-3) per hpf Ur Squamous Epith Cells Few (None-Few) per lpf Urine Bacteria None Seen (None-Few) per hpf Hyaline Casts None Seen (None-Few) per lpf Ur Culture Indicated? NO (NO) Urine Opiates Screen (Vekkrd=608) ng/mL Ur Barbiturates Screen (Lflfrf=795) ng/mL Ur Phencyclidine Scrn (Cutoff=25) ng/mL Ur Amphetamines Screen (Scotjz=0660) ng/mL U Benzodiazepines Scrn (Tdcypk=694) ng/mL Urine Cocaine Screen (Cutoff= 300) ng/mL U Marijuana (THC) Screen (Cutoff = 50) ng/mL 10/28/17 Range/Units 11:36 WBC (4.3-11.1) K/mcL RBC (4.19-5.50) M/mcL Hgb (12.9-16.9) g/dL Hct (37.5-50.1) % MCV (83.0-100.0) fL MCH (28.0-33.3) pg MCHC (31.6-35.5) g/dL RDW (11.5-14.5) % Plt Count (140-400) K/mcL MPV (9.4-12.4) fL Immature Gran % (0-4) % Seg Neutrophils % % Lymphocytes % % Monocytes % % Eosinophils % % Basophils % % Neutrophils # (1.6-8.9) K/mcL Lymphocytes # (0.6-4.6) K/mcL Monocytes # (0.0-1.3) K/mcL Eosinophils # (0.0-0.6) K/mcL Basophils # (0.0-0.2) K/mcL PT (9.4-12.1) Seconds INR APTT (26.0-36.0) Seconds D-Dimer (0-500) ng/mLFEU Sodium (136-145) mEq/L Potassium (3.5-4.5) mEq/L Chloride (98-109) mEq/L Carbon Dioxide (19-29) mEq/L BUN (8-26) mg/dL Creatinine (0.72-1.25) mg/dL Est GFR ( Amer) (> 60) Est GFR (Non-Af Amer) (> 60) BUN/Creatinine Ratio (6-26) Glucose (70-99) mg/dL Calculated Osmolality (280-300) Calcium (8.6-10.8) mg/dL Troponin I (0-0.03) ng/mL B-Natriuretic Peptide (0-100) pg/mL Urine Color (Yellow) Urine Clarity (Clear) Urine pH (5.0-8.0) pH Units Ur Specific [place] (1.010-1.025) Urine Protein (Neg-Trace) mg/dL Urine Glucose (UA) (Normal) mg/dL Urine Ketones (Negative) mg/dL Urine Blood (Negative) Urine Nitrite (Negative) Urine Bilirubin (Negative) Urine Urobilinogen (Normal) mg/dL Ur Leukocyte Esterase (Negative) Urine Microscopic RBC (0-3) per hpf Urine Microscopic WBC (0-3) per hpf Ur Squamous Epith Cells (None-Few) per lpf Urine Bacteria (None-Few) per hpf Hyaline Casts (None-Few) per lpf Ur Culture Indicated? (NO) Urine Opiates Screen Positive H (Jsjwto=802) ng/mL Ur Barbiturates Screen Negative (Kwistd=132) ng/mL Ur Phencyclidine Scrn Negative (Cutoff=25) ng/mL Ur Amphetamines Screen Negative (Vuwxkv=6967) ng/mL U Benzodiazepines Scrn Negative (Keccux=722) ng/mL Urine Cocaine Screen Negative (Cutoff= 300) ng/mL U Marijuana (THC) Screen Negative (Cutoff = 50) ng/mL - Radiology Data Radiology results reviewed: Yes I reviewed the patient's radiology results. - EKG Data EKG attestation: Yes I reviewed and interpreted this EKG. EKG results narrative: Sinus rhythm, rate 80, TX interval 125, QRS 92, QTC 424, normal axis, no acute ischemic changes. Heart Score - Score History: Highly Suspicious EKG: Normal Age: 45-65 Risk Factors: Equal/Greater than 3 risk factor or history of atherosclerotic disease Troponin: Less than normal limit HEART Score Total: 5
[2017-08-09 10:19] LABS: Basophils % 0.3 %; Eosinophils # 0.1 K/mcL (0.0-0.6); Eosinophils % 3.3 %; Hematocrit 30.6 % (37.5-50.1); Hemoglobin 10.6 g/dL (12.9-16.9); Lymphocytes % 26.2 %; Mean Corpuscular HGB Conc 34.6 g/dL (31.6-35.5); Mean Corpuscular Hemoglobin 31.9 pg (28.0-33.3); Mean Corpuscular Volume 92.2 fL (83.0-100.0); Mean Platelet Volume 9.8 fL (9.4-12.4); Monocytes # 0.2 K/mcL (0.0-1.3); Monocytes % 4.4 %; Neutrophils # 2.4 K/mcL (1.6-8.9); Platelet Count 139 K/mcL (140-400); Red Blood Count 3.32 M/mcL (4.19-5.50); Red Cell Distribution Width 13.6 % (11.5-14.5); Segmented Neutrophils % 65.8 %
[2017-08-09 10:23] LABS: INR 1.1; Prothrombin Time 12.4 Seconds (9.4-12.1)
[2017-08-09 10:26] LABS: Activated Partial Thrombo Time 32.1 Seconds (26.0-36.0)
[2017-08-09] MEDS: Nitroglycerin 0.4 MG TAB.SUBL SL ONE ×2 (10:30→10:36)
[2017-08-09 10:33] LABS: BUN/Creatinine Ratio 15 (6-26); Blood Urea Nitrogen 14 mg/dL (8-26); Calcium 9.3 mg/dL (8.6-10.8); Carbon Dioxide 29 mEq/L (19-29); Chloride 102 mEq/L (98-109); Glucose 328 mg/dL (70-99); Osmolality,Calculated 297 (280-300); Potassium 4.2 mEq/L (3.5-4.5); Sodium 137 mEq/L (136-145); eGFR For African Americans > 60 (> 60); eGFR For Non-African Americans > 60 (> 60)
[2017-08-09] MEDS ORDERED: *HR* HYDROmorphone (PF) 1 MG/ML SYRINGE IVP ONE (10:49)
[2017-08-09 11:48] LABS: Bilirubin,Urine Negative (Negative); Blood,Urine Small (Negative); Clarity,Urine Clear (Clear); Color,Urine Yellow (Yellow); Glucose,Urine (UA) >=1000 mg/dL (Normal); Ketones,Urine Negative (Negative); Leukocyte Esterase,Urine Negative (Negative); Nitrite,Urine Negative (Negative); Protein,Urine >=300 mg/dL (Neg-Trace); Specific Gravity,Urine > 1.030 (1.010-1.025); Urobilinogen,Urine Normal (Normal)
[2017-08-09 11:50] LABS: Bacteria,Urine None Seen per hpf (None-Few); Hyaline Casts,Urine None Seen per lpf (None-Few); Squamous Epithelial Cell,Urine Few per lpf (None-Few); WBC,Urine 0-3 per hpf (0-3)
[2017-08-09] MEDS ORDERED: Aspirin 325 MG TABLET PO ONE (11:51)
[2017-08-09 11:55] LABS: Amphetamine Screen,Urine Negative ng/mL (Cutoff=1000); Barbiturate Screen,Urine Negative ng/mL (Cutoff=200); Benzodiazepines Screen,Urine Negative ng/mL (Cutoff=200); Cannabinoid Screen,Urine Negative ng/mL (Cutoff = 50); Cocaine Screen,Urine Negative ng/mL (Cutoff= 300); Opiate Screen,Urine Positive ng/mL (Cutoff=300); Phencyclidine Screen,Urine Negative ng/mL (Cutoff=25)
[2017-08-09] MEDS ORDERED: Naloxone 0.4 MG/ML INJ IVP PRN (13:14)
[2017-08-09] MEDS ORDERED: Ondansetron 4 MG/2 ML VIAL IVP PRN (13:14)
[2017-08-09] MEDS ORDERED: Acetaminophen 325 MG TABLET PO PRN (13:14)
[2017-08-09] MEDS ORDERED: *HR* Dextrose 50 % in Water (Syg) 50 ML SYRINGE IVP PRN (13:57)
[2017-08-09] MEDS ORDERED: Dextrose Gel 15 GM PO PRN ×2 (13:57)
[2017-08-09] MEDS ORDERED: D5% in Water 1,000 ML IVC PRN (13:57)
[2017-08-09] MEDS ORDERED: Ondansetron ODT 4 MG TAB.RAPDIS SL PRN (13:59)
[2017-08-09] MEDS ORDERED: Nitroglycerin 0.4 MG TAB.SUBL SL PRN (13:59)
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
[2017-08-09] MEDS: *HR* HYDROmorphone (PF) 1 MG/ML SYRINGE IVP PRN ×2 (15:12→19:23)
[2017-08-09] MEDS: Gabapentin 400 MG CAPSULE PO SCH ×2 (15:14→21:11)
[2017-08-09] MEDS: Baclofen 10 MG TABLET PO SCH ×2 (15:14→21:11)
[2017-08-09] MEDS ORDERED: Ketorolac 15 MG/ML VIAL IVP PRN (15:57)
[2017-08-09] MEDS: Insulin LISPRO 300 UNITS/3 ML VIAL SQ SCH ×2 (17:34→21:10)
[2017-08-09] MEDS: traZODone 50 MG TABLET PO SCH (21:11)
[2017-08-09] MEDS: Insulin DETEMIR 100 UNIT/ML X5UNITS SQ SCH (21:12)
--- NOTE | 2017-08-09 22:25 | Cardiology Consult Note ---
Date of Encounter: 08/09/17 Time of Encounter: 22:18 Assessment and Plan (1) CHF (congestive heart failure), NYHA class III Current Visit: Yes Status: Acute Mild elevated BNP, possibly ischemic in nature with previous multiple STENTS and Jailed RPDA, gentle diuresis and strict I/Os. Continue to titrate up CHF meds as tolerated Qualifiers: Congestive heart failure type: systolic Congestive heart failure chronicity : acute Qualified Code(s): I50.21 - Acute systolic (congestive) heart failure Code(s): I50.9 - Heart failure, unspecified SNOMED Code(s): 824223764 (2) Chest pain Current Visit: Yes Status: Acute Consider High risk PCI to jailed RPDA for recurrent chest pain and mild CHF ( NYHA class 3) Qualifiers: Chest pain type: unspecified Qualified Code(s): R07.9 - Chest pain, unspecified Code(s): R07.9 - Chest pain, unspecified SNOMED Code(s): 38788324 Discussion w patient/family: The assessment and plan as outlined above was discussed with the patient and/or family members who expressed understanding and agreement. All questions were answered. Thank you for involving us in the care of your patient. Please call with any questions. History of Present Illness Consult date: 08/09/17 Requesting physician: Liabn Rahman Consult reason: Dizziness , Chest pain Chief complaint: Chest feels tight and I have been dizzy for last few weeks History of present illness: Mr. Hi is a 47 year old male known to cardiology service complains of chest pain typical in presentation with episodes of dizziness and lightheadedness. No recent episodes of syncope. [facility] Limited ECHO reveals EF 45% Jailed RPDA possible culprit for chest pain and lightheadedness. Currently on maximal medical management. Patient may benefit from high risk PCI of jailed RPDA. Initial troponin is .05 will follow along check serial CE's. Past Med Surg Social Fam HX - Past Medical History Medical history: coronary artery disease, diabetes, hepatitis, myocardial infarction Psychiatric history: depression - Past Surgical History Surgical History: angioplasty/stent, orthopedic, other - Social History Smoking Status: Current every day smoker Smokeless Tobacco Status: No Alcohol use: none Drug use: none - Family History Mother Family Member Ethnicity: Non- Living Status: Still Living Hx Family Cardiac Disorders: Yes (HTN, HLD) Hx Family Respiratory Disorders: No Hx Family Cancer: No Hx Family GI Disorders: Yes (Irritable bowel syndrome) Hx Family Endocrine Disorder: Yes Hx Family Neuromuscular Disorders: No Hx Family Neurologic Disorders: No Hx Family HEENT Disorders: No Hx Family Autoimmune Disorders: No Father Hx Family Cardiac Disorders: Yes (CAD s/p CABG) Medications and Allergies Aspirin [Adult Low Dose Aspirin EC] 81 mg PO DAILY 12/14/15 [History] Clopidogrel [Plavix] 75 mg PO DAILY 12/14/15 [History] Metformin HCl [Metformin HCl ER] 1,000 mg PO DAILY 12/14/15 [History] traZODone [TraZODone] 100 mg PO HS 12/14/15 [History] Baclofen 20 mg PO TID 05/16/16 [History] Gabapentin [Neurontin] 800 mg PO TID 01/04/17 [History] Nitroglycerin [Nitrostat] 0.4 mg SL AD PRN 01/04/17 [History] Furosemide [Lasix] 40 mg PO DAILY 03/05/17 [History] Insulin ASPART [Novolog Flexpen] 2 - 10 unit SQ TID 03/05/17 [History] Insulin Glargine,Hum.rec.anlog [Lantus Solostar] 70 unit SQ BID 03/05/17 [ History] Potassium Chloride [Klor-Con 10] 10 meq PO DAILY 03/05/17 [History] Atorvastatin [Lipitor] 80 mg PO HS #30 tablet 03/07/17 [Rx] Isosorbide MONOnitrate (24 HR) [Imdur] 15 mg PO DAILY 30 Days tab.er.24h [Rx] Lisinopril [Zestril] 2.5 mg PO DAILY 30 Days tablet 04/01/17 [Rx] Ondansetron ODT [Zofran ODT] 4 mg SL Q6HR PRN #15 tab.rapdis 08/05/17 [Rx] Loperamide [Imodium] 2 mg PO QID 08/09/17 [History] 3 Allergy/AdvReac Type Severity Reaction Status Date / Time morphine AdvReac Agitated Verified 08/09/17 11:03 All Systems Review: A 10-system review of systems was performed and is negative for pertinent findings except as documented above in the HPI. Physical Examination Vital Signs, Last 4 Hours Temp Pulse Resp BP Pulse Ox 08/09/17 19:30 97 08/09/17 19:07 97.7 F 81 16 176/98 97 General: Conversant, No Apparent Distress HEENT: Atraumatic, Normocephaly, Mucus Membranes Moist Neck: No JVD, Normal carotid pulses Cardiac: Reg Rate and Rhythm, Normal S1 and S2, No Murmur Lungs: Normal Breath Sounds, No Wheeze, Rales, Rhonchi, Other (bilateral dimished air entry) Neuro: Alert and responsive, No focal deficits noted Abdomen: Soft, Non-Tender Skin: No rashes noted on visualized skin Musculoskeletal: No Chest Wall Tenderness Extremities: No Clubbing, No Cyanosis, No Edema, Normal Pulses Results 08/09/17 10:10 08/09/17 10:10 Lab Results 08/09/17 15:36 Troponin I 0.02 - EKG Interpretation EKG results cardiology: personally reviewed, sinus rhythm (NSR with no ischemic changes) Consult Discharge Plan - Plan Referrals: Richard Monte DO [Primary Care Provider] -
[2017-08-10] MEDS: *HR* HYDROmorphone (PF) 1 MG/ML SYRINGE IVP PRN ×5 (01:20→21:55)
[2017-08-10 04:35] LABS: Basophils % 0.6 %; Eosinophils # 0.1 K/mcL (0.0-0.6); Eosinophils % 3.1 %; Hemoglobin 9.6 g/dL (12.9-16.9); Lymphocytes # 1.2 K/mcL (0.6-4.6); Mean Corpuscular HGB Conc 34.3 g/dL (31.6-35.5); Mean Corpuscular Hemoglobin 32.2 pg (28.0-33.3); Mean Platelet Volume 10.4 fL (9.4-12.4); Monocytes # 0.2 K/mcL (0.0-1.3); Monocytes % 6.3 %; Neutrophils # 1.7 K/mcL (1.6-8.9); Platelet Count 121 K/mcL (140-400); Red Blood Count 2.98 M/mcL (4.19-5.50); Red Cell Distribution Width 13.6 % (11.5-14.5)
[2017-08-10 04:45] LABS: BUN/Creatinine Ratio 15 (6-26); Blood Urea Nitrogen 17 mg/dL (8-26); Calcium 8.9 mg/dL (8.6-10.8); Carbon Dioxide 30 mEq/L (19-29); Chloride 102 mEq/L (98-109); Cholesterol 160 mg/dL (< 200); Glucose 341 mg/dL (70-99); HDL Cholesterol 23 mg/dL (40-59); LDL Cholesterol,Calculated 88 mg/dL (0-99); Magnesium 1.4 mg/dL (1.6-2.6); Osmolality,Calculated 299 (280-300); Potassium 3.9 mEq/L (3.5-4.5); Sodium 137 mEq/L (136-145); Triglycerides 247 mg/dL (< 150); eGFR For African Americans > 60 (> 60); eGFR For Non-African Americans > 60 (> 60)
[2017-08-10] MEDS ORDERED: *HR* Enoxaparin 40 MG/0.4 ML SYRINGE SQ SCH (07:00)
[2017-08-10] MEDS: Insulin LISPRO 300 UNITS/3 ML VIAL SQ SCH ×4 (08:16→21:06)
[2017-08-10] MEDS: Isosorbide MONOnitrate (24 HR) 30 MG TAB.ER.24H PO SCH (08:17)
[2017-08-10] MEDS: Furosemide 40 MG TABLET PO SCH (08:17)
[2017-08-10] MEDS: Baclofen 10 MG TABLET PO SCH ×3 (08:17→21:19)
[2017-08-10] MEDS: Pantoprazole 40 MG VIAL IVP SCH (08:18)
[2017-08-10] MEDS: Gabapentin 400 MG CAPSULE PO SCH ×3 (08:18→21:19)
[2017-08-10] MEDS: Aspirin Enteric Coated 81 MG Tablet PO SCH (08:18)
[2017-08-10] MEDS ORDERED: Magnesium Sulfate 2 GM in D5% in Water 100 ML IVPB ONE (08:35)
[2017-08-10] MEDS: Insulin DETEMIR 100 UNIT/ML X5UNITS SQ SCH ×2 (10:33→22:02)
--- NOTE | 2017-08-10 18:57 | Internal Med Progress Note ---
Date of Encounter: 08/10/17 Time of Encounter: 18:54 - Assessment and plan (1) Musculoskeletal chest pain Current Visit: Yes Status: Acute Assessment and plan: Pt with musculoskeletal chest pain. May also have component of cardiac. Appreciate input - ? further treatment needed. (2) HTN (hypertension) Current Visit: No Status: Chronic Assessment and plan: continue home meds. Qualifiers: Hypertension type: essential hypertension Qualified Code(s): I10 - Essential (primary) hypertension (3) Hyperlipidemia Current Visit: No Status: Chronic Assessment and plan: Continue home meds. Qualifiers: Hyperlipidemia type: mixed hyperlipidemia Qualified Code(s): E78.2 - Mixed hyperlipidemia (4) Hepatitis C Current Visit: No Status: Chronic Qualifiers: Viral hepatitis chronicity: unspecified Hepatic coma status: without hepatic coma Qualified Code(s): B19.20 - Unspecified viral hepatitis C without hepatic coma (5) Tobacco abuse Current Visit: No Status: Chronic Assessment and plan: Cessation counselling. - Subjective Interval history: Mr Hi is currently in observation for chest pain. Mr Hi is still having some chest discomfort. Hurts more to move. No SOB. No fever or chills. - Constitutional Vitals: Temp Pulse Resp BP Pulse Ox 97.8 F 83 18 162/88 96 08/10/17 15:32 08/10/17 15:32 08/10/17 15:32 08/10/17 15:32 08/10/17 15:32 General appearance: Present: A&O X 3, answers questions appropriately - Head Head exam: Present: normocephalic - Eye Eye exam: Present: conjuntiva pink - ENT ENT exam: Present: mucous membranes moist - Respiratory Respiratory exam: Present: CTAB. Absent: rales, rhonchi, wheezes - Cardiovascular Cardiovascular exam: Present: RRR, +S4 - GI/Abdominal GI/Abdominal exam: Present: soft. Absent: tenderness - Extremities Exam Extremities exam: Present: warm. Absent: tenderness - Neurological Exam Neurological exam: Present: alert, oriented X3 Internal Medicine: Result - Labs CBC & Chem 7: 08/10/17 04:04 08/10/17 04:04 Labs: Short CBC 08/10/17 Range/Units 04:04 WBC 3.2 L (4.3-11.1) K/mcL Hgb 9.6 L (12.9-16.9) g/dL Hct 28.0 L (37.5-50.1) % Plt Count 121 L (140-400) K/mcL Neutrophils # 1.7 (1.6-8.9) K/mcL BMP 08/10/17 04:04 Sodium 137 Potassium 3.9 Chloride 102 Carbon Dioxide 30 H BUN 17 Creatinine 1.12 Glucose 341 H Calcium 8.9 Cardiac Enzymes 08/09/17 Range/Units 21:52 Troponin I 0.02 (0-0.03) ng/mL - ABG Interpretation ABG results: PT/INR, D-dimer PT 12.4 Seconds (9.4-12.1) H 08/09/17 10:10 D-Dimer 607 ng/mLFEU (0-500) H 08/09/17 10:10 Consult Discharge Plan - Plan Referrals: Richard Monte DO [Primary Care Provider] -
[2017-08-10] MEDS: traZODone 50 MG TABLET PO SCH (21:19)
[2017-08-11] MEDS: *HR* HYDROmorphone (PF) 1 MG/ML SYRINGE IVP PRN ×4 (04:35→19:54)
[2017-08-11 05:07] LABS: Mean Corpuscular HGB Conc 33.9 g/dL (31.6-35.5); Mean Corpuscular Hemoglobin 31.7 pg (28.0-33.3); Mean Corpuscular Volume 93.5 fL (83.0-100.0); Mean Platelet Volume 10.5 fL (9.4-12.4); Platelet Count 159 K/mcL (140-400); Red Blood Count 3.53 M/mcL (4.19-5.50); Red Cell Distribution Width 13.6 % (11.5-14.5)
[2017-08-11 05:28] LABS: Hemoglobin 11.2 g/dL (12.9-16.9)
[2017-08-11 05:44] LABS: BUN/Creatinine Ratio 21 (6-26); Blood Urea Nitrogen 23 mg/dL (8-26); Calcium 9.2 mg/dL (8.6-10.8); Carbon Dioxide 32 mEq/L (19-29); Chloride 103 mEq/L (98-109); Glucose 188 mg/dL (70-99); Magnesium 1.6 mg/dL (1.6-2.6); Osmolality,Calculated 299 (280-300); Sodium 140 mEq/L (136-145); eGFR For African Americans > 60 (> 60); eGFR For Non-African Americans > 60 (> 60)
[2017-08-11] MEDS: Insulin LISPRO 300 UNITS/3 ML VIAL SQ SCH ×4 (07:52→21:54)
[2017-08-11] MEDS: Gabapentin 400 MG CAPSULE PO SCH ×3 (08:56→19:55)
[2017-08-11] MEDS: Pantoprazole 40 MG VIAL IVP SCH (08:56)
[2017-08-11] MEDS: Baclofen 10 MG TABLET PO SCH ×3 (08:57→19:54)
[2017-08-11] MEDS: Furosemide 40 MG TABLET PO SCH (08:57)
[2017-08-11] MEDS: Isosorbide MONOnitrate (24 HR) 30 MG TAB.ER.24H PO SCH (08:57)
[2017-08-11] MEDS: Aspirin Enteric Coated 81 MG Tablet PO SCH (08:57)
[2017-08-11] MEDS: Insulin DETEMIR 100 UNIT/ML X5UNITS SQ SCH ×2 (08:59→19:55)
--- NOTE | 2017-08-11 10:42 | Internal Med Progress Note ---
Date of Encounter: 08/11/17 Time of Encounter: 10:41 - Assessment and plan (1) Musculoskeletal chest pain Current Visit: Yes Status: Acute Assessment and plan: Pt with musculoskeletal chest pain. To have cardiac cath today for further evaluation and treatment. Continue pain control. (2) HTN (hypertension) Current Visit: No Status: Chronic Assessment and plan: continue home meds. Qualifiers: Hypertension type: essential hypertension Qualified Code(s): I10 - Essential (primary) hypertension (3) Hyperlipidemia Current Visit: No Status: Chronic Assessment and plan: Continue home meds. Qualifiers: Hyperlipidemia type: mixed hyperlipidemia Qualified Code(s): E78.2 - Mixed hyperlipidemia (4) Hepatitis C Current Visit: No Status: Chronic Qualifiers: Viral hepatitis chronicity: unspecified Hepatic coma status: without hepatic coma Qualified Code(s): B19.20 - Unspecified viral hepatitis C without hepatic coma (5) Tobacco abuse Current Visit: No Status: Chronic Assessment and plan: Cessation counselling. (6) Systolic heart failure Current Visit: Yes Status: Chronic Assessment and plan: Continue home meds. Qualifiers: Heart failure chronicity: chronic Qualified Code(s): I50.22 - Chronic systolic (congestive) heart failure - Subjective Interval history: Mr Hi is currently in observation for chest pain. Mr Hi continues to have chest pain. No fever or chills. To have cardiac cath today. - Constitutional Vitals: Temp Pulse Resp BP Pulse Ox 97.6 F 87 17 182/92 97 08/11/17 07:15 08/11/17 07:15 08/11/17 07:15 08/11/17 07:15 08/11/17 07:15 General appearance: Present: A&O X 3, answers questions appropriately - Head Head exam: Present: normocephalic - Eye Eye exam: Present: EOMI, conjuntiva pink - ENT ENT exam: Present: mucous membranes moist - Respiratory Respiratory exam: Present: CTAB. Absent: rhonchi, wheezes - Cardiovascular Cardiovascular exam: Present: RRR. Absent: tachycardia - GI/Abdominal GI/Abdominal exam: Present: soft. Absent: tenderness - Extremities Exam Extremities exam: Present: warm. Absent: tenderness - Neurological Exam Neurological exam: Present: alert, oriented X3, no focal deficits Internal Medicine: Result - Labs CBC & Chem 7: 08/11/17 04:30 08/11/17 04:30 Labs: Short CBC 08/11/17 Range/Units 04:30 WBC 3.9 L (4.3-11.1) K/mcL Hgb 11.2 L D (12.9-16.9) g/dL Hct 33.0 L (37.5-50.1) % Plt Count 159 (140-400) K/mcL BMP 08/11/17 04:30 Sodium 140 Potassium 4.0 Chloride 103 Carbon Dioxide 32 H BUN 23 Creatinine 1.12 Glucose 188 H Calcium 9.2 - ABG Interpretation ABG results: PT/INR, D-dimer PT 12.4 Seconds (9.4-12.1) H 08/09/17 10:10 D-Dimer 607 ng/mLFEU (0-500) H 08/09/17 10:10 Consult Discharge Plan - Plan Referrals: Richard Monte DO [Primary Care Provider] -
--- NOTE | 2017-08-11 16:08 | Event Note ---
Date of Encounter: 08/11/17 Time of Encounter: 10:00 - Cardiology Event Note mr. Hi continues to c/o constant chest pain and dizziness with standing. LHC films reviewed by Dr. Burch. He recommends repeat LHC for re-evaluation of jailed PDA. R/B/A of LHC reviewed. Patient agrees to proceed. Planning for LHC later today.
--- NOTE | 2017-08-11 16:59 | Electrocardiograph Report ---
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
[2017-08-11] MEDS ORDERED: *HR* Heparin 10,000 UNIT/10 ML VIAL ONE (17:16)
[2017-08-11] MEDS ORDERED: Nitroglycerin 1,000 MCG/10 ML VIAL IV ONE (17:16)
[2017-08-11] MEDS ORDERED: Heparin 1,000 UNITS/500 mL NS 500 ML ONE (17:16)
[2017-08-11] MEDS ORDERED: 0.9 % Sodium Chloride 1,000 ML ONE ×2 (17:16→17:52)
[2017-08-11] MEDS ORDERED: *HR* Midazolam HCl 2 MG/2 ML VIAL ONE (17:52)
--- NOTE | 2017-08-11 18:09 | Pre-Sedation Evaluation ---
Pre-sedation evaluation - Pre-sedation checklist Date of procedure: 08/11/17 Procedure: Heart cath Recent Vitals: Last Vital Signs Temp 97.3 F L 08/11/17 15:50 Pulse 89 08/11/17 15:50 Resp 16 08/11/17 15:50 BP 160/87 08/11/17 15:50 Pulse Ox 98 08/11/17 15:50 H&P (including ROS) documented in medical record: Yes Previous reaction to sedatives/anesthetics: No Dietary Status: NPO 6 hours prior to procedure Airway Assessment: Patient can open mouth completely, TMJ function normal Dentition: No loose teeth or bridges Possible difficult airway: No ASA Classification *see protocol: CLASS III-Severe systemic disease Plan of Care: Pt appropriate candidate for procedure/moderate/conscious sedation , Risks/benefits of procedure/sedation discussed w/ patient/family, If not NPO; Risk of intake outweiged by necessity to perform procedure
[2017-08-11] MEDS ORDERED: 0.9 % Sodium Chloride 1,000 ML IVC SCH (18:45)
--- NOTE | 2017-08-11 18:50 | Invasive Diagnostic Lab Proc ---
Name: Bartolo Hi Date of Study: 08/11/2017 Date: 1970 Ht: 72.8in Medical Record#: [id number] Age: 47 Wt: 194.01lb Gender: Male BSA: 2.12 Order #: [id number] BMI: 25.71 Physicians Procedure Physician: Hussein Fajardo DO Referring MD: Referring MD: Staff Name Position Time In [facility] Jared RN Show Host Or Hostess 06:09 PM Briseida Perez RN Show Host Or Hostess 06:09 PM Gayla Gillespie RN Monitor 06:09 PM Valentina, Cheri RT (R) Scrub 06:09 PM Indications Indication Unstable Angina Procedures Performed Procedure L HRT ARTERY/VENTRICLE ANGIO Pre-Procedure Checklist Informed consent is complete signed and on chart. H&P is on chart. ID band is on and ID verified with patient. Patient NPO for procedure The procedure was described for the patient and questions were answered. ECG is on chart. Plan of Care Patient will tolerate the procedure without complications. Adequate level of comfort will be maintained. Hemodynamics will remain stable Patient will recover from procedure without complications. Respiratory function will be maintained. Cardiac rhythm will remain stable. Patient temperature will be maintained. Patient and/or family have verbalized understanding of the procedure. Patient Education Chief Complaint/Reason for Test: Cardiac Cath Developmental Category: Adult (18-64 years) Developmentally Appropriate for Age: Yes Learning Barriers: None Education Needs: Procedure Education Method: Verbal Information Taught: Cardiac Cath Educational Evaluation: Able to repeat information Intravenous Access Time IV Size Location DC'd Fluid/Drip Rate Units RN 20g 1 1/" Patent On Arrival Allergies morphine Vital Signs Time BP (mmHg) HR (bpm) O2 Sat. RR (bpm) LOC 06:10 PM / % 5 = Fully awake and oriented or at pre-proc level 06:10 PM / % 3 = Answers simple questions/follows commands 06:08 PM 165 / 103 86 95 % 8 06:12 PM 159 / 101 83 96 % 18 06:17 PM 149 / 87 80 96 % 18 06:22 PM 154 / 98 81 98 % 19 06:27 PM 152 / 98 82 98 % 15 06:32 PM 155 / 92 78 97 % 14 Procedural Medications Time Medication Dose Units Method Given By 06:10 PM Oxygen 2 L/min nasal cannula Briseida Perez RN 06:10 PM Versed 2 mg Intravenous [place], Briseida RN 06:23 PM Lidocaine 2% 10 ml Subcutaneous Hussein Fajardo DO ASA Classification: CLASS II- Mild systemic disease (i.e. well-controlled diabetes, hypertension, asthma, cigarette smoking) Manish Score Preprocedure Postprocedure Activity 2- Moves 4 extremities sustained head lift Activity 2- Moves 4 extremities sustained head lift Circulation 2- SBP +/= 20 points of pre-anesthetic level Circulation 2- SBP +/= 20 points of pre-anesthetic level Consciousness 2- Awake and alert oriented x 3 Consciousness 2- Awake and alert oriented x 3 O2 Saturation 2- Able to maintain O2 satruation of 92% on room air O2 Saturation 2- Able to maintain O2 satruation of 92% on room air Respiratory 2- Able to deep breathe and cough well Respiratory 2- Able to deep breathe and cough well Total Score 10 Total Score 10 Contrast Agent: Isovue Diagnostic Contrast: 75 ml Total Contrast: 75 ml Fluoro Dose: 189 mGy Procedure Log Time Note Enter By 05:54 PM CathStat 06:06 PM Case Start 06:07 PM Vitals capture started with the following parameters, Patient=Adult, Interval=5 min, Initial Cngpdvep=496 mmHg, Deflation Rate=5 mmHg, Cuff placed on Right Arm 06:08 PM HR=86 bpm, TKQI=593/103 mmhg, SpO2=95 %, Resp=8 B/min 06:08 PM Recorded ECG: HR=84 Condition=Condition 1 06:08 PM Pt arrived to labor relations officer 2 at 18:08 [facility] 06:09 PM Physician arrived 18:09 [facility] 06:09 PM Meet and debi completed [facility] 06:09 PM Sign in performed according to hospital policy. [facility] 06:09 PM Procedure start 18: [facility] 06:09 PM Jared Eugene RN Position: Show Host Or Hostess Time in: 18:09 [email or web address] 06:09 PM Briseida Perez RN Position: Show Host Or Hostess Time in: 18:09 [facility] 06:09 PM Gayla Gillespie RN Position: Monitor Time in: 18:09 [facility] 06:09 PM Cheri Montgomery RT (R) Position: Scrub Time in: 18:09 [facility] 06:09 PM Patient charges- Angio tray pack, Navilyst 3mm J, Pulse Oximetry and ACIST tubing and transducer [facility]09 PM Hair removed from procedure site in procedure lab using clippers. Bilateral groin prepped with Chloraprep by Valentina, Cheri ROSA (R), safety strap applied then patient was draped. Skin intact. [facility] 06:10 PM Physician arrived 18:10 [facility] :10 PM ASA Class CLASS II- Mild systemic disease (i.e. well-controlled diabetes, hypertension, asthma, cigarette smoking) [facility] PM Meet and debi completed [facility] : PM Sign in performed according to hospital policy. [facility] 06:10 PM Procedure start 18:10 [facility] :10 PM Lidocaine patch removed from right chest by Vladimir [facility] PM Time: 18:10 Oxygen on at 2 L/min per nasal cannula by Briseida Perez RN [facility] PM Time: 18:10 Versed 2 mg Intravenous Given by Briseida Perez RN [facility] : PM Time: 18:10 Patient comfortable and pain free: Yes [facility] :10 PM Time: 18:10LOC: 5 = Fully awake and oriented or at pre-proc level [facility] PM Clinical Presentation: Unstable angina [facility]:12 PM HR=83 bpm, RKVZ=550/101 mmhg, SpO2=96.0 %, Resp=18 B/min, Comment=SR 06:17 PM HR=80 bpm, RAIE=455/87 mmhg, SpO2=96.0 %, Resp=18 B/min, Comment=SR 06:22 PM HR=81 bpm, FXXF=676/98 mmhg, SpO2=98.0 %, Resp=19 B/min, Comment=SR 06:23 PM Time out performed according to hospital policy [facility] : PM Time: 18:23 10 ml Lidocaine 2% to right groin Subcutaneous Given by Hussein Fajardo DO [facility]25 PM Time: 18:10LOC: 3 = Answers simple questions/follows commands [facility]25 PM Time: 18:10 Patient comfortable and pain free: Yes [facility] : PM Micro-Introducer Kit utilized for sheath placement [email or web address] 06:26 PM Access obtained by percutaneous puncture. 6Fr 10cm Terumo [place] sheath placed in right Femoral artery. [id number] [email or web address] 06:26 PM 6Fr FR 4 catheter inserted over the wire DN [email or web address] 06:26 PM Recorded Pressure: LV, HR=82, Condition=Condition 1 (Left Ventricle) LV 117/9/11 06:27 PM Recorded Pressure: LV, Ao, HR=79, Condition=Condition 1 (Left Ventricle) LV 116/8/6, (Aorta) Ao 110/47/81 06:27 PM Catheter selectively placed in left ventricle [email or web address] 06:27 PM Bolus angiogram of left Ventricle complete 10 cc hand injection [email or web address] 06:27 PM RCA angiography performed in multiple views. [email or web address] 06:27 PM HR=82 bpm, OOIV=292/98 mmhg, SpO2=98.0 %, Resp=15 B/min, Comment=SR 06:28 PM Catheter removed [email or web address] 06:28 PM 6Fr FL 4 catheter inserted over the wire [facility] [email or web address] 06:28 PM 0.035 145cm Navilyst 3mmJ wire [id number] [email or web address] 06:29 PM Recorded Pressure: Ao, HR=84, Condition=Condition 1 (Aorta) Ao 133/89/109 06:29 PM LCA angiography performed in multiple views. [email or web address] 06:31 PM Bolus angiogram of left Femoral complete 5ml hand injection [email or web address] 06:31 PM Coronary Dominance: right [email or web address] 06:32 PM Procedure completed at 18:32 [email or web address] 06:32 PM Sign out completed: Radiation Dose 188.65 mGy Fluoro Time: 1.1 Isovue 370 - 200ml contrast 75 ml given by Hussein Fajardo DO. Complications: NoneCardiac Rehab Consult needed: NoConfirmed administered medications: Yes [email or web address] 06:32 PM HR=78 bpm, NAJS=724/92 mmhg, SpO2=97.0 %, Resp=14 B/min 06:33 PM Lesion found in Proximal LAD. Pre Stenosis: 40 Pre LUIS E Flow: [email or web address] 06:33 PM Proximal Left Anterior Descending Coronary Artery with 40% stenosis. If graft is supplying this territory, 0 % stenosis. [email or web address] 06:33 PM Arterial sheath pulled, Angio-seal closure device used and was Successful [id number] S/N. [email or web address] 06:33 PM Post ECG NSR [email or web address] 06:33 PM Post Blood Pressure 155/92 [email or web address] 06:34 PM 18:34 Post Pulses Bilateral DP & PT 1+ [email or web address] 06:34 PM Information taught Cardiac Cath and Angioseal [email or web address] 06:34 PM Education needs Procedure, Plan of Care, and Responsibilities of Patient in Care [email or web address] 06:34 PM Learning barriers :None [email or web address] 06:34 PM Education Methods Verbal [email or web address] 06:34 PM Education evaluation Able to repeat information [email or web address] 06:34 PM Site status No bleeding/hematoma - Rt Groin as reported by Sites, Cheri RT (R) at 18:34 [email or web address] 06:34 PM Opsite applied [email or web address] 06:34 PM Delay to floor No [email or web address] 06:39 PM Report given to Tanya FIGUEROA Pt taken to 3B Room #38. 18:38 [email or web address] 06:40 PM Patient out of room: 18:40 [email or web address] Complications Complication None Hemodynamics Pressures Site Systolic/A Wave Diastolic/V Wave Mean LV 117 9 11 LV 116 8 6 AO 110 47 81 AO 133 89 109 Post Procedure Information Blood Pressure: 155/92 mmHg Rhythm: NSR Post procedural instructions were given Closure Device Time Device Success/Fail 08/11/2017 6:35:00 PM Angio-Seal VIP Successful Site Checks Time Location Status Staff Sheath In? Note 06:34 PM Rt Groin No bleeding/hematoma Sites, Cheri RT (R) Pulses Time Site Pre-Procedure Post-Procedure Note Bilateral DP & PT 1+ Bilateral radial 2+ 6:34:00 PM Bilateral DP & PT 1+ Updated by Jared Eugene RN on 08/11/2017 6:42:53 PM electronically signed on 08/11/2017 6:43:28 PM with status of Final
--- NOTE | 2017-08-11 18:53 | Event Note ---
Date of Encounter: 08/11/17 Time of Encounter: 18:20 - Cardiology Event Note Left Heart Cath Results: LV mild LV systolic impairement, EF 45%, inf hypokinesis LMT - normal LAD 40% proximal, stent sites widely patent CX - stent sites widely patent RCA - stent sites widely patent REC: Medical tx Risk factor modification Eval for non-cardiac causes of chest pain.
[2017-08-11] MEDS: traZODone 50 MG TABLET PO SCH (19:54)
[2017-08-12] MEDS: *HR* HYDROmorphone (PF) 1 MG/ML SYRINGE IVP PRN ×2 (01:44→07:13)
[2017-08-12 04:38] LABS: Hematocrit 29.8 % (37.5-50.1); Hemoglobin 10.2 g/dL (12.9-16.9); Mean Corpuscular HGB Conc 34.2 g/dL (31.6-35.5); Mean Corpuscular Volume 93.4 fL (83.0-100.0); Mean Platelet Volume 10.8 fL (9.4-12.4); Platelet Count 134 K/mcL (140-400); Red Blood Count 3.19 M/mcL (4.19-5.50); Red Cell Distribution Width 13.7 % (11.5-14.5)
[2017-08-12 05:17] LABS: BUN/Creatinine Ratio 18 (6-26); Blood Urea Nitrogen 19 mg/dL (8-26); Calcium 8.4 mg/dL (8.6-10.8); Carbon Dioxide 28 mEq/L (19-29); Chloride 105 mEq/L (98-109); Glucose 296 mg/dL (70-99); Osmolality,Calculated 303 (280-300); Potassium 3.9 mEq/L (3.5-4.5); Sodium 140 mEq/L (136-145); eGFR For African Americans > 60 (> 60); eGFR For Non-African Americans > 60 (> 60)
[2017-08-12] MEDS: Pantoprazole 40 MG VIAL IVP SCH (08:31)
[2017-08-12] MEDS: Insulin LISPRO 300 UNITS/3 ML VIAL SQ SCH (08:32)
[2017-08-12] MEDS: Isosorbide MONOnitrate (24 HR) 30 MG TAB.ER.24H PO SCH (08:33)
[2017-08-12] MEDS: Furosemide 40 MG TABLET PO SCH (08:33)
[2017-08-12] MEDS: Aspirin Enteric Coated 81 MG Tablet PO SCH (08:33)
[2017-08-12] MEDS: Gabapentin 400 MG CAPSULE PO SCH (08:33)
[2017-08-12] MEDS: Baclofen 10 MG TABLET PO SCH (08:34)
[2017-08-12] MEDS: Insulin DETEMIR 100 UNIT/ML X5UNITS SQ SCH (08:44)
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
[2017-08-12 11:26] VITALS: BP 148/93
[2017-08-12] MEDS ORDERED: *HR* OxyCODONE Immed Rel 5 MG TABLET PO ONE (12:01)
== END 2017-08-12 12:33 | disposition home or self-care (01) ==
LOC: 3BNU 09:51 → EMEROO 09:51 → SUATTDRO 12:36 → 3BNU 13:12
PROVIDERS: ADMIT Student in an Organized Health Care Education/Training Program; ATTEND Internal Medicine

== ENCOUNTER 2018-03-11 23:19 | Observation (INO) ==
[2018-03-11] MEDS ORDERED: Aspirin 81 MG TAB.CHEW PO ONE (23:50)
[2018-03-11] MEDS ORDERED: Ondansetron 4 MG/2 ML VIAL IVP ONE (23:50)
[2018-03-11] MEDS ORDERED: *HR* OxyCODONE/APAP 5/325 TABLET PO ONE (23:51)
[2018-03-11 23:52] LABS: Basophils % 0.8 %; Eosinophils # 0.1 K/mcL (0.0-0.6); Eosinophils % 2.5 %; Hematocrit 32.9 % (37.5-50.1); Hemoglobin 11.8 g/dL (12.9-16.9); Immature Granulocytes % 0.2 % (0-4); Lymphocytes # 1.7 K/mcL (0.6-4.6); Lymphocytes % 35.6 %; Mean Corpuscular HGB Conc 35.9 g/dL (31.6-35.5); Mean Corpuscular Volume 91.9 fL (83.0-100.0); Mean Platelet Volume 11.8 fL (9.4-12.4); Monocytes # 0.4 K/mcL (0.0-1.3); Monocytes % 7.8 %; Neutrophils # 2.5 K/mcL (1.6-8.9); Platelet Count 178 K/mcL (140-400); Red Blood Count 3.58 M/mcL (4.19-5.50); Red Cell Distribution Width 13.2 % (11.5-14.5); Segmented Neutrophils % 53.1 %
--- NOTE | 2018-03-11 23:53 | Emergency Department Note ---
Disposition Clinical Impression: Unstable angina, Tobacco abuse Chest pain Qualifiers: Chest pain type: chest pain due to myocardial ischemia Ischemic chest pain type : unstable angina pectoris Qualified Code(s): I20.0 - Unstable angina Disposition: Admitted As Inpatient Condition: Fair Referrals: Richard Monte DO [Primary Care Provider] - Forms: ED Satisfaction Letter Time of Disposition: 02:23 Chest Pain HPI - General Chief Complaint: ED Chest Pain Stated Complaint: cp Time Seen by Provider: 03/11/18 23:43 Source: patient Limitations: no limitations Vital Signs Reviewed: Yes Nursing Notes Reviewed: Yes - History of Present Illness HPI Narrative: 47-year-old male presents ED because of chest pain. For the past 18-20 hours has had recurring episodes of pain across from his chest radiating into both arms. Pain is also associated with nausea and difficulty breathing. Symptoms are worsened by exertion. Symptoms mimic the symptoms he had 4 years ago when he required placement of multiple coronary stents. He has felt fatigued with exertional dyspnea over the past couple weeks. 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 Has history of hyperglycemia with poor glycemic control. Continues smoking a half pack of cigarettes per day. Pt complaint: chest pain Duration: constant Onset: during exertion Pain Location: left chest Severity: moderate Severity scale (1-10): 9 Quality: heaviness Pain Radiation: RUE, LUE Improves with: nothing Worsens with: exertion Associated symptoms: Reports: nausea, diaphoresis, dyspnea Treatments prior to arrival chest pain: none - Related Data Home Medications Medication Instructions Recorded Confirmed Aspirin [Adult Low Dose Aspirin EC] 81 mg PO DAILY 12/14/15 08/09/17 Clopidogrel [Plavix] 75 mg PO DAILY 12/14/15 08/09/17 Metformin HCl [Metformin HCl ER] 1,000 mg PO DAILY 12/14/15 08/09/17 traZODone [TraZODone] 100 mg PO HS 12/14/15 08/09/17 Baclofen 20 mg PO TID 05/16/16 08/09/17 Gabapentin [Neurontin] 800 mg PO TID 01/04/17 08/09/17 Nitroglycerin [Nitrostat] 0.4 mg SL AD PRN 01/04/17 08/09/17 Furosemide [Lasix] 40 mg PO DAILY 03/05/17 08/09/17 Insulin ASPART [Novolog Flexpen] 2 - 10 unit SQ TID 03/05/17 08/09/17 Insulin Glargine,Hum.rec.anlog 70 unit SQ BID 03/05/17 08/09/17 [Lantus Solostar] Potassium Chloride [Klor-Con 10] 10 meq PO DAILY 03/05/17 08/09/17 Loperamide [Imodium] 2 mg PO QID 08/09/17 08/09/17 Previous Rx's Medication Instructions Recorded Atorvastatin [Lipitor] 80 mg PO HS #30 tablet 03/07/17 Isosorbide MONOnitrate (24 HR) 15 mg PO DAILY 30 Days tab.er.24h 04/01/17 [Imdur] Lisinopril [Zestril] 2.5 mg PO DAILY 30 Days tablet 04/01/17 Ondansetron ODT [Zofran ODT] 4 mg SL Q6HR PRN #15 tab.rapdis 08/05/17 Lidocaine Patch [Lidoderm 5% patch] 1 each TP DAILY #30 adh..patch 08/12/17 OxyCODONE Immed Rel [Roxicodone 5 5 mg PO Q6HR PRN #20 tablet 08/12/17 MG] Lidocaine Patch [Lidoderm 5% patch] 1 - 3 each TP DAILY PRN #20 patch 09/30/17 methylPREDNISolone [Medrol] 1 each PO DAILY #1 pack 09/30/17 Azithromycin [Zithromax] 0 tab PO DAILY #6 tablet 12/22/17 Promethazine/Codeine 5 - 10 ml PO Q8HR PRN 6 Days #90 ml 12/22/17 [Phenergan/Codeine] Tobramycin/Dex Opth DROPS 2 drop RIGHT EYE Q4H #10 bottle 12/22/17 [Tobradex Opth Drops] Allergies Allergy/AdvReac Type Severity Reaction Status Date / Time morphine AdvReac Agitated Verified 08/09/17 11:03 All systems ED: reviewed and negative except as stated. Constitutional: Denies: fever Eyes: Denies: eye pain, eye discharge Cardiovascular: Reports: chest pain. Denies: palpitations Respiratory: Reports: dyspnea Gastrointestinal: Reports: nausea Chest Pain PMH - Past Medical History Medical history: Reports: coronary artery disease, diabetes, hyperlipidemia, hypertension, myocardial infarction, other Surgical history: Reports: angioplasty/stent, orthopedic, other Psychiatric history: Reports: depression - Social History Smoking Status: Current every day smoker Alcohol use: Reports: none Drug use: Reports: none Physical Exam - General Limitations: no limitations General appearance: alert, in no apparent distress - Head Head exam: atraumatic, normocephalic - Eye Eye exam: Present: normal appearance - ENT ENT exam: normal exam, normal oropharynx - Neck Neck exam: Present: normal inspection, trachea midline - Chest Chest inspection: Present: normal inspection, symmetric chest wall rise. Absent : tenderness - Respiratory Respiratory exam: Present: wheezes - Cardiovascular Cardiovascular exam: Present: regular rate, normal rhythm - Abdominal Exam Abdominal exam: Present: soft, Non-Tender - Extremities Exam Extremities exam: Present: normal capillary refill. Absent: tenderness - Expanded Lower Extremity Exam Lower leg exam: Absent: tenderness, swelling - Back Exam Back exam: Present: normal inspection. Absent: CVA tenderness (R), CVA tenderness (L) - Neurological Exam Neurological exam: Present: alert, oriented X3 - Psychiatric Psychiatric exam: Present: normal affect, normal mood - Skin Skin exam: Present: warm, dry Course - Reevaluation(s) Reevaluation #1: 46-year-old presents with recurrence of his typical anginal: With pain in the front of his chest radiating to both arms associated with exertional dyspnea. Presenting EKG is normal, awaiting troponin Will warrant admission for further evaluation. Time: 23:55 Reevaluation #2: Chest pain is improved but not resolved. Second EKG remains unremarkable. Troponin is slightly elevated. Discussed with hospitalist for admission. The high probability of a clinically significant, sudden or life threatening deterioration of the [cardiovascular] system(s) required my full and direct attention, intervention and personal management. The aggregate critical care time was [32] minutes. This time is in addition to time spent performing reported procedures but includes the following: [x] Data Review and interpretation [x] Patient assessment and monitoring of vital signs [x] Documentation [x] Medication orders and management Time: 02:22 Vital Signs Temperature 97.4 F L 03/11/18 23:20 Pulse Rate 78 03/11/18 23:20 Respiratory Rate 20 03/11/18 23:20 Blood Pressure 109/75 03/11/18 23:20 O2 Sat by Pulse Oximetry 96 03/11/18 23:20 Temperature 97.4 F L 03/11/18 23:20 Pulse Rate 66 03/12/18 01:23 Respiratory Rate 18 03/12/18 01:23 Blood Pressure 128/80 03/12/18 01:23 O2 Sat by Pulse Oximetry 97 03/12/18 01:23 Oxygen Delivery Oxygen Delivery Room Air Chest Pain - MDM Narrative Medical decision making narrative: Interpretation EKG #2; normal sinus rhythm with a rate of 66. Electrical indices are within normal limits. [place] is normal. No acute ST or T-wave abnormalities appreciated. Nonspecific intraventricular conduction delay. - Lab Data Result diagrams: 03/11/18 23:37 03/11/18 23:37 Lab Results 03/11/18 03/11/18 03/11/18 Range/Units 23:37 23:37 23:37 WBC 4.7 (4.3-11.1) K/mcL RBC 3.58 L (4.19-5.50) M/mcL Hgb 11.8 L (12.9-16.9) g/dL Hct 32.9 L (37.5-50.1) % MCV 91.9 (83.0-100.0) fL MCH 33.0 (28.0-33.3) pg MCHC 35.9 H (31.6-35.5) g/dL RDW 13.2 (11.5-14.5) % Plt Count 178 (140-400) K/mcL MPV 11.8 (9.4-12.4) fL Immature Gran % 0.2 (0-4) % Seg Neutrophils % 53.1 % Lymphocytes % 35.6 % Monocytes % 7.8 % Eosinophils % 2.5 % Basophils % 0.8 % Neutrophils # 2.5 (1.6-8.9) K/mcL Lymphocytes # 1.7 (0.6-4.6) K/mcL Monocytes # 0.4 (0.0-1.3) K/mcL Eosinophils # 0.1 (0.0-0.6) K/mcL Basophils # 0.0 (0.0-0.2) K/mcL PT 12.0 (9.4-12.1) Seconds INR 1.1 APTT 33.1 (26.0-36.0) Seconds Sodium 134 L (136-145) mEq/L Potassium 4.0 (3.5-5.1) mEq/L Chloride 103 (98-107) mEq/L Carbon Dioxide 24 (23-29) mEq/L BUN 43 H (6-20) mg/dL Creatinine 2.04 H (0.70-1.30) mg/dL Est GFR ( Amer) 43 L (> 60) Est GFR (Non-Af Amer) 35 L (> 60) BUN/Creatinine Ratio 21 (6-26) Glucose 399 H (70-105) mg/dL Calculated Osmolality 306 H (280-300) Calcium 8.9 (8.6-10.3) mg/dL Troponin I 0.05 H* (< 0.04) ng/mL - EKG Data EKG attestation: Yes I reviewed and interpreted this EKG. EKG results narrative: Sinus rhythm rate of 79. Electrical indices within normal limits. Electrical axis is normal. No acute ST or T-wave abnormalities appreciated. Nonspecific intraventricular conduction delay. EKG shows normal: sinus rhythm, axis, QRS complexes, ST-T waves Rate: normal Rhythm: NSR
[2018-03-11] MEDS ORDERED: Nitroglycerin 0.4 MG TAB.SUBL SL PRN (23:56)
[2018-03-11 23:58] LABS: INR 1.1
[2018-03-12 00:01] LABS: Activated Partial Thrombo Time 33.1 Seconds (26.0-36.0)
[2018-03-12 00:13] LABS: Calcium 8.9 mg/dL (8.6-10.3)
[2018-03-12 00:21] LABS: Troponin I 0.05 ng/mL (< 0.04)
[2018-03-12] MEDS ORDERED: Heparin 25,000 UNIT/500 ML D5W 25,000 UNIT/500 ML BAG IVC SCH (00:30)
[2018-03-12] MEDS ORDERED: 0.9 % Sodium Chloride 1,000 ML IVC ONE (00:45)
[2018-03-12] MEDS ORDERED: *HR* FentaNYL (PF) 100 MCG/2 ML VIAL IVP ONE (00:48)
[2018-03-12] MEDS ORDERED: Naloxone 0.4 MG/ML INJ IVP PRN (02:32)
[2018-03-12] MEDS ORDERED: Acetaminophen 325 MG TABLET PO PRN (02:32)
[2018-03-12] MEDS ORDERED: D5% in Water 1,000 ML IVC PRN (02:35)
[2018-03-12] MEDS ORDERED: Dextrose Gel 15 GM/37.5 ML TUBE PO PRN ×2 (02:35)
[2018-03-12] MEDS ORDERED: *HR* Dextrose 50 % in Water (Syg) 50 ML SYRINGE IVP PRN (02:35)
[2018-03-12] MEDS ORDERED: Ringers Solution, Lactated 1,000 ML IVC SCH (02:45)
--- NOTE | 2018-03-12 04:01 | Internal Med History&Physical ---
Date of Encounter: 03/12/18 Time of Encounter: 04:01 Internal Medicine - H&P: HPI Chief complaint: Chest pain Admitted From: Emergency Dept Plans for Post Hospital Care: Home History of present illness: Mr. Hi is a 47 year old male patient with history of coronary artery disease and prior stents presented to the ER with complaints of chest pain. Symptoms began 2 days back. He reports chest pain all across his chest. It was radiating across his both arms. He continues to have mild chest pain at this time. Associated with shortness of breath. Also has been having cough. Denies any palpitations. He has had some lightheadedness since coming to the ER. He reports the pain is similar in nature to the time when he had his stent. he had a left heart catheterization done in July 2017 which showed 40% stenosis in proximal LAD. Prior stents were patent. Past Med Surg Social Fam HX - Past Medical History Attestation: Yes The following information was validated with the patient. Source: patient Medical history: coronary artery disease, diabetes, hyperlipidemia, hypertension , myocardial infarction, other Additional medical history: SC x2, back pain, Hep C Psychiatric history: depression - Past Surgical History Surgical History: angioplasty/stent, orthopedic, other Additional surgical history: 6 stents, 6 back surgeries - Social History Smoking Status: Current every day smoker Packs per day: less than 1 PPD Smokeless Tobacco Status: No Alcohol use: none Drug use: none - Family History Mother Family Member Ethnicity: Non- Living Status: Still Living Hx Family Cardiac Disorders: Yes (HTN, HLD) Hx Family Respiratory Disorders: No Hx Family Cancer: No Hx Family GI Disorders: Yes (Irritable bowel syndrome) Hx Family Endocrine Disorder: Yes Hx Family Neuromuscular Disorders: No Hx Family Neurologic Disorders: No Hx Family HEENT Disorders: No Hx Family Autoimmune Disorders: No Father Hx Family Cardiac Disorders: Yes (CAD s/p CABG) Internal Medicine - H&P: Meds Aspirin [Adult Low Dose Aspirin EC] 81 mg PO DAILY 12/14/15 [History] Clopidogrel [Plavix] 75 mg PO DAILY 12/14/15 [History] Metformin HCl [Metformin HCl ER] 1,000 mg PO DAILY 12/14/15 [History] traZODone [TraZODone] 100 mg PO HS 12/14/15 [History] Baclofen 20 mg PO TID 05/16/16 [History] Gabapentin [Neurontin] 800 mg PO TID 01/04/17 [History] Nitroglycerin [Nitrostat] 0.4 mg SL AD PRN 01/04/17 [History] Furosemide [Lasix] 40 mg PO DAILY 03/05/17 [History] Insulin ASPART [Novolog Flexpen] 2 - 10 unit SQ TID 03/05/17 [History] Insulin Glargine,Hum.rec.anlog [Lantus Solostar] 70 unit SQ BID 03/05/17 [ History] Potassium Chloride [Klor-Con 10] 10 meq PO DAILY 03/05/17 [History] Atorvastatin [Lipitor] 80 mg PO HS #30 tablet 03/07/17 [Rx] Isosorbide MONOnitrate (24 HR) [Imdur] 15 mg PO DAILY 30 Days tab.er.24h [Rx] Lisinopril [Zestril] 2.5 mg PO DAILY 30 Days tablet 04/01/17 [Rx] Ondansetron ODT [Zofran ODT] 4 mg SL Q6HR PRN #15 tab.rapdis 08/05/17 [Rx] Loperamide [Imodium] 2 mg PO QID 08/09/17 [History] Lidocaine Patch [Lidoderm 5% patch] 1 each TP DAILY #30 adh..patch 08/12/17 [Rx] OxyCODONE Immed Rel [Roxicodone 5 MG] 5 mg PO Q6HR PRN #20 tablet 08/12/17 [Rx] Lidocaine Patch [Lidoderm 5% patch] 1 - 3 each TP DAILY PRN #20 patch 09/30/17 [ Rx] methylPREDNISolone [Medrol] 1 each PO DAILY #1 pack 09/30/17 [Rx] Azithromycin [Zithromax] 0 tab PO DAILY #6 tablet 12/22/17 [Rx] Promethazine/Codeine [Phenergan/Codeine] 5 - 10 ml PO Q8HR PRN 6 Days #90 ml 09/29 [Rx] Tobramycin/Dex Opth DROPS [Tobradex Opth Drops] 2 drop RIGHT EYE Q4H #10 bottle 12/22/17 [Rx] 3 Allergy/AdvReac Type Severity Reaction Status Date / Time morphine AdvReac Agitated Verified 08/09/17 11:03 All Systems PM: A 10-system review of systems was performed and is negative for pertinent findings except as documented above in the HPI. - Constitutional Constitutional: no chills, no fever(s), no night sweats - EENT Eyes: no change in vision, no discharge, no pain, no photophobia Ears: no ear discharge, no ear pain, no tinnitus Nose, mouth and throat: no dysphagia, no nasal discharge, no neck pain, no sore throat - Cardiovascular Cardiovascular ROS IM: chest pain, no diaphoresis, no dyspnea, no lightheadedness, no palpitations, no syncope - Respiratory Respiratory: dyspnea, no cough, no wheezing, no excessive phlegm production - Gastrointestinal Gastrointestinal: no abdominal pain, no diarrhea, no hematemesis, no hematochezia, no melena, no nausea, no vomiting - Musculoskeletal Musculoskeletal ROS IM: no numbness, no tingling - Integumentary Integumentary IM: no rash, no unusual bruising - Neurological Neurological ROS: no confusion, no convulsions, no focal weakness, no numbness, no tingling, no tremor(s) - Hematologic/Lymphatic Hematologic/Lymphatic: no easy bruising - Constitutional Vitals: Temp Pulse Resp BP Pulse Ox 97.4 F L 65 16 138/82 96 03/12/18 03:34 03/12/18 03:34 03/12/18 03:34 03/12/18 03:34 03/12/18 03:34 General appearance: Present: cooperative, A&O X 3, answers questions appropriately - Respiratory Respiratory exam: Present: CTAB. Absent: accessory muscle use, rales, rhonchi, wheezes - Cardiovascular Cardiovascular exam: Present: RRR, +S1, +S2. Absent: diastolic murmur, gallop, rubs, systolic murmur - GI/Abdominal GI/Abdominal exam: Present: normal bowel sounds, soft, no peritoneal signs. Absent: distended, tenderness - Extremities Exam Extremities exam: Present: warm, radial pulses palpable and symmetrical. Absent : calf tenderness, cyanotic, pedal edema - Neurological Exam Neurological exam: Present: CN II-XII intact, oriented X3, no focal deficits. Absent: facial droop, speech deficit Internal Med - H&P Results - Labs CBC & Chem 7: 03/11/18 23:37 03/11/18 23:37 - EKG Data -: EKG Interpreted by Myself EKG shows normal: sinus rhythm - EKG Data Interpretation IM: normal EKG - Impressions Impressions Chest X-Ray 03/11/18 23:33 IMPRESSION: Stable portable study. D/ / Lorin Wilson Cha, MD / Lorin Wilson Cha, MD Interpreting Provider: Lorin Wilson Cha, MD - Assessment and plan (1) Chest pain Current Visit: Yes Status: Acute Assessment and plan: Patient presenting with chest pain. Has mild elevation in troponin but does have underlying acute kidney injury. Started on IV heparin drip in the ER. We will continue for now while we await repeat troponins. If repeat troponins remained adynamic, will stop IV heparin drip. We will get 2-D echocardiogram. Consider cardiology consult. Qualifiers: Chest pain type: precordial pain Qualified Code(s): R07.2 - Precordial pain (2) TROY (acute kidney injury) Current Visit: Yes Status: Acute Assessment and plan: Patient has elevated BUN and creatinine above his baseline. Creatinine 2.04. We will treat with IV fluids. Monitor renal function closely. Avoid nephrotoxic agents. Patient is on Lasix at home. Will hold for now. (3) Diabetes mellitus type 2 in nonobese Current Visit: Yes Status: Acute Assessment and plan: Uncontrolled. Blood sugars are elevated. Will place patient on Levemir and sliding scale insulin coverage. (4) HTN (hypertension) Current Visit: Yes Status: Chronic Assessment and plan: Monitor blood pressure. Continue home medications. Qualifiers: Hypertension type: essential hypertension Qualified Code(s): I10 - Essential (primary) hypertension (5) DVT prophylaxis Current Visit: No Status: Acute Assessment and plan: Currently on IV heparin - Time Spent With Patient Total time spent is greater than 50% in coordination of care (as documented) at patient's floor/unit and/or counseling patient:
[2018-03-12] MEDS ORDERED: 0.9 % Sodium Chloride 1,000 ML IVC SCH (05:00)
[2018-03-12] MEDS ORDERED: Baclofen 10 MG TABLET PO PRN (05:01)
[2018-03-12] MEDS: Gabapentin 400 MG CAPSULE PO SCH ×3 (05:43→21:38)
[2018-03-12] MEDS: Baclofen 10 MG TABLET PO SCH ×3 (05:44→21:38)
[2018-03-12] MEDS: *HR* HYDROcodone/Acet 5/325 mg TABLET PO PRN ×4 (05:44→21:37)
[2018-03-12] MEDS: 0.9 % Sodium Chloride 1,000 ML IVC SCH ×2 (05:56→21:38)
[2018-03-12] MEDS: Insulin LISPRO 300 UNITS/3 ML VIAL SQ SCH ×4 (05:56→17:14)
--- NOTE | 2018-03-12 07:23 | Electrocardiograph Report ---
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
[2018-03-12 07:33] LABS: Calcium 8.3 mg/dL (8.6-10.3); Potassium 4.3 mEq/L (3.5-5.1)
[2018-03-12 08:27] LABS: Estimated Average Glucose 229 mg/dl; Hemoglobin A1C 9.6 %
[2018-03-12] MEDS: Insulin DETEMIR 100 UNIT/ML X5UNITS SQ SCH ×2 (10:40→21:38)
[2018-03-12] MEDS: Aspirin Enteric Coated 81 MG Tablet PO SCH (10:50)
--- NOTE | 2018-03-12 16:40 | Internal Med Progress Note ---
Date of Encounter: 03/12/18 Time of Encounter: 16:37 - Assessment and plan (1) Chest pain Current Visit: Yes Status: Acute Assessment and plan: Patient reporting midsternal chest pain with radiation to bilateral chest, bilateral arms and left shoulder. Chest pain with anginal equivalent including worsening with exertion, shortness of breath, diaphoresis. Prior history of GA 2 with total of 6/10. Risk factors include DM, HLD, HTN, family history, smoking history. Initial troponin is elevated at 0.05, subsequent troponin 0.03. Continuing to have chest pain rated 4/10. Continue heparin drip TTE-LVEF 45%, left ventricular systolic dysfunction with regional variations, mild concentric left ventricular hypertrophy, mild left ventricular diastolic dysfunction, normal right ventricular structure and function, mild mitral regurgitation, [id number] tricuspid regurgitation, mild pulmonary regurgitation, no pulmonary hypertension Stress test in the morning Nothing by mouth after midnight Consider cardio consult based on stress test and TTE results Remain on telemetry and closely monitor hemodynamic status Qualifiers: Chest pain type: precordial pain Qualified Code(s): R07.2 - Precordial pain (2) HTN (hypertension) Current Visit: Yes Status: Chronic Assessment and plan: History of hypertension Patient currently mildly hypertensive with SBP in the 170s Resume home medications now and closely monitor IV hydralazine when necessary for SBP greater than 160 Qualifiers: Hypertension type: essential hypertension Qualified Code(s): I10 - Essential (primary) hypertension (3) Diabetes mellitus type 2 in nonobese Current Visit: Yes Status: Acute Assessment and plan: Uncontrolled type 2 diabetes. Hemoglobin A1c today 9.6. Discussed lifestyle modifications and need for diabetic diet Basal insulin and sliding scale coverage (4) TROY (acute kidney injury) Current Visit: Yes Status: Acute Assessment and plan: Acute kidney injury with BUN and creatinine of the patient's baseline Creatinine 2.04 yesterday, 1.60 today and improving Continue gentle IV fluids and monitor renal function closely Continue renal protective measures (5) DVT prophylaxis Current Visit: Yes Status: Acute Assessment and plan: Currently on IV heparin drip per ACS protocol, continue - Time Spent With Patient Total time spent is greater than 50% in coordination of care (as documented) at patient's floor/unit and/or counseling patient: 25 - 35 minutes - Subjective Interval history: Mr. Hi is a 47-year-old male with a history of CAD, GA 2, total of 6 stents. Patient presented with reports of midsternal chest pain with radiation to both sides of the chest and bilateral arms as well as left shoulder. Today' s continuing to endorse midsternal chest pain/pressure rated 4/10. Denies any shortness of breath, dizziness or diaphoresis but reports that he has had these symptoms prior to admission. - Constitutional Vitals: Temp Pulse Resp BP Pulse Ox 97.8 F 67 18 173/102 96 03/12/18 15:13 03/12/18 15:13 03/12/18 15:13 03/12/18 15:13 03/12/18 15:13 General appearance: Present: cooperative, A&O X 3, answers questions appropriately - Head Head exam: Present: atraumatic, normocephalic - Eye Eye exam: Present: PERRL, conjuntiva pink, sclera anicteric Pupils: Present: PERRL - Neck Neck exam general surgery: Present: supple, trachea midline. Absent: lymphadenopathy - Respiratory Respiratory exam: Present: CTAB. Absent: accessory muscle use, rales, rhonchi, wheezes - Cardiovascular Cardiovascular exam: Present: RRR, +S1, +S2. Absent: diastolic murmur, gallop, rubs, systolic murmur - GI/Abdominal GI/Abdominal exam: Present: normal bowel sounds, soft, no peritoneal signs. Absent: distended, tenderness - Extremities Exam Extremities exam: Present: warm, radial pulses palpable and symmetrical. Absent : calf tenderness, cyanotic, pedal edema - Neurological Exam Neurological exam: Present: CN II-XII intact, oriented X3, no focal deficits. Absent: pronater drift, facial droop, speech deficit - Skin Skin exam: Present: dry, intact Internal Medicine: Result - Labs CBC & Chem 7: 03/11/18 23:37 03/12/18 06:40 Labs: BMP 03/12/18 06:40 Sodium 135 L Potassium 4.3 Chloride 105 Carbon Dioxide 24 BUN 40 H Creatinine 1.60 H Glucose 381 H Calcium 8.3 L Cardiac Enzymes 03/12/18 03/12/18 Range/Units 06:40 12:52 Troponin I 0.03 0.03 (< 0.04) ng/mL - ABG Interpretation ABG results: PT/INR, D-dimer PT 12.0 Seconds (9.4-12.1) 03/11/18 23:37 - Impressions Impressions Echocardiogram 03/12/18 04:10 Impressions: LVEF 45%. LV systolic dysfunction with regional variations. Mild concentric left ventricular hypertrophy. Mild left ventricular diastolic dysfunction. Normal right ventricular structure and function. Mild mitral regurgitation. Mild-moderate tricuspid regurgitation. Mild pulmonic regurgitation. No pulmonary hypertension. Left Ventricular Wall Motion: Rest Echo Findings The mid inferior, basal inferior septal, mid inferior lateral and basal inferior lateral wilson were hypokinetic. The basal inferior wall was akinetic. All other wall segments showed normal motion. Findings: Study Quality * Technically adequate exam. ECG Findings * Normal sinus rhythm. Left Ventricle * LVEF 45%. * Mild concentric left ventricular hypertrophy. * Mild left ventricular diastolic dysfunction. * Normal LV chamber size. Right Ventricle * Normal right ventricular structure and function. Left Atrium * Moderate-severely dilated left atrium. Right Atrium * Normal right atrial size. Aortic Valve * No aortic regurgitation. * Trileaflet aortic valve. * No aortic stenosis. Mitral Valve * Normal mitral valve structure. * No mitral stenosis. * Mild mitral regurgitation. Tricuspid Valve * Normal tricuspid valve structure. * Mild-moderate tricuspid regurgitation. * Estimated RA pressure is 3 mmHg. * Estimated RVSP is 30 mmHg. * No pulmonary hypertension. Pulmonic Valve * Pulmonic valve is not well visualized. * No pulmonic stenosis. * Mild pulmonic regurgitation. Pulmonary Artery * Pulmonary artery not well visualized. Aorta * Normally sized aortic root. Pericardium * There is no pericardial effusion present. Interatrial Septum * No evidence of PFO by color Doppler. IVC * Normal IVC dimensions and inspiratory collapse. Consult Discharge Plan - Plan Referrals: Richard Monte DO [Primary Care Provider] -
[2018-03-13] MEDS: Insulin LISPRO 300 UNITS/3 ML VIAL SQ SCH ×3 (00:41→12:12)
[2018-03-13 06:00] LABS: Basophils % 0.7 %; Eosinophils # 0.1 K/mcL (0.0-0.6); Eosinophils % 2.4 %; Hematocrit 32.1 % (37.5-50.1); Immature Granulocytes % 0.3 % (0-4); Lymphocytes # 0.9 K/mcL (0.6-4.6); Lymphocytes % 31.9 %; Mean Corpuscular HGB Conc 34.3 g/dL (31.6-35.5); Mean Corpuscular Hemoglobin 31.7 pg (28.0-33.3); Mean Corpuscular Volume 92.5 fL (83.0-100.0); Mean Platelet Volume 11.3 fL (9.4-12.4); Monocytes # 0.3 K/mcL (0.0-1.3); Monocytes % 8.7 %; Neutrophils # 1.6 K/mcL (1.6-8.9); Platelet Count 127 K/mcL (140-400); Red Blood Count 3.47 M/mcL (4.19-5.50); Red Cell Distribution Width 13.3 % (11.5-14.5)
[2018-03-13 06:21] LABS: BUN/Creatinine Ratio 24 (6-26); Blood Urea Nitrogen 27 mg/dL (6-20); Calcium 8.7 mg/dL (8.6-10.3); Carbon Dioxide 26 mEq/L (23-29); Chloride 108 mEq/L (98-107); Glucose 281 mg/dL (70-105); Osmolality,Calculated 297 (280-300); Potassium 4.9 mEq/L (3.5-5.1); Sodium 136 mEq/L (136-145); eGFR For African Americans > 60 (> 60); eGFR For Non-African Americans > 60 (> 60)
[2018-03-13] MEDS ORDERED: Regadenoson 0.4 MG/5 ML SYRINGE IVP ONE (08:01)
[2018-03-13] MEDS ORDERED: Isosorbide MONOnitrate (24 HR) 30 MG TAB.ER.24H PO SCH (09:00)
[2018-03-13] MEDS: *HR* HYDROcodone/Acet 5/325 mg TABLET PO PRN (09:36)
[2018-03-13] MEDS: Baclofen 10 MG TABLET PO SCH (09:36)
[2018-03-13] MEDS: Aspirin Enteric Coated 81 MG Tablet PO SCH (09:36)
[2018-03-13] MEDS: 0.9 % Sodium Chloride 1,000 ML IVC SCH (09:37)
[2018-03-13] MEDS: Insulin DETEMIR 100 UNIT/ML X5UNITS SQ SCH (09:37)
[2018-03-13] MEDS: Gabapentin 400 MG CAPSULE PO SCH (09:37)
[2018-03-13 11:48] VITALS: BP 155/88
--- NOTE | 2018-03-13 13:37 | Internal Med Progress Note ---
Date of Encounter: 03/13/18 Time of Encounter: 13:33 - Assessment and plan (1) Chest pain Current Visit: Yes Status: Acute Assessment and plan: Patient reporting midsternal chest pain with radiation to bilateral chest, bilateral arms and left shoulder. Chest pain with anginal equivalent including worsening with exertion, shortness of breath, diaphoresis. Prior history of ME 2 with total of 6/10. Risk factors include DM, HLD, HTN, family history, smoking history. Initial troponin is elevated at 0.05, subsequent troponin 0.03. Continuing to have chest pain rated 4/10. Continue heparin drip TTE-LVEF 45%, left ventricular systolic dysfunction with regional variations, mild concentric left ventricular hypertrophy, mild left ventricular diastolic dysfunction, normal right ventricular structure and function, mild mitral regurgitation, [id number] tricuspid regurgitation, mild pulmonary regurgitation, no pulmonary hypertension Stress test in the morning Nothing by mouth after midnight Consider cardio consult based on stress test and TTE results Remain on telemetry and closely monitor hemodynamic status Qualifiers: Chest pain type: precordial pain Qualified Code(s): R07.2 - Precordial pain (2) HTN (hypertension) Current Visit: Yes Status: Chronic Assessment and plan: History of hypertension Patient currently mildly hypertensive with SBP in the 170s Resume home medications now and closely monitor IV hydralazine when necessary for SBP greater than 160 Qualifiers: Hypertension type: essential hypertension Qualified Code(s): I10 - Essential (primary) hypertension (3) Diabetes mellitus type 2 in nonobese Current Visit: Yes Status: Acute Assessment and plan: Uncontrolled type 2 diabetes. Hemoglobin A1c today 9.6. Discussed lifestyle modifications and need for diabetic diet Basal insulin and sliding scale coverage (4) TROY (acute kidney injury) Current Visit: Yes Status: Acute Assessment and plan: Acute kidney injury with BUN and creatinine of the patient's baseline Creatinine 2.04 yesterday, 1.60 today and improving Continue gentle IV fluids and monitor renal function closely Continue renal protective measures (5) DVT prophylaxis Current Visit: Yes Status: Acute - Time Spent With Patient Total time spent is greater than 50% in coordination of care (as documented) at patient's floor/unit and/or counseling patient: 25 - 35 minutes - Subjective Interval history: Mr. Hi is a 47-year-old male with a history of CAD, ME 2, total of 6 stents. Patient presented with reports of midsternal chest pain with radiation to both sides of the chest and bilateral arms as well as left shoulder. No acute changes overnight, stable today, seen examined at bedside. Today's continuing to endorse midsternal chest pain/pressure rated 4/10. He continues to deny shortness of breath, dizziness or diaphoresis. - Constitutional Vitals: Temp Pulse Resp BP Pulse Ox 98.9 F 90 18 155/88 98 03/13/18 11:43 03/13/18 11:43 03/13/18 11:43 03/13/18 11:43 03/13/18 11:43 General appearance: Present: cooperative, A&O X 3, answers questions appropriately - Head Head exam: Present: atraumatic, normocephalic - Eye Eye exam: Present: PERRL, conjuntiva pink, sclera anicteric Pupils: Present: PERRL - Neck Neck exam general surgery: Present: supple, trachea midline. Absent: lymphadenopathy - Respiratory Respiratory exam: Present: CTAB. Absent: accessory muscle use, rales, rhonchi, wheezes - Cardiovascular Cardiovascular exam: Present: RRR, +S1, +S2. Absent: diastolic murmur, gallop, rubs, systolic murmur - GI/Abdominal GI/Abdominal exam: Present: normal bowel sounds, soft, no peritoneal signs. Absent: distended, tenderness - Extremities Exam Extremities exam: Present: warm, radial pulses palpable and symmetrical. Absent : calf tenderness, cyanotic, pedal edema - Neurological Exam Neurological exam: Present: CN II-XII intact, oriented X3, no focal deficits. Absent: pronater drift, facial droop, speech deficit - Skin Skin exam: Present: dry, intact Internal Medicine: Result - Labs CBC & Chem 7: 03/13/18 05:39 03/13/18 05:39 Labs: Short CBC 03/13/18 Range/Units 05:39 WBC 2.9 L (4.3-11.1) K/mcL Hgb 11.0 L (12.9-16.9) g/dL Hct 32.1 L (37.5-50.1) % Plt Count 127 L (140-400) K/mcL Neutrophils # 1.6 (1.6-8.9) K/mcL BMP 03/13/18 05:39 Sodium 136 Potassium 4.9 Chloride 108 H Carbon Dioxide 26 BUN 27 H Creatinine 1.13 Glucose 281 H Calcium 8.7 - ABG Interpretation ABG results: PT/INR, D-dimer PT 12.0 Seconds (9.4-12.1) 03/11/18 23:37 Consult Discharge Plan - Plan Referrals: Richard Monte, [Primary Care Provider] - (Your appointment has been webrequested. Our offices will call you with an appointment time and date. )
--- NOTE | 2018-03-13 13:39 | Discharge Summary ---
- NOTES TO OUTPATIENT PROVIDER Notes to Outpatient Provider: Patient admitted with midsternal chest pain, troponin mildly elevated but normalized. Stress test completed found to be negative for acute ischemia, perfusion imaging negative for ischemia. Patient instructed to follow-up with PCP within one week. Imdur dose increased Orders not resulted at time of discharge: Pending orders 03/12/18 14:45 NM terry perf SPECT multi [NM] Routine 03/14/18 04:00 Basic Metabolic Panel AM 0400 03/15/18 04:00 Basic Metabolic Panel AM 0400 Date of Encounter: 03/13/18 Time of Encounter: 13:37 - Discharge Diagnosis (1) Chest pain Priority: Primary Status: Acute Assessment and Plan: Patient presented with midsternal chest pain with radiation to bilateral chest, bilateral arms and left shoulder Chest pain and anginal equivalent His prior history of PR, risk factors including DM, HLD, HTN, family history and smoking history Initial troponin elevated at 0.05, subsequent troponin 0.03 Patient is stress test this morning negative for ischemia, perfusion imaging negative for ischemia TTE with LVEF 45%, LV systolic dysfunction, mild LV hypertrophy, mild LV diastolic dysfunction, mild mitral regurg, mild pulmonic regurg Continue to have 4/10 chest discomfort located midsternally without radiation Patient offered cardio consult to discuss need for potential left heart catheter ; patient declined cardio consult and/or possible left heart catheter reporting he will follow-up with his primary care doctor and admin secretary as an outpatient. Patient is requesting to be discharged home. He has been informed that he would benefit from additional workup and evaluation but declines further workup and evaluation and continues to request discharge He has been advised to quit smoking Imdur increased to 30 mg daily Uneventful hospital course Patient instructed to follow-up with his PCP within 1 week of discharge, no numbness or difficulty with cardiology within 1-2 weeks of discharge Additionally, he is instructed to return to the ED should chest pain symptoms worsen Qualifiers: Chest pain type: precordial pain Qualified Code(s): R07.2 - Precordial pain (2) HTN (hypertension) Priority: Secondary Status: Chronic Assessment and Plan: History of hypertension, blood pressure stable throughout stay. Some documentation of hypertension. However, I believe these to be an accurate as blood pressure improved almost immediately without intervention Continue home and HTN medications upon discharge Patient instructed to monitor BP closely return to the ED showed develop hypertensive urgency Denies any further needs or questions at this time Qualifiers: Hypertension type: essential hypertension Qualified Code(s): I10 - Essential (primary) hypertension (3) Diabetes mellitus type 2 in nonobese Priority: Secondary Status: Acute Assessment and Plan: Poorly controlled type 2 diabetes, Hgb A1c 9.6 Discussed lifestyle modifications and need for strict diabetic diet Continue diabetic medications at discharge (4) TROY (acute kidney injury) Priority: Secondary Status: Acute Assessment and Plan: Resolved (5) DVT prophylaxis Priority: Secondary Status: Acute Hospital course: Mr. Hi is a 47 year old male Please see assessment and plan for hospital course Discharge discussed with: patient, nurse - Time Spent with Patient Total time spent providing and/or coordinating discharge services: Less than 30 minutes - Discharge Medications Prescriptions: Isosorbide MONOnitrate (24 HR) [Imdur] 30 mg PO DAILY 30 Days #30 tab.er.24h Home Medications: Clopidogrel [Plavix] 75 mg PO DAILY 12/14/15 [History] Metformin HCl [Metformin HCl ER] 1,000 mg PO DAILY 12/14/15 [History] traZODone [TraZODone] 100 mg PO HS 12/14/15 [History] Baclofen 20 mg PO TID 05/16/16 [History] Gabapentin [Neurontin] 800 mg PO TID 01/04/17 [History] Nitroglycerin [Nitrostat] 0.4 mg SL AD PRN 01/04/17 [History] Furosemide [Lasix] 40 mg PO DAILY PRN 03/05/17 [History] Potassium Chloride [Klor-Con 10] 10 meq PO DAILY PRN 03/05/17 [History] Atorvastatin [Lipitor] 80 mg PO HS #30 tablet 03/07/17 [Rx] Lisinopril [Zestril] 2.5 mg PO DAILY 30 Days tablet 04/01/17 [Rx] Ondansetron ODT [Zofran ODT] 4 mg SL Q6HR PRN #15 tab.rapdis 08/05/17 [Rx] Loperamide [Imodium] 2 mg PO QID PRN 08/09/17 [History] Aspirin [Lo-Dose Aspirin EC] 81 mg PO DAILY 03/12/18 [History] Diclofenac Potassium 50 mg PO BID 03/12/18 [History] Doxycycline Hyclate 100 mg PO BID 03/12/18 [History] Dulaglutide [Trulicity] 60 mg SQ HS 03/12/18 [History] Orphenadrine Citrate 100 mg PO BID PRN 03/12/18 [History] Pantoprazole Sodium [Protonix] 40 mg PO DAILY 03/12/18 [History] cephALEXin [Keflex] 500 mg PO Q6H 03/12/18 [History] Isosorbide MONOnitrate (24 HR) [Imdur] 30 mg PO DAILY 30 Days #30 tab.er.24h 10/30 [Rx] Allergies/Adverse Reactions: 3 Allergy/AdvReac Type Severity Reaction Status Date / Time morphine AdvReac Agitated Verified 03/12/18 09:11 Date of admission: 03/12/18 02:45 Primary care physician: Phong Hardy Discharging clinician: Jairon Moore Anticipated date of discharge: 03/13/18 - Constitutional Vitals: Temp Pulse Resp BP Pulse Ox 98.9 F 90 18 155/88 98 03/13/18 11:43 03/13/18 11:43 03/13/18 11:43 03/13/18 11:43 03/13/18 11:43 General appearance: Present: cooperative, A&O X 3, answers questions appropriately - Head Head exam: Present: atraumatic, normocephalic - Eye Eye exam: Present: PERRL, conjuntiva pink, sclera anicteric Pupils: Present: PERRL - Neck Neck exam general surgery: Present: supple, trachea midline. Absent: lymphadenopathy - Respiratory Respiratory exam: Present: CTAB. Absent: accessory muscle use, rales, rhonchi, wheezes - Cardiovascular Cardiovascular exam: Present: RRR, +S1, +S2. Absent: diastolic murmur, gallop, rubs, systolic murmur - GI/Abdominal GI/Abdominal exam: Present: normal bowel sounds, soft, no peritoneal signs. Absent: distended, tenderness - Extremities Exam Extremities exam: Present: warm, radial pulses palpable and symmetrical. Absent : calf tenderness, cyanotic, pedal edema - Neurological Exam Neurological exam: Present: CN II-XII intact, oriented X3, no focal deficits. Absent: pronater drift, facial droop, speech deficit - Skin Skin exam: Present: dry, intact - Patient Status Disposition: Home, Self-Care Condition: Fair Overall status at discharge: patient is progressing back to baseline - Discharge Instructions Follow Up With: Richard Monte DO [Primary Care Provider] - (Your appointment has been webrequested. Our offices will call you with an appointment time and date. ) - Diet and Activity Activity: increase activity as tolerated Diet: advance to your usual diet
--- NOTE | 2018-03-15 10:45 | Electrocardiograph Report ---
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
== END 2018-03-13 13:30 | disposition home or self-care (01) ==
LOC: 3BNU 23:19 → EMEROO 23:19 → 3BNU 03-12 02:53
PROVIDERS: ADMIT Internal Medicine; ATTEND Internal Medicine

== ENCOUNTER 2019-12-01 21:07 | Observation (INO) ==
[2019-12-01 22:22] LABS: Basophils % 0.7 %; Eosinophils # 0.1 K/mcL (0.0-0.6); Hematocrit 32.7 % (37.5-50.1); Hemoglobin 10.3 g/dL (12.9-16.9); Lymphocytes # 0.9 K/mcL (0.6-4.6); Lymphocytes % 31.5 %; Mean Corpuscular HGB Conc 31.5 g/dL (31.6-35.5); Mean Corpuscular Hemoglobin 29.8 pg (28.0-33.3); Mean Corpuscular Volume 94.5 fL (83.0-100.0); Mean Platelet Volume 11.7 fL (9.4-12.4); Monocytes # 0.3 K/mcL (0.0-1.3); Monocytes % 9.7 %; Neutrophils # 1.6 K/mcL (1.6-8.9); Platelet Count 122 K/mcL (140-400); Red Blood Count 3.46 M/mcL (4.19-5.50); Red Cell Distribution Width 15.4 % (11.5-14.5); Segmented Neutrophils % 55.1 %
[2019-12-01] MEDS ORDERED: methylPREDNISolone 125 MG/2 ML VIAL IVP ONE (22:39)
[2019-12-01] MEDS ORDERED: Ipratropium/Albuterol Neb 3 ML IH ONE (22:39)
[2019-12-01 22:56] LABS: BUN/Creatinine Ratio 28 (6-26); Blood Urea Nitrogen 51 mg/dL (6-20); Calcium 8.5 mg/dL (8.6-10.3); Carbon Dioxide 24 mEq/L (23-29); Chloride 107 mEq/L (98-107); Glucose 210 mg/dL (70-105); Osmolality,Calculated 302 (280-300); Potassium 6.8 mEq/L (3.5-5.1); Sodium 136 mEq/L (136-145); Troponin I < 0.03 ng/mL (< 0.04); eGFR For African Americans 48 (> 60); eGFR For Non-African Americans 39 (> 60)
[2019-12-01] MEDS ORDERED: Sodium Bicarbonate 50 MEQ/50 ML VIAL IVP ONE (23:02)
[2019-12-01] MEDS ORDERED: *HR* Dextrose 50 % in Water (Syg) 50 ML SYRINGE IVP ONE (23:02)
[2019-12-01] MEDS ORDERED: Insulin Human Regular 10 UNIT in 0.9 % Sodium Chloride 10 ML IV ONE (23:02)
[2019-12-01] MEDS ORDERED: Calcium Gluconate 1,000 MG/10 ML VIAL IVP STA (23:05)
[2019-12-01] MEDS ORDERED: Naloxone 0.4 MG/ML INJ IVP PRN (23:30)
[2019-12-01] MEDS ORDERED: Calcium Gluconate 1gm/50mL 1 GM/50 ML BAG IVPB ONE (23:30)
[2019-12-01] MEDS ORDERED: Nitroglycerin 0.4 MG TAB.SUBL SL PRN (23:32)
[2019-12-01] MEDS ORDERED: Dextrose Gel 15 GM/37.5 ML TUBE PO PRN ×2 (23:33)
[2019-12-01] MEDS ORDERED: *HR* Dextrose 50 % in Water (Syg) 50 ML SYRINGE IVP PRN (23:33)
[2019-12-01] MEDS ORDERED: D5% in Water 1,000 ML IVC PRN (23:33)
[2019-12-01] MEDS ORDERED: Albuterol 2.5 MG/3 ML NEBULIZER IH ONE (23:36)
[2019-12-01] MEDS ORDERED: Albuterol 2.5 MG/3 ML NEBULIZER IH PRN (23:37)
[2019-12-02 01:21] LABS: Hematocrit 32.3 % (37.5-50.1); Hemoglobin 10.2 g/dL (12.9-16.9); Mean Corpuscular HGB Conc 31.6 g/dL (31.6-35.5); Mean Corpuscular Hemoglobin 29.3 pg (28.0-33.3); Mean Corpuscular Volume 92.8 fL (83.0-100.0); Mean Platelet Volume 11.9 fL (9.4-12.4); Platelet Count 111 K/mcL (140-400); Red Blood Count 3.48 M/mcL (4.19-5.50); Red Cell Distribution Width 15.2 % (11.5-14.5); White Blood Count 2.6 K/mcL (4.3-11.1)
[2019-12-02 01:22] LABS: INR 1.4; Prothrombin Time 15.8 Seconds (9.4-12.1)
[2019-12-02 01:47] LABS: BUN/Creatinine Ratio 27 (6-26); Blood Urea Nitrogen 50 mg/dL (6-20); Calcium 8.5 mg/dL (8.6-10.3); Carbon Dioxide 24 mEq/L (23-29); Chloride 109 mEq/L (98-107); Glucose 224 mg/dL (70-105); Osmolality,Calculated 306 (280-300); Potassium 4.8 mEq/L (3.5-5.1); Sodium 138 mEq/L (136-145); Troponin I < 0.03 ng/mL (< 0.04); eGFR For African Americans 49 (> 60); eGFR For Non-African Americans 40 (> 60)
[2019-12-02] MEDS ORDERED: *HR* Labetalol 20 MG/4 ML SYRINGE IVP ONE (02:01)
[2019-12-02] MEDS ORDERED: Azithromycin 500 MG in D5% in Water 250 ML IVPB SCH (04:00)
[2019-12-02] MEDS: Ipratropium/Albuterol Neb 3 ML IH SCH ×3 (04:16→15:58)
[2019-12-02] MEDS: MethylPREDNISolone 40 MG/ML VIAL IVP SCH ×2 (05:22→11:43)
[2019-12-02] MEDS ORDERED: Perflutren Lipid Microsphere 1.3 ML in 0.9 % Sodium Chloride 8.7 ML IVP ONE (07:22)
[2019-12-02] MEDS: Insulin LISPRO 300 UNITS/3 ML VIAL SQ SCH ×2 (09:03→11:43)
[2019-12-02 11:25] VITALS: BP 188/95
[2019-12-02] MEDS ORDERED: Insulin LISPRO 300 UNITS/3 ML VIAL SQ SCH (21:00)
== END 2019-12-02 16:30 | disposition home or self-care (01) ==
LOC: EMEROOARM 21:07 → 2ANU 21:07 → SUATTDRO 23:58 → 2ANU 12-02 01:03
PROVIDERS: ADMIT Internal Medicine; ATTEND Internal Medicine